=== PATIENT | male | born 1955 | race Caucasian/White ===

== ENCOUNTER → 2017-02-09 | Outpatient (CLI) | payer OTHER ==
[2017-02-09 09:22] LABS: EKG EKG PERFORMED
[2017-02-09 10:10] LABS: Appearance,Urine Clear (Clear); Bilirubin,Urine Negative (Negative); Glucose,Urine (UA) 3+ (Negative); Ketones,Urine Negative (Negative); Leukocyte Esterase,Urine Negative (Negative); Nitrite,Urine Negative (Negative); Protein,Urine Trace (Negative); Specific Gravity,Urine 1.021 (1.001-1.035); UA Billing (MACRO vs. MICRO) CHEM
[2017-02-09 10:16] LABS: CH 33.3; CHCM 35.8; HCT 47.4 % (39.0-53.0); HDW 2.66; HGB 16.2 gm/dL (13.0-17.5); MCH 31.9 pg (25.0-35.0); MCHC 34.2 g/dL (31.0-37.0); MCV 93.4 fL (80.0-100.0); Mean Platelet Volume 7.5; RBC 5.07 m/uL (4.30-5.90); RDW 14.1 % (11.5-15.5); WBC 7.3 k/uL (3.8-10.6)
[2017-02-09 10:24] LABS: INR 1.1 (<1.2); Partial Thromboplastin Time 23.1 sec (22.0-30.0); Prothrombin Time 10.6 sec (9.0-12.0)
[2017-02-09 10:49] LABS: ALT 89 U/L (21-72); AST 46 U/L (17-59); Alkaline Phosphatase 81 U/L (38-126); Anion Gap 10 mmol/L; Blood Urea Nitrogen 16 mg/dL (9-20); Calcium 9.5 mg/dL (8.4-10.2); Carbon Dioxide 27 mmol/L (22-30); Chloride 103 mmol/L (98-107); Glucose 185 mg/dL (74-99); Non-African American GFR(MDRD) >60 (>60 ml/min/1.73 sqM); Potassium 4.8 mmol/L (3.5-5.1); Sodium 140 mmol/L (137-145); Total Bilirubin 0.8 mg/dL (0.2-1.3); Total Protein 7.1 g/dL (6.3-8.2)
== END | disposition home or self-care (01) ==
LOC: LABPAT 09:09
PROVIDERS: ATTEND Orthopaedic Surgery
DX: Z01.810 Encounter for preprocedural cardiovascular examination (principal); M16.11 Unilateral primary osteoarthritis, right hip; Z01.812 Encounter for preprocedural laboratory examination
CPT/HCPCS: 80053; 81003; 85027; 85610; 85730; 87070; 93005

== ENCOUNTER 2017-02-20 05:52 | Inpatient (IN) | payer OTHER ==
[2017-02-13 09:35] VITALS: BMI 31.8
[~2017-02-20 05:52] MED LIST: ACETAMINOPHEN TAB 500 MG TAB PO ONE; MELOXICAM 7.5 MG TAB PO ONE; ONDANSETRON 4 MG/2 ML VIAL IVP ONE; TRANEXAMIC ACID 1,000 MG in SODIUM CHLORIDE 0.9% 100 ML IVPB ONE; ceFAZolin 2 GM in SODIUM CHLORIDE 0.9% 100 ML IVPB ONE
[2017-02-20] MEDS ORDERED: LACTATED RINGERS 1,000 ML IV SCH (06:00)
[2017-02-20] MEDS ORDERED: DEXAMETHASONE SOD PHOSPHATE 10 MG/ML 1 ML VIAL IV ONE (06:00)
[2017-02-20] MEDS ORDERED: MIDAZOLAM 2 MG/2 ML VIAL IV PRN (06:00)
[2017-02-20] MEDS ORDERED: ONDANSETRON 4 MG/2 ML VIAL IVP ONE (06:00)
[2017-02-20] MEDS ORDERED: HYDROmorphone 1 MG/ML 1 ML SYRINGE IVP PRN ×3 (06:00→09:48)
[2017-02-20] MEDS ORDERED: SCOPOLAMINE 1.5MG/72HR PATCH TRANSDERM ONE (06:00)
[2017-02-20 06:49] LABS: Glucose,Whole Blood 207 mg/dL (75-99)
[2017-02-20 06:54] VITALS: RESP 16
[2017-02-20] MEDS ORDERED: LIDOCAINE 1% 20 ML VIAL (10MG/ML) FOR IV START INTRADERMA ONE (06:55)
[2017-02-20] MEDS ORDERED: MIDAZOLAM 2 MG/2 ML VIAL ONE (07:40)
[2017-02-20] MEDS ORDERED: ePHEDrine SULFATE/0.9% NACL/PF 50 MG/5 ML SYRINGE IV ONE (07:40)
[2017-02-20] MEDS ORDERED: TRANEXAMIC ACID 1,000 MG/10 ML VIAL ONE (07:40)
[2017-02-20] MEDS ORDERED: ceFAZolin 3,000 MG in SODIUM CHLORIDE 0.9% IRRIGATIO 3,000 ML IRRIGATION ONE (07:40)
[2017-02-20] MEDS ORDERED: SODIUM CHLORIDE 0.9% 100 ML BAG ONE (07:40)
[2017-02-20] MEDS ORDERED: fentaNYL (PF) 50 MCG/ML 2 ML AMP ONE (07:40)
[2017-02-20] MEDS ORDERED: ROPIVACAINE 246.25 MG, EPINEPHrine 0.5 MG, KETOROLAC 30 MG, cloNIDine HCL/PF 80 MCG, WA... MISCELLANE ONE ×5 (07:53)
[2017-02-20] MEDS ORDERED: LACTATED RINGERS 1,000 ML IV ONE ×3 (08:43→10:41)
[2017-02-20] MEDS ORDERED: NALOXONE 0.4 MG/ML 1 ML VIAL IV PRN (09:45)
[2017-02-20] MEDS ORDERED: hydrOXYzine PAMOATE 25 MG CAP PO PRN (09:48)
[2017-02-20] MEDS ORDERED: ONDANSETRON 4 MG/2 ML VIAL IVP PRN (09:48)
[2017-02-20] MEDS ORDERED: HYDROcodone/APAP 5-325MG 1 EACH TAB PO PRN (09:48)
[2017-02-20] MEDS ORDERED: MAGNESIUM HYDROXIDE 2,400 MG/10 ML CUP PO PRN (09:48)
[2017-02-20 10:09] LABS: Glucose,Whole Blood 206 mg/dL (75-99)
--- NOTE | 2017-02-20 10:11 | XR ---
EXAMINATION TYPE: XR Hip Limited RT DATE OF EXAM: 02/20/2017 CLINICAL HISTORY: Right hip pain and osteoarthritis. TECHNIQUE: Single AP portable view of right hip is obtained immediately postoperatively. COMPARISON: None. FINDINGS: Metallic hardware from right hip arthroplasty is seen and appears satisfactory in alignment and position. There is evidence of recent surgery with subcutaneous gas noted laterally. IMPRESSION: Metallic hardware from right hip arthroplasty is satisfactory in position.
[2017-02-20] MEDS ORDERED: INSULIN LISPRO (humaLOG) 300 UNIT/3 ML VIAL SQ ONE (10:12)
--- NOTE | 2017-02-20 10:32 | P.OP ---
Date of Procedure: 02/20/17 Preoperative Diagnosis: Postoperative Diagnosis: Procedure(s) Performed: PREOPERATIVE DIAGNOSIS: Right hip severe osteoarthritis POSTOPERATIVE DIAGNOSIS: 1. Right hip severe osteoarthritis 2. Ganglion cyst, posterior hip joint OPERATION: 1. Right hip total replacement arthroplasty (uncemented implantation with ceramic on polyethylene articulation). 2. Ganglion cyst excision, posterior hip joint ANESTHESIA: Spinal ESTIMATED BLOOD LOSS: 250 mL. CRANE ASSEMBLER: Terri Simmons PA-C (assistance with: patient positioning, retraction, exposure, hemostasis, leg positioning, implantation, irrigation, closure, dressing) COMPLICATIONS: None apparent. COMPONENTS IMPLANTED: Lupe continuum acetabular cup with cluster holes; continuum longevity 15 elevated liner, 32 mm id; Lupe VerSys Fiber Metal stem ; VerSys 32 mm femoral head with +7 mm neck length extension INDICATIONS: Stalin is a 61-year-old male with significant end-stage osteoarthritis involving the right hip and commensurate severe symptoms. He presents to the operating room today for total hip replacement. I have discussed the steps of the operation as well as potential risks and complications as being inclusive of, but not limited to: Leading, infection, scarring, discomfort, or vessel and/or nerve damage, need for further surgery, loosening, dislocation, wear, osteolysis, limb length inequality, fracture, blood clot, pulmonary embolism, , persistent limp, and other risks. The patient is aware these risks and wishes to proceed with surgery and has signed a consent form. PROCEDURE: After appropriate consent was obtained, the patient was taken to the operating room and placed in supine position. Spinal anesthetic was administered and after confirmation of adequate anesthesia, the patient was placed into the lateral decubitus position with the right side up. Care was taken to make sure that all pressure points were adequately padded and he was stabilized to the table with a [place] hip positioner. The right hip was prepped and draped in the usual aseptic fashion using a combination of ChloraPrep and alcohol. [place]an drape was used for the case and the patient received intravenous antibiotics prior to the incision. "Time out" was called , confirming patient identity, side, procedure, availability of implants and administration of antibiotics. The incision was created directly over the greater trochanter and carried slightly posteriorly for a posterior approach to the hip. The incision was then deepened down to subcutaneous tissue and fascia veronica. Fascia veronica was split in line with the incision and split proximally along the fibers of the gluteus marilee. The underlying fibers of the muscle were teased apart using finger dissection and bleeding vessels were picked up and coagulated. Retractor was then placed posteriorly consisting of a blunt Beata. The short external rotators and capsule were exposed using a early elevator and good visualization of the attachment of the external rotators to the femur was established. Of note, a ganglion cyst was noted on the posterior aspect of the joint and was removed during the course of the operation. The cyst fluid was sent for analysis, confirming a cyst with frozen section. The short external rotators and capsule were released using electrocautery from their femoral attachments. These were tagged for later repair. A hockey stick shaped incision was created in the capsule. Joint fluid was evacuated and the patient's hip was able to be dislocated fairly easily. The patient's femoral head was severely arthritic with eburnated bone present and a 360 degrees corcoran of osteophytes. The femoral neck cut was created approximately 5 mm superior to the lesser trochanter using a reciprocating saw. The femoral head and neck fragment was removed and attention was then directed to the acetabulum. An anterior acetabular retractor was applied followed by posterior retraction of the capsule with a Meyerding retractor. This afforded good visualization into the acetabular cavity. Soft tissue was removed and residual cartilage within the acetabular vault was removed using a curette. Labrum was removed using a long-handled knife. Attention was then directed to reaming. The size 48 reamer was used first, followed by increasing increments until the final size reamer was used. Please see the implantation sheet for exact sizes used for the components. Once the final reamer had been utilized to expand the socket it was noted that there was a good supportive bone around the acetabular socket and no further reaming needed to be performed. The trial the same size as the last reamer used was then impacted into the acetabular vault and found to have good fit. The acetabular component, one size (2mm) greater than the trial was then called for. The cluster holes were placed posteriorly and the component was impacted in a position of approximately 40 degrees abduction and 20 degrees anteversion. This matched this patient's kasaan anteversion and it was noted that the cup had excellent stability without need for additional screw fixation. Attention was then directed to the acetabular liner. The anteversion and abduction angle of the component was noted to be very good. A 15 elevated liner was used and locked into position with the elevation posterior superior. Osteophytes around the posterior and inferior aspect of the acetabulum were trimmed as necessary to prevent any impingement. Attention was then directed back to the proximal femur. Retractors were placed around the proximal femur and box osteotome was used followed by canal finder and trochanteric reamer. Cylindrical reaming was performed. Progressive broaching was then performed starting with a #10 broach and progressing final size, in a position of 15 degrees anteversion. Platinum anteversion was within 5 degrees of stem position. The final size broach had excellent fit and fill of the patient's metaphysis and diaphysis. Trial reduction was then performed starting with size 32 mm femoral head and various neck combination of stability , limb length equality, and soft tissue tension. Trial components were then removed. The canal was lavaged and the final size femoral stem component was impacted into position. The implant fit very well and had excellent stability. The femoral head was then impacted onto the [place]re[place] taper. Blood and debris were removed from the acetabular component and the hip was then reduced and checked for stability, limb length and soft tissue tension. These parameters found to be satisfactory, the wound was then thoroughly irrigated with normal saline. Final hemostasis was obtained using electrocautery and IV tranexamic acid, 1 g given at the time of prepping and draping, and another 1 g given at the time of closure. Local anesthetic solution consisting of ropivacaine with epinephrine, clonidine, and ketorolac was also used throughout the case targeting the capsule , fascia, and skin. Closure of the capsule was performed meticulously using #3 Vicryl suture. Four [id number] sutures were placed in the posterior capsule along with repair of the external rotators. The fascia veronica was then repaired using combination of #3 Vicryl suture in interrupted fashion and Quill and running fashion. 2-0 Vicryl suture was used for the subcutaneous tissues and 3-0 Quill for the skin. Dermabond or Steri-Strips were then applied. The patient tolerated the procedure well. There were no complications and the wound bed was dry and there was no need for drain placement. Sterile dressing was then applied and the patient was carefully removed from the operating room table , placed on the stretcher and was taken to the recovery room in stable condition. Sponge and needle counts were correct. Implants: Indications for Procedure: Operative Findings: Description of Procedure:
[2017-02-20] MEDS: MULTIVITAMINS, THERA 1 EACH TAB PO SCH (12:33)
[2017-02-20] MEDS: LACTATED RINGERS 1,000 ML IV SCH (12:35)
[2017-02-20] MEDS: HYDROcodone/APAP 5-325MG 1 EACH TAB PO PRN ×2 (14:01→20:35)
[2017-02-20] MEDS: ceFAZolin 2 GM in SODIUM CHLORIDE 0.9% 100 ML IVPB SCH (18:00)
[2017-02-20] MEDS ORDERED: WARFARIN 5 MG TAB PO ONE (18:00)
[2017-02-20 18:02] LABS: Glucose,Whole Blood 216 mg/dL (75-99)
[2017-02-20] MEDS: INSULIN LISPRO (humaLOG) 300 UNIT/3 ML VIAL SQ SCH ×2 (18:06→20:43)
[2017-02-20] MEDS: metFORMIN 500 MG TAB PO SCH (18:07)
[2017-02-20] MEDS: glipiZIDE 10 MG TAB PO SCH (18:07)
[2017-02-20 20:44] LABS: Glucose,Whole Blood 201 mg/dL (75-99)
[2017-02-20] MEDS ORDERED: metFORMIN 500 MG TAB PO SCH (21:00)
[2017-02-20] MEDS ORDERED: SENNOSIDES-DOCUSATE SODIUM 1 EACH TAB PO SCH (21:00)
[2017-02-20] MEDS: HYDROmorphone 1 MG/ML 1 ML SYRINGE IVP PRN (21:40)
[2017-02-21] MEDS: ceFAZolin 2 GM in SODIUM CHLORIDE 0.9% 100 ML IVPB SCH (02:06)
[2017-02-21] MEDS: HYDROmorphone 1 MG/ML 1 ML SYRINGE IVP PRN (04:02)
[2017-02-21] MEDS: HYDROcodone/APAP 5-325MG 1 EACH TAB PO PRN ×2 (05:51→10:54)
[2017-02-21] MEDS: LACTATED RINGERS 1,000 ML IV SCH ×3 (07:06→09:24)
[2017-02-21 07:12] VITALS: BP 115/68; TEMP 97
[2017-02-21 07:29] LABS: Glucose,Whole Blood 149 mg/dL (75-99)
[2017-02-21] MEDS ORDERED: PANTOPRAZOLE 40 MG TABLET PO SCH (07:30)
[2017-02-21] MEDS: metFORMIN 500 MG TAB PO SCH (07:38)
[2017-02-21] MEDS: glipiZIDE 10 MG TAB PO SCH (07:39)
--- NOTE | 2017-02-21 07:41 | P.CONS ---
History of Present Illness - Reason for Consult Consult date: 02/20/17 heterotopic ossification prophylaxis Requesting physician: Charlie Darling - Chief Complaint right hip ALEXANDRE - History of Present Illness The patient is a 61 year old male with a history of end-stage osteoarthritis of the right hip. His chief complaint was progressively worsening right hip pain and difficulty wiht ambulation. Under the care of Dr. Darling, the patient underwent a right ALEXANDRE and ganglion cyst removal on 02/20/2017. Postoperatively, the patient reports that he does have some soreness but that he is doing well. He has already been working with physical therapy and has been sitting up in a chair. The pain is tolerable, and he is currently non-weight bearing on the right. Review of Systems Constitutional: Denies chills, Denies fever Eyes: denies blurred vision Ears: deny: decreased hearing Ears, nose, mouth and throat: Denies neck lump Cardiovascular: Denies chest pain Respiratory: Denies congestion Gastrointestinal: Denies abdominal pain Musculoskeletal: right: hip pain (postop pain) Neurological: Denies aphasia Psychiatric: Denies confusion Past Medical History Past Medical History: Cancer, Diabetes Mellitus, Deep Vein Thrombosis (DVT), GERD/Reflux, Hyperlipidemia, Hypertension, Prostate Disorder, Sleep Apnea/CPAP/ BIPAP Additional Past Medical History / Comment(s): varicose veins, sleep apnea hx - corrected by surgery, hx prostate cancer History of Any Multi-Drug Resistant Organisms: None Reported Past Surgical History: Orthopedic Surgery, Prostate Surgery, Tonsillectomy Additional Past Surgical History / Comment(s): surgery for sleep apnea, left hand carpal tunnel Past Anesthesia/Blood Transfusion Reactions: No Reported Reaction Smoking Status: Current every day smoker - Past Family History Mother Family Medical History: No Reported History Medications and Allergies Home Medications Medication Instructions Recorded Confirmed Type Aspirin [Adult Low Dose Aspirin EC] 81 mg PO DAILY 02/13/17 02/20/17 History Cyanocobalamin (Vitamin B-12) 1,000 mcg PO DAILY 02/13/17 02/20/17 History [Vitamin B-12] HYDROcodone/APAP 5-325MG [[place] 1 tab PO Q6HR PRN 02/13/17 02/20/17 History 5-325] Hydrochlorothiazide 12.5 mg PO DAILY 02/13/17 02/20/17 History Ibuprofen [Motrin] 800 mg PO TID 02/13/17 02/20/17 History Lansoprazole [Prevacid] 15 mg PO DAILY 02/13/17 02/20/17 History Lisinopril 40 mg PO DAILY 02/13/17 02/20/17 History [place]-3 Acid Ethyl Esters [Lovaza] 1 gm PO BID 02/13/17 02/20/17 History Vitamin B 1 250 mg PO DAILY 02/13/17 02/20/17 History glyBURIDE [Diabeta] 5 mg PO BID 02/13/17 02/20/17 History metFORMIN HCL 1,000 mg PO BID 02/13/17 02/20/17 History metFORMIN HCL [Glucophage Xr] 500 mg PO HS 02/13/17 02/20/17 History HYDROcodone/APAP 5-325MG [[place] 1 - 2 each PO Q4-6H PRN #90 tab 02/20/17 Rx 5-325] Sennosides-Docusate Sodium 1 tab PO BID #60 tablet 02/20/17 Rx [Senokot-S] Warfarin [Coumadin] 2.5 mg PO DAILY 02/20/17 02/20/17 History Warfarin [Coumadin] 2.5 mg PO DAILY #1 tab 02/20/17 Rx Warfarin [Coumadin] 7.5 mg PO ONCE 02/20/17 02/20/17 History Allergies Allergy/AdvReac Type Severity Reaction Status Date / Time No Known Allergies Allergy Verified 02/20/17 06:19 Physical Exam Vitals: Vital Signs Temp Pulse Pulse Resp BP Pulse Ox 02/21/17 07:11 97.0 F L 95 16 115/68 95 02/21/17 02:22 98.8 F 91 16 141/71 98 02/20/17 22:00 99.2 F 99 16 145/72 98 02/20/17 12:45 94 104/66 02/20/17 12:30 98 104/66 02/20/17 12:15 99 103/61 02/20/17 12:00 95 106/63 02/20/17 11:45 94 99/63 02/20/17 11:30 90 110/65 02/20/17 11:15 92 107/64 02/20/17 11:00 83 94/73 02/20/17 10:45 96.4 F L 92 16 100/63 93 L 02/20/17 10:40 90 16 91/56 98 02/20/17 10:25 86 16 90/54 98 02/20/17 09:57 95 16 90/55 96 02/20/17 09:42 98.4 F 96 16 97/56 96 Intake and Output 02/20/17 02/21/17 02/21/17 22:59 06:59 14:59 Intake Total 827 Balance 827 Intake: Oral 827 Other: Voiding Method Toilet Urinal # Voids 1 - Constitutional General appearance: average body habitus, no acute distress - EENT Eyes: EOMI - Neck Neck: no lymphadenopathy - Respiratory Respiratory: bilateral: CTA - Cardiovascular Rhythm: regular Heart sounds: normal: S1, S2 - Gastrointestinal General gastrointestinal: no rigid, no tenderness - Integumentary Integumentary: no flushed, no jaundiced - Neurologic Neurologic: CNII-XII intact - Musculoskeletal Musculoskeletal: strength equal bilaterally - Psychiatric Psychiatric: A&O x's 3 right hip bandage clean, dry and intact Results Labs: Abnormal Lab Results - Last 24 Hours (Table) 02/20/17 02/20/17 02/20/17 Range/Units 10:07 17:59 20:42 POC Glucose (mg/dL) 206 H 216 H 201 H (75-99) mg/dL 02/21/17 Range/Units 07:28 POC Glucose (mg/dL) 149 H (75-99) mg/dL Microbiology - Last 24 Hours (Table) 02/20/17 08:25 Gram Stain - Preliminary Hip - Right 02/20/17 08:25 Anaerobic Culture - Preliminary Hip - Right Assessment and Plan Plan: 1. Right ALEXANDRE heterotopic ossification prophylaxis: I discussed with the patient that it was felt that he would benefit from prophylactic treatment for heterotopic bone formation. I explained that heterotopic bone forms postoperatively and can increase pain, discomfort and cause decreased range of motion as well as life of the prosthesis. I explained that a single dose of radiotherapy delivered to the hip within the first 48-72 hours postoperatively has been shown to decrease formation of this heterotopic bone growth. I discussed that this would have minimal toxicity but may cause some fatigue, mild skin changes, reversible azoospermia and rarely issues with healing. The patient has a previous history of prostate cancer treated with radical prostatectomy, but never was given radiotherapy. The patient is agreeable to undergo this therapy. He will be brought down this afternoon for treatment. ADDENDUM: Single fraction of radiotherapy delivered without incident approximately 5 pm 02/20/17. Time with Patient: Greater than 30
[2017-02-21 07:47] VITALS: PULSE 90
[2017-02-21 07:47] LABS: Basophils % (A) 0 %; CH 32.3; Eosinophils % (A) 0 %; HCT 36.6 % (39.0-53.0); HDW 2.72; Luc # (Auto) 0.22; Luc % (Auto) 2; Lymphocytes # (A) 1.7 k/uL (1.0-4.8); Lymphocytes % (A) 15 %; MCH 32.2 pg (25.0-35.0); MCHC 35.7 g/dL (31.0-37.0); MCV 90.1 fL (80.0-100.0); Monocytes # (A) 0.9 k/uL (0-1.0); Monocytes % (A) 8 %; Neutrophils # (A) 8.4 k/uL (1.3-7.7); Neutrophils % (A) 75 %; RBC 4.07 m/uL (4.30-5.90); RDW 12.7 % (11.5-15.5); WBC 11.3 k/uL (3.8-10.6); WBC (Perox) 12.06
[2017-02-21] MEDS: INSULIN LISPRO (humaLOG) 300 UNIT/3 ML VIAL SQ SCH (07:47)
[2017-02-21 07:48] LABS: HGB 13.1 gm/dL (13.0-17.5)
[2017-02-21 07:52] LABS: INR 1.5 (<1.2); Prothrombin Time 15.1 sec (9.0-12.0)
[2017-02-21] MEDS ORDERED: HYDROCHLOROTHIAZIDE 12.5 MG CAP PO SCH (09:00)
[2017-02-21] MEDS ORDERED: MELOXICAM 7.5 MG TAB PO SCH (09:00)
[2017-02-21] MEDS ORDERED: LISINOPRIL 20 MG TAB PO SCH (09:00)
--- NOTE | 2017-02-21 09:35 | P.DS ---
Providers Date of admission: 02/20/17 05:52 Expected date of discharge: 02/21/17 Attending physician: Charlie Darling Consults: 02/20/17 09:44 Consult Physician Urgent Consulting Provider: Royce Sampson Consult Reason/Comments: Radiation right hip Do you want consulting provider notified?: Yes 02/20/17 09:48 Consult Physician Routine Consulting Provider: Ana Maria Polk Consult Reason/Comments: medical management Do you want consulting provider notified?: Yes Primary care physician: James Cortes - Discharge Diagnosis(es) (1) Primary localized osteoarthritis of right hip Current Visit: Yes Status: Acute (2) Status post total hip replacement, right Current Visit: Yes Status: Acute Hospital Course: This is a 61-year-old male with known history of degenerative arthritis of the right hip. The patient presents for evaluation. After discussion and consideration patient elects to proceed with total right hip arthroplasty. The patient is seen preoperatively by his primary care physician and cleared for surgery. Patient is admitted to [facility] on 02/20/2017 for total hip arthroplasty. The procedures performed without complication or sequelae. The patient is doing well postoperatively. Labs and vital signs are stable on day of discharge. On day of discharge patient's hip incision is healing well. There is minimal erythema. There is no drainage noted at this time. There is minimal soft tissue swelling to the hip and thigh. Patient has full foot and ankle motion without difficulty or pain. Neurovascular status to the right lower extremity is intact. Patient is discharged to home in good condition. Please see med rec for accurate list of home medications. Plan - Discharge Summary New Discharge Prescriptions: New HYDROcodone/APAP 5-325MG [[place] 5-325] 1 - 2 each PO Q4-6H PRN #90 tab PRN Reason: Pain Sennosides-Docusate Sodium [Senokot-S] 1 tab PO BID #60 tablet Warfarin [Coumadin] 2.5 mg PO DAILY #1 tab No Action Cyanocobalamin (Vitamin B-12) [Vitamin B-12] 1,000 mcg PO DAILY Aspirin [Adult Low Dose Aspirin EC] 81 mg PO DAILY glyBURIDE [Diabeta] 5 mg PO BID metFORMIN HCL [Glucophage Xr] 500 mg PO HS metFORMIN HCL 1,000 mg PO BID [place]-3 Acid Ethyl Esters [Lovaza] 1 gm PO BID Lisinopril 40 mg PO DAILY Vitamin B 1 250 mg PO DAILY Lansoprazole [Prevacid] 15 mg PO DAILY Hydrochlorothiazide 12.5 mg PO DAILY Ibuprofen [Motrin] 800 mg PO TID HYDROcodone/APAP 5-325MG [[place] 5-325] 1 tab PO Q6HR PRN PRN Reason: Moderate To Severe Pain Warfarin [Coumadin] 7.5 mg PO ONCE Warfarin [Coumadin] 2.5 mg PO DAILY Discharge Medication List Aspirin [Adult Low Dose Aspirin EC] 81 mg PO DAILY 02/13/17 [History] Cyanocobalamin (Vitamin B-12) [Vitamin B-12] 1,000 mcg PO DAILY 02/13/17 [ History] HYDROcodone/APAP 5-325MG [[place] 5-325] 1 tab PO Q6HR PRN 02/13/17 [History] Hydrochlorothiazide 12.5 mg PO DAILY 02/13/17 [History] Ibuprofen [Motrin] 800 mg PO TID 02/13/17 [History] Lansoprazole [Prevacid] 15 mg PO DAILY 02/13/17 [History] Lisinopril 40 mg PO DAILY 02/13/17 [History] [place]-3 Acid Ethyl Esters [Lovaza] 1 gm PO BID 02/13/17 [History] Vitamin B 1 250 mg PO DAILY 02/13/17 [History] glyBURIDE [Diabeta] 5 mg PO BID 02/13/17 [History] metFORMIN HCL 1,000 mg PO BID 02/13/17 [History] metFORMIN HCL [Glucophage Xr] 500 mg PO HS 02/13/17 [History] HYDROcodone/APAP 5-325MG [[place] 5-325] 1 - 2 each PO Q4-6H PRN #90 tab 02/20/17 [Rx] Sennosides-Docusate Sodium [Senokot-S] 1 tab PO BID #60 tablet 02/20/17 [Rx] Warfarin [Coumadin] 2.5 mg PO DAILY 02/20/17 [History] Warfarin [Coumadin] 2.5 mg PO DAILY #1 tab 02/20/17 [Rx] Warfarin [Coumadin] 7.5 mg PO ONCE 02/20/17 [History] Follow up Appointment(s)/Referral(s): Terri Simmons, [place] [[facility]] - 2 Weeks Activity/Diet/Wound Care/Special Instructions: May shower if no drainage from inicision. Toe touch wt bearing RLE w walker. Discharge Disposition: HOME WITH HOME HEALTH SERVICES
[2017-02-21] MEDS: MULTIVITAMINS, THERA 1 EACH TAB PO SCH (10:55)
[2017-02-21 11:41] LABS: Glucose,Whole Blood 208 mg/dL (75-99)
[2017-02-21] MEDS ORDERED: CYANOCOBALAMIN 500 MCG TAB PO SCH (12:00)
--- NOTE | 2017-02-21 15:25 | P.CONS ---
History of Present Illness - Reason for Consult Consult date: 02/21/17 Medical management. - History of Present Illness This is a 61-year-old gentleman not patient was initially briefly evaluated and 02/20/17 however patient had to be moved to radiation therapy and hence a note and a complete consultation is being made on 02/21/2017 Patient was admitted to the hospital after significant osteoarthritis of the right hip status post hip replacement. Patient also underwent a brief radiation therapy thereafter The patient has a history of DVT, hypertension, diabetes mellitus, hypothyroidism. Patient today states that he is doing well denies having any headaches blurry vision nausea vomiting diarrhea. Patient continues to smoke cigarettes however states he quit at this time Review of systems 14 point review of systems was done nonpertinent then all as mentioned above Physical exam Gen. appearance oriented 3 in no distress Neck is supple no JVD Lungs good air entry clear to auscultation no rhonchi or wheezing Heart S1-S2 heard regular rate and rhythm no murmurs appreciated Abdomen is soft nontender no organomegaly bowel sounds are intact Neurologically cranial nerves II-12 grossly intact no focal motor or sensory deficits noted Musculoskeletal right hip tender to palpation appropriately Skin no abnormalities appreciated Assessment and plan #1 osteoarthritis status post hip replacement #2 history of DVT. #3 essential hypertension #4 dyslipidemia #5 diabetes mellitus type II #6 osteoarthritis #7 hypothyroidism Plan Continue Coumadin for his previous history of DVT and current prophylaxis Blood pressures are stable medications were reconciled on admission and discharge negative for the consultation Past Medical History Past Medical History: Cancer, Diabetes Mellitus, Deep Vein Thrombosis (DVT), GERD/Reflux, Hyperlipidemia, Hypertension, Prostate Disorder, Sleep Apnea/CPAP/ BIPAP Additional Past Medical History / Comment(s): varicose veins, sleep apnea hx - corrected by surgery, hx prostate cancer History of Any Multi-Drug Resistant Organisms: None Reported Past Surgical History: Orthopedic Surgery, Prostate Surgery, Tonsillectomy Additional Past Surgical History / Comment(s): surgery for sleep apnea, left hand carpal tunnel Past Anesthesia/Blood Transfusion Reactions: No Reported Reaction Smoking Status: Current every day smoker - Past Family History Mother Family Medical History: No Reported History Medications and Allergies Home Medications Medication Instructions Recorded Confirmed Type Aspirin [Adult Low Dose Aspirin EC] 81 mg PO DAILY 02/13/17 02/20/17 History Cyanocobalamin (Vitamin B-12) 1,000 mcg PO DAILY 02/13/17 02/20/17 History [Vitamin B-12] HYDROcodone/APAP 5-325MG [[place] 1 tab PO Q6HR PRN 02/13/17 02/20/17 History 5-325] Hydrochlorothiazide 12.5 mg PO DAILY 02/13/17 02/20/17 History Lansoprazole [Prevacid] 15 mg PO DAILY 02/13/17 02/20/17 History Lisinopril 40 mg PO DAILY 02/13/17 02/20/17 History Vitamin B 1 250 mg PO DAILY 02/13/17 02/20/17 History glyBURIDE [Diabeta] 5 mg PO BID 02/13/17 02/20/17 History metFORMIN HCL 1,000 mg PO BID 02/13/17 02/20/17 History metFORMIN HCL [Glucophage Xr] 500 mg PO HS 02/13/17 02/20/17 History HYDROcodone/APAP 5-325MG [[place] 1 - 2 each PO Q4-6H PRN #90 tab 02/20/17 Rx 5-325] Sennosides-Docusate Sodium 1 tab PO BID #60 tablet 02/20/17 Rx [Senokot-S] Warfarin [Coumadin] 2.5 mg PO DAILY 02/20/17 02/20/17 History Warfarin [Coumadin] 2.5 mg PO DAILY #1 tab 02/20/17 Rx Warfarin [Coumadin] 7.5 mg PO ONCE 02/20/17 02/20/17 History Allergies Allergy/AdvReac Type Severity Reaction Status Date / Time No Known Allergies Allergy Verified 02/20/17 06:19 Physical Exam Vitals: Vital Signs Temp Pulse Pulse Resp BP Pulse Ox 02/21/17 07:11 97.0 F L 95 16 115/68 95 02/21/17 02:22 98.8 F 91 16 141/71 98 02/20/17 22:00 99.2 F 99 16 145/72 98 02/20/17 21:00 90 95 16 Intake and Output 02/21/17 02/21/17 02/21/17 06:59 14:59 22:59 Intake Total 1400 Output Total 450 Balance 950 Intake: Intake, IV Titration 800 Amount Lactated Ringers 1,000 ml 800 @ 100 mls/hr IV .Q10H [facility] Rx#:[id number] Oral 600 Output: Urine 450 Other: Voiding Method Toilet Urinal # Voids 2 Weight 106.594 kg Patient Weight 02/22/17 06:59 Weight 106.594 kg Results CBC & Chem 7: 02/21/17 06:57 Labs: Abnormal Lab Results - Last 24 Hours (Table) 02/20/17 02/20/17 02/21/17 Range/Units 17:59 20:42 06:57 WBC 11.3 H (3.8-10.6) k/uL RBC 4.07 L (4.30-5.90) m/uL Hct 36.6 L (39.0-53.0) % Neutrophils # 8.4 H (1.3-7.7) k/uL PT (9.0-12.0) sec INR (<1.2) POC Glucose (mg/dL) 216 H 201 H (75-99) mg/dL 02/21/17 02/21/17 02/21/17 Range/Units 06:57 07:28 11:40 WBC (3.8-10.6) k/uL RBC (4.30-5.90) m/uL Hct (39.0-53.0) % Neutrophils # (1.3-7.7) k/uL PT 15.1 H (9.0-12.0) sec INR 1.5 H (<1.2) POC Glucose (mg/dL) 149 H 208 H (75-99) mg/dL Microbiology - Last 24 Hours (Table) 02/20/17 08:25 Gram Stain - Preliminary Hip - Right Wound Culture - Preliminary 02/20/17 08:25 Anaerobic Culture - Preliminary Hip - Right
[2017-02-21] MEDS ORDERED: WARFARIN 7.5 MG TAB PO ONE (18:00)
[2017-02-21] MEDS ORDERED: TEMAZEPAM 15 MG CAP PO PRN (22:00)
[2017-02-22] MEDS ORDERED: WARFARIN 2.5 MG TAB PO SCH (18:00)
== END 2017-02-21 17:32 | disposition home health service (06) | DRG 470 ==
LOC: 2ORMAIN 05:52 → 3SUR 09:49
PROVIDERS: ADMIT Orthopaedic Surgery; ATTEND Orthopaedic Surgery
PROC: 0SB90ZZ Excision of Right Hip Joint, Open Approach (ICD-10-PCS; 2017-02-20)
PROC: 0SR904A Replacement of Right Hip Joint with Ceramic on Polyethylene Synthetic Substitute, Uncemented, Open Approach (ICD-10-PCS; principal; 2017-02-20 07:30)
DX: M16.11 Unilateral primary osteoarthritis, right hip (principal); E11.22 Type 2 diabetes mellitus with diabetic chronic kidney disease; E03.9 Hypothyroidism, unspecified; E78.5 Hyperlipidemia, unspecified; F17.210 Nicotine dependence, cigarettes, uncomplicated; G47.30 Sleep apnea, unspecified; K21.9 Gastro-esophageal reflux disease without esophagitis; I83.90 Asymptomatic varicose veins of unspecified lower extremity; I12.9 Hypertensive chronic kidney disease with stage 1 through stage 4 chronic kidney disease, or unspecified chronic kidney disease; N18.2 Chronic kidney disease, stage 2 (mild); E78.00 Pure hypercholesterolemia, unspecified; M67.451 Ganglion, right hip; Z79.84 Long term (current) use of oral hypoglycemic drugs; Z79.01 Long term (current) use of anticoagulants; Z79.82 Long term (current) use of aspirin; Z79.899 Other long term (current) drug therapy; Z85.46 Personal history of malignant neoplasm of prostate; Z82.49 Family history of ischemic heart disease and other diseases of the circulatory system
CPT/HCPCS: 73501; 85025; 85610; 86850; 86900; 86901; 87070; 87075; 87205

== ENCOUNTER 2020-12-24 09:22 | Emergency (ER) | payer MEDICARE, OTHER ==
[2020-12-24 09:26] VITALS: TEMP 98.6
[2020-12-24] MEDS ORDERED: FUROSEMIDE 10 MG/ML 4 ML VIAL IV STA (09:40)
--- NOTE | 2020-12-24 09:43 | ED ---
General Adult HPI - General Chief complaint: Shortness of Breath Stated complaint: SOB Time Seen by Provider: 12/24/20 09:27 Source: patient, RN notes reviewed, old records reviewed Mode of arrival: ambulatory Limitations: no limitations - History of Present Illness Initial comments: 65-year-old male with a past medical history of heart failure, diabetes mellitus, hyperlipidemia, hypertension and DVT, prostate cancer since to the emergency room for a chief complaint of shortness of breath. Patient has had mild shortness of breath for the past few weeks. States that he has also had increased leg swelling. Patient takes 40 mg daily of Lasix usually for heart failure. He saw his doctor a week ago and they did increase it to 40 twice a day for 3 days. States this helped but as soon as he stopped his symptoms started again. Patient states now his shortness of breath is worse.Patient has no other complaints at this time including chest pain, abdominal pain, nausea or vomiting, headache, or visual changes. - Related Data Home Medications Medication Instructions Recorded Confirmed Aspirin [Adult Low Dose Aspirin EC] 81 mg PO DAILY 02/13/17 12/24/20 metFORMIN HCL 1,000 mg PO BID 02/13/17 12/24/20 metFORMIN HCL [Glucophage Xr] 500 mg PO HS 02/13/17 12/24/20 Clopidogrel [Plavix] 75 mg PO DAILY 12/24/20 12/24/20 Furosemide [Lasix] 40 mg PO DAILY 12/24/20 12/24/20 Insulin Glargine,Hum.rec.anlog 50 unit SQ 12/24/20 12/24/20 [Lantus Solostar] Isosorbide Mononitrate ER [Imdur] 60 mg PO DAILY 12/24/20 12/24/20 Lansoprazole [Prevacid] 30 mg PO DAILY 12/24/20 12/24/20 Magnesium Oxide [Mag-Ox] 400 mg PO DAILY 12/24/20 12/24/20 Metoprolol Succinate [Toprol XL] 100 mg PO DAILY 12/24/20 12/24/20 Pioglitazone [Actos] 30 mg PO DAILY 12/24/20 12/24/20 Rosuvastatin [Crestor] 10 mg PO DAILY 12/24/20 12/24/20 Spironolactone [Aldactone] 50 mg PO DAILY 12/24/20 12/24/20 hydrALAZINE HCL 50 mg PO Q12H 12/24/20 12/24/20 Allergies Allergy/AdvReac Type Severity Reaction Status Date / Time No Known Allergies Allergy Verified 12/24/20 10:38 Review of Systems ROS Statement: Those systems with pertinent positive or pertinent negative responses have been documented in the HPI. ROS Other: All systems not noted in ROS Statement are negative. Past Medical History Past Medical History: Cancer, Heart Failure, Diabetes Mellitus, Deep Vein Thrombosis (DVT), GERD/Reflux, Hyperlipidemia, Hypertension, Prostate Disorder, Sleep Apnea/CPAP/BIPAP Additional Past Medical History / Comment(s): varicose veins, sleep apnea hx - corrected by surgery, hx prostate cancer History of Any Multi-Drug Resistant Organisms: None Reported Past Surgical History: Orthopedic Surgery, Prostate Surgery, Tonsillectomy Additional Past Surgical History / Comment(s): surgery for sleep apnea, left hand carpal tunnel Past Anesthesia/Blood Transfusion Reactions: No Reported Reaction Past Psychological History: No Psychological Hx Reported Smoking Status: Current every day smoker Past Alcohol Use History: Occasional Past Drug Use History: None Reported - Past Family History Mother Family Medical History: No Reported History General Exam Limitations: no limitations General appearance: alert, in no apparent distress Head exam: Present: atraumatic, normocephalic, normal inspection Eye exam: Present: normal appearance, PERRL, EOMI. Absent: scleral icterus, conjunctival injection, periorbital swelling ENT exam: Present: normal exam, mucous membranes moist Neck exam: Present: normal inspection, full ROM. Absent: tenderness, meningismus, lymphadenopathy Respiratory exam: Present: normal lung sounds bilaterally. Absent: respiratory distress, wheezes, rales, rhonchi, stridor Cardiovascular Exam: Present: regular rate, normal rhythm, normal heart sounds. Absent: systolic murmur, diastolic murmur, rubs, gallop, clicks GI/Abdominal exam: Present: soft, normal bowel sounds. Absent: distended, tenderness, guarding, rebound, rigid Neurological exam: Present: alert Course Vital Signs 12/24/20 12/24/20 09:24 11:10 Temperature 98.6 F Pulse Rate 94 79 Respiratory 20 16 Rate Blood Pressure 190/99 153/83 O2 Sat by Pulse 98 97 Oximetry EKG Findings - EKG Comments: EKG Findings:: Normal sinus rhythm, ventricular rate 89, NJ interval 152, QTc 467 Medical Decision Making - Medical Decision Making vitals Are stable. Patient does have mild edema of the lower extremities. Lungs are clear. No rest for distress whatsoever. CBC unremarkable. Glucose 240, patient does have a history of diabetes mellitus for which he does take medication. Troponin is within normal limits. ENT is 9700, no baseline to compare. Chest x-ray shows possible bilateral opacities, no pleural effusions. Patient denies any increase in chronic cough. Denies fevers. No white count. Patient previously reported that he felt much better when he increased his 40 mg daily Lasix to twice a day for 3 days. At this time patient is comfortable with trying this again outpatient until he sees his doctor tomorrow morning. He was a given a dose of IV Lasix here in the emergency room. I patient returns for increased shortness of breath, fevers, or increased swelling. - Lab Data Result diagrams: 12/24/20 09:47 12/24/20 09:47 Lab Results 12/24/20 12/24/20 12/24/20 Range/Units 09:47 09:47 09:47 WBC 8.7 (3.8-10.6) k/uL RBC 4.32 (4.30-5.90) m/uL Hgb 12.5 L (13.0-17.5) gm/dL Hct 36.7 L (39.0-53.0) % MCV 84.9 (80.0-100.0) fL MCH 29.0 (25.0-35.0) pg MCHC 34.2 (31.0-37.0) g/dL RDW 13.4 (11.5-15.5) % Plt Count 469 H (150-450) k/uL MPV 7.2 Neutrophils % 82 % Lymphocytes % 11 % Monocytes % 5 % Eosinophils % 1 % Basophils % 1 % Neutrophils # 7.2 (1.3-7.7) k/uL Lymphocytes # 1.0 (1.0-4.8) k/uL Monocytes # 0.4 (0-1.0) k/uL Eosinophils # 0.1 (0-0.7) k/uL Basophils # 0.0 (0-0.2) k/uL PT 11.4 (9.0-12.0) sec INR 1.1 (<1.2) APTT 22.7 (22.0-30.0) sec Sodium 138 (137-145) mmol/L Potassium 4.8 (3.5-5.1) mmol/L Chloride 103 (98-107) mmol/L Carbon Dioxide 26 (22-30) mmol/L Anion Gap 9 mmol/L BUN 22 H (9-20) mg/dL Creatinine 0.86 (0.66-1.25) mg/dL Est GFR (CKD-EPI)AfAm >90 (>60 ml/min/1.73 sqM) Est GFR (CKD-EPI)NonAf >90 (>60 ml/min/1.73 sqM) Glucose 240 H (74-99) mg/dL Calcium 8.9 (8.4-10.2) mg/dL Magnesium 1.4 L (1.6-2.3) mg/dL Total Bilirubin 0.9 (0.2-1.3) mg/dL AST 19 (17-59) U/L ALT 7 (4-49) U/L Alkaline Phosphatase 61 (38-126) U/L Troponin I (0.000-0.034) ng/mL NT-Pro-B Natriuret Pep pg/mL Total Protein 6.3 (6.3-8.2) g/dL Albumin 3.9 (3.5-5.0) g/dL Coronavirus (PCR) (Not Detectd) 12/24/20 12/24/20 12/24/20 Range/Units 09:47 09:47 11:08 WBC (3.8-10.6) k/uL RBC (4.30-5.90) m/uL Hgb (13.0-17.5) gm/dL Hct (39.0-53.0) % MCV (80.0-100.0) fL MCH (25.0-35.0) pg MCHC (31.0-37.0) g/dL RDW (11.5-15.5) % Plt Count (150-450) k/uL MPV Neutrophils % % Lymphocytes % % Monocytes % % Eosinophils % % Basophils % % Neutrophils # (1.3-7.7) k/uL Lymphocytes # (1.0-4.8) k/uL Monocytes # (0-1.0) k/uL Eosinophils # (0-0.7) k/uL Basophils # (0-0.2) k/uL PT (9.0-12.0) sec INR (<1.2) APTT (22.0-30.0) sec Sodium (137-145) mmol/L Potassium (3.5-5.1) mmol/L Chloride (98-107) mmol/L Carbon Dioxide (22-30) mmol/L Anion Gap mmol/L BUN (9-20) mg/dL Creatinine (0.66-1.25) mg/dL Est GFR (CKD-EPI)AfAm (>60 ml/min/1.73 sqM) Est GFR (CKD-EPI)NonAf (>60 ml/min/1.73 sqM) Glucose (74-99) mg/dL Calcium (8.4-10.2) mg/dL Magnesium (1.6-2.3) mg/dL Total Bilirubin (0.2-1.3) mg/dL AST (17-59) U/L ALT (4-49) U/L Alkaline Phosphatase (38-126) U/L Troponin I 0.029 (0.000-0.034) ng/mL NT-Pro-B Natriuret Pep 9700 pg/mL Total Protein (6.3-8.2) g/dL Albumin (3.5-5.0) g/dL Coronavirus (PCR) Not Detected (Not Detectd) Disposition Clinical Impression: Congestive heart failure Disposition: HOME SELF-CARE Condition: Good Instructions (If sedation given, give patient instructions): Heart Failure (ER), Low-Sodium Diet (ED) Additional Instructions: Please take your 40 mg of Lasix twice per day. Try a low sodium diet. Follow up with your doctor tomorrow at your appointment. If he developed worsening shortness of breath, fevers, or are sitting leg swelling return to the emergency room. Is patient prescribed a controlled substance at d/c from ED?: No Referrals: Mark Miranda MD [Primary Care Provider] - 1-2 days Time of Disposition: 12:50
[2020-12-24 09:56] LABS: Basophils % (A) 1 %; Eosinophils # (A) 0.1 k/uL (0-0.7); Eosinophils % (A) 1 %; HCT 36.7 % (39.0-53.0); HGB 12.5 gm/dL (13.0-17.5); Lymphocytes % (A) 11 %; MCHC 34.2 g/dL (31.0-37.0); MCV 84.9 fL (80.0-100.0); Mean Platelet Volume 7.2; Monocytes # (A) 0.4 k/uL (0-1.0); Monocytes % (A) 5 %; Neutrophils # (A) 7.2 k/uL (1.3-7.7); Neutrophils % (A) 82 %; Platelet Count 469 k/uL (150-450); RBC 4.32 m/uL (4.30-5.90); RDW 13.4 % (11.5-15.5); WBC 8.7 k/uL (3.8-10.6)
[2020-12-24 10:07] LABS: ALT 7 U/L (4-49); African American GFR (CKD) >90 (>60 ml/min/1.73 sqM); Albumin 3.9 g/dL (3.5-5.0); Anion Gap 9 mmol/L; Blood Urea Nitrogen 22 mg/dL (9-20); Calcium 8.9 mg/dL (8.4-10.2); Carbon Dioxide 26 mmol/L (22-30); Chloride 103 mmol/L (98-107); Glucose 240 mg/dL (74-99); INR 1.1 (<1.2); Non-African American GFR(CKD) >90 (>60 ml/min/1.73 sqM); Partial Thromboplastin Time 22.7 sec (22.0-30.0); Prothrombin Time 11.4 sec (9.0-12.0); Sodium 138 mmol/L (137-145); Total Bilirubin 0.9 mg/dL (0.2-1.3); Total Protein 6.3 g/dL (6.3-8.2)
[2020-12-24 10:15] LABS: AST 19 U/L (17-59); Alkaline Phosphatase 61 U/L (38-126); Magnesium 1.4 mg/dL (1.6-2.3); Potassium 4.8 mmol/L (3.5-5.1)
--- NOTE | 2020-12-24 10:41 | XR ---
EXAMINATION TYPE: XR chest 2V DATE OF EXAM: 12/24/2020 CLINICAL HISTORY: difficulty breathing. TECHNIQUE: Frontal and lateral view of the chest. COMPARISON: None FINDINGS: Elevation and eventration of the left hemidiaphragm. The cardiomediastinal silhouette is w ithin normal limits for size. Pulmonary vasculature is prominent centrally with somewhat pruned appea alvin with differential including pulmonary arterial hypertension. Mild scattered patchy airspace opa cities bilaterally. No pleural effusion. No pneumothorax seen. Median sternotomy changes. IMPRESSION: Mild scattered patchy airspace opacities bilaterally may represent infectious or inflammatory pneumon itis, including Covid 19.
[2020-12-24 13:21] VITALS: BP 132/76; PULSE 80; RESP 18
== END 2020-12-24 13:20 | disposition home or self-care (01) ==
LOC: EC 09:22 → SUPCPDRO 09:22 → EC 13:20
DX: I11.0 Hypertensive heart disease with heart failure (principal); I50.9 Heart failure, unspecified; E11.9 Type 2 diabetes mellitus without complications; E78.5 Hyperlipidemia, unspecified; K21.9 Gastro-esophageal reflux disease without esophagitis; G47.30 Sleep apnea, unspecified; F17.200 Nicotine dependence, unspecified, uncomplicated; Z86.718 Personal history of other venous thrombosis and embolism; Z20.822 Contact with and (suspected) exposure to COVID-19; Z79.82 Long term (current) use of aspirin; Z79.4 Long term (current) use of insulin; Z79.02 Long term (current) use of antithrombotics/antiplatelets
CPT/HCPCS: 36415; 83880; 80053; 83735; 84484; 85025; 85610; 85730; 87635; 71046; 99285; 96374; J1940; 93005

== ENCOUNTER 2021-03-17 21:04 | Inpatient (IN) | payer MEDICARE, OTHER ==
--- NOTE | 2021-03-17 21:52 | ED ---
Weakness HPI - General Chief complaint: Weakness Stated complaint: Weakness Time Seen by Provider: 03/17/21 21:13 Source: patient, EMS, RN notes reviewed, old records reviewed Mode of arrival: EMS Limitations: no limitations - History of Present Illness Initial comments: Patient is a 65-year-old male, with past history of heart failure, diabetes, hypertension, sleep male, presenting to the emergency Department as a transfer from [facility] secondary to acute renal failure. Patient presented to their hospital with concerns of weakness that's been progressive over the past 2 months. He has been reporting diarrhea for the past one month. States the weakness has been getting Helio worse, exam hard time even transferring physicians from a laying to standing position. He denies any focal weaknesses. States he has had decreased appetite, denies any nausea or vomiting, no pain today. Patient reports losing weight over the past few months as well. Denies any chest pain or shortness of breath. He denies any peripheral edema. Denies any recent fevers or chills. He states he was started on potassium supplement about one month ago. A few days has been so weak that he has not been taking his medications. His only been urinating about 3 times daily, however he states he does not take in a lot of fluids. He denies any dizziness or lightheaded at this time. Patient was found to have an elevated potassium and in acute renal failure so was transferred here for further treatment. Patient did receive fluid bolus, treatment for hypokalemia prior to arrival to the ER. Patient has no further complaints at this time. Patient's vital signs are stable upon arrival. - Related Data Home Medications Medication Instructions Recorded Confirmed Aspirin [Adult Low Dose Aspirin EC] 81 mg PO DAILY 02/13/17 03/17/21 metFORMIN HCL [Glucophage XR] 500 mg PO HS 02/13/17 03/17/21 metFORMIN HCL [Glucophage] 1,000 mg PO BID 02/13/17 03/17/21 Clopidogrel [Plavix] 75 mg PO DAILY 12/24/20 03/17/21 Furosemide [Lasix] 40 mg PO BID 12/24/20 03/17/21 Insulin Glargine,Hum.rec.anlog 50 unit SQ HS 12/24/20 03/17/21 [Lantus Solostar] Isosorbide Mononitrate ER [Imdur] 60 mg PO DAILY 12/24/20 03/17/21 Magnesium Oxide [Mag-Ox] 800 mg PO DAILY 12/24/20 03/17/21 Metoprolol Succinate [Toprol XL] 100 mg PO DAILY 12/24/20 03/17/21 Rosuvastatin [Crestor] 10 mg PO DAILY 12/24/20 03/17/21 Spironolactone [Aldactone] 50 mg PO DAILY 12/24/20 03/17/21 hydrALAZINE HCL 50 mg PO BID 12/24/20 03/17/21 Cyanocobalamin (Vitamin B-12) 1,000 mcg PO DAILY 03/17/21 03/17/21 [Vitamin B-12] Empagliflozin [Jardiance] 10 mg PO DAILY 03/17/21 03/17/21 Lansoprazole 15 mg PO DAILY 03/17/21 03/17/21 Potassium Chloride ER [K-Dur 20] 20 meq PO DAILY 03/17/21 03/17/21 Sacubitril/Valsartan [Entresto 24 1 tab PO BID 03/17/21 03/17/21 mg-26 mg Tablet] Spironolactone 50 mg PO DAILY 03/17/21 03/17/21 Thiamine HCl [Vitamin B-1] 250 mg PO DAILY 03/17/21 03/17/21 Allergies Allergy/AdvReac Type Severity Reaction Status Date / Time No Known Allergies Allergy Verified 03/17/21 22:57 Review of Systems ROS Statement: Those systems with pertinent positive or pertinent negative responses have been documented in the HPI. ROS Other: All systems not noted in ROS Statement are negative. Past Medical History Past Medical History: Cancer, Heart Failure, Diabetes Mellitus, Deep Vein Thrombosis (DVT), GERD/Reflux, Hyperlipidemia, Hypertension, Prostate Disorder, Sleep Apnea/CPAP/BIPAP Additional Past Medical History / Comment(s): varicose veins, sleep apnea hx - corrected by surgery, hx prostate cancer History of Any Multi-Drug Resistant Organisms: None Reported Past Surgical History: Orthopedic Surgery, Prostate Surgery, Tonsillectomy Additional Past Surgical History / Comment(s): surgery for sleep apnea, left hand carpal tunnel Past Anesthesia/Blood Transfusion Reactions: No Reported Reaction Past Psychological History: No Psychological Hx Reported Smoking Status: Current every day smoker Past Alcohol Use History: Occasional Past Drug Use History: None Reported - Past Family History Mother Family Medical History: No Reported History General Exam - General Exam Comments Initial Comments: GENERAL: Patient is well-developed and well-nourished. Patient is nontoxic and in no acute distress. HEAD: Atraumatic, normocephalic. EYES: Pupils equal round and reactive to light, extraocular movements intact, sclera anicteric, conjunctiva are normal. Eyelids were unremarkable. ENT: TMs normal, nares patent, oropharynx clear without exudates. Dry mucous membranes. NECK: Normal range of motion, supple without lymphadenopathy or JVD. LUNGS: Unlabored respirations. Breath sounds clear to auscultation bilaterally and equ al. No wheezes rales or rhonchi. HEART: Regular rate and rhythm without murmurs, rubs or gallops. ABDOMEN: Soft, nontender, normoactive bowel sounds. No guarding, no rebound. No masses appreciated. : Deferred MUSCULOSKELETAL: Normal extremities with adequate strength and normal range of motion, no pitting or edema. No clubbing or cyanosis. NEUROLOGICAL: Patient is alert and oriented x 3. Motor and sensory are also intact. Cranial nerves II through XII grossly intact. Symmetrical smile. Normal speech. PSYCH: Normal mood, normal affect. SKIN: Warm, Dry, normal turgor, no rashes or lesions noted. Limitations: no limitations Course Vital Signs 03/17/21 21:06 Temperature 97.3 F L Pulse Rate 72 Respiratory 17 Rate Blood Pressure 118/70 O2 Sat by Pulse 96 Oximetry Medical Decision Making - Medical Decision Making H is a 65-year-old male with past history of heart failure, diabetes, hypertension, presenting as a transfer from [facility] for weakness and was found to be in acute renal failure, and hyperkalemia with potassium at 7.2. He was given a bolus of normal saline, hyperkalemia protocol medication including calcium gluconate, sodium bicarb, Humalog, albuterol prior to arrival. Patient's vital signs are stable upon arrival here in our ER. He has no pain anywhere. Upon review of his documentation from [place], rapid Covid is negative, hemoglobin is stable at 16.1, white count is 10.3, sodium is 131, potassium 7.2. CO2 was 9, glucose 209, BUN 98, creatinine 3.4. BNP is 2810, troponin was normal. Patient will be admitted for acute renal failure, hyperkalemia, metabolic acidosis. Patient accepted by Dr. Whyte. We will consult nephrology as well as GI. I did re-order a CMP/CBC, these are pending at this time. Case discussed with Dr. Buenrostro. - Lab Data Result diagrams: 03/17/21 21:59 Disposition Clinical Impression: Hyperkalemia, Acute renal failure, Metabolic acidosis Disposition: ADMITTED IP TO THIS [facility] Condition: Stable Decision Date: 03/17/21 Decision Time: 22:53
[2021-03-17 22:43] LABS: ALT <6 U/L (4-49); African American GFR (CKD) 23 (>60 ml/min/1.73 sqM); Albumin 2.8 g/dL (3.5-5.0); Anion Gap 10 mmol/L; Blood Urea Nitrogen 98 mg/dL (9-20); Calcium 8.7 mg/dL (8.4-10.2); Chloride 112 mmol/L (98-107); Glucose 186 mg/dL (74-99); Non-African American GFR(CKD) 20 (>60 ml/min/1.73 sqM); Sodium 131 mmol/L (137-145); Total Bilirubin 0.5 mg/dL (0.2-1.3); Total Protein 5.8 g/dL (6.3-8.2)
[2021-03-17] MEDS ORDERED: ACETAMINOPHEN TAB 325 MG TAB PO PRN (22:47)
[2021-03-17] MEDS ORDERED: NALOXONE 0.4 MG/ML 1 ML VIAL IV PRN (22:47)
[2021-03-17 23:00] LABS: AST 18 U/L (17-59); Alkaline Phosphatase 53 U/L (38-126); Carbon Dioxide 9 mmol/L (22-30); Potassium 6.9 mmol/L (3.5-5.1)
[2021-03-18] MEDS: SODIUM CHLORIDE 0.9% 1,000 ML IV SCH ×2 (00:26→09:12)
[2021-03-18 01:26] LABS: Anisocytosis Slight; Basophils % (A) 0 %; Eosinophils % (A) 0 %; HCT 46.3 % (39.0-53.0); HGB 14.7 gm/dL (13.0-17.5); Lymphocytes # (A) 1.1 k/uL (1.0-4.8); Lymphocytes % (A) 14 %; MCH 27.6 pg (25.0-35.0); MCHC 31.7 g/dL (31.0-37.0); Mean Platelet Volume 8.2; Monocytes # (A) 0.5 k/uL (0-1.0); Monocytes % (A) 7 %; Neutrophils # (A) 6.1 k/uL (1.3-7.7); Neutrophils % (A) 77 %; Platelet Count 308 k/uL (150-450); RBC 5.32 m/uL (4.30-5.90); RDW 16.3 % (11.5-15.5)
[2021-03-18] MEDS: ATORVASTATIN 20 MG TAB PO SCH (10:51)
[2021-03-18] MEDS: PANTOPRAZOLE 40 MG TABLET PO SCH (10:51)
[2021-03-18] MEDS: CYANOCOBALAMIN 500 MCG TAB PO SCH (10:51)
[2021-03-18 11:58] LABS: Calcium 8.5 mg/dL (8.4-10.2)
[2021-03-18 12:07] LABS: Potassium 6.5 mmol/L (3.5-5.1)
--- NOTE | 2021-03-18 12:20 | P.CONS ---
History of Present Illness - Reason for Consult Consult date: 03/18/21 Diarrhea Requesting physician: Viivane Shell - Chief Complaint Weakness - History of Present Illness This is 65-year-old white male who was transferred to our emergency department yesterday from [facility] with complaints of generalized weakness for the last 2 months duration He has a past medical history of heart failure, diabetes, and hypertension. The patient has reportedly been having diarrhea 2-3 times a day for the last 1 month duration. He states the bowel movements are like water.he denies seeking any medical treatment from his PCP or gastroenterology. He denies any blood in his stool, nausea, or vomiting. He does sometimes get some lower abdominal cramping. He states his last colonoscopy was 3-[address] Peters in [place]. States he had a cold guard last fall which was normal. He denies any recent traveling, denies any fever or chills. He does follow with cardiology and was recently started on interest O, spinal la ctone, and Lasix. States he has been on metformin for 5-6 years. He also complains of a decreased appetite and poor oral intake. on presentation the patient was noted to have a sodium of 131 potassium 6.9 chloride 112 carbon dioxide 9 BUN 98 creatinine 3.08 glucose 186 total bilirubin 0.5 AST 18 ALT less than 6 alkaline phosphatase 53 total protein 5.8 albumin 2.8. Today CBC WBC 8.0 hemoglobin 14.7 hematocrit 46 platelet count 308,000 Review of Systems REVIEW OF SYSTEMS: CARDIOPULMONARY: No chest pain or shortness of breath. Gastrointestinal: no abdominal pain. No nausea or vomiting. No coffee-ground emesis or hematemesis. No hematochezia or.melena. GENITOURINARY: No dysuria or hematuria. MUSCULOSKELETAL: Reports normal range of motion., Joint pain. SKIN: No rashes. No jaundice. ENDOCRINE: No chills, fevers. No excessive weight gain or loss. No polydipsia or polyuria. PSYCHIATRIC: Unremarkable. NEUROLOGY: No change in mental status. Denies dizziness, headache. ENT: Vision unremarkable. CONSTITUTIONAL: No recent weight loss. No fever,chills. Weakness, decreased appetite, poor oral intake. Past Medical History Past Medical History: Cancer, Heart Failure, Diabetes Mellitus, Deep Vein Thrombosis (DVT), GERD/Reflux, Hyperlipidemia, Hypertension, Prostate Disorder, Sleep Apnea/CPAP/BIPAP Additional Past Medical History / Comment(s): varicose veins, sleep apnea hx - corrected by surgery, hx prostate cancer History of Any Multi-Drug Resistant Organisms: None Reported Past Surgical History: Orthopedic Surgery, Prostate Surgery, Tonsillectomy Additional Past Surgical History / Comment(s): surgery for sleep apnea, left hand carpal tunnel Past Anesthesia/Blood Transfusion Reactions: No Reported Reaction Past Psychological History: No Psychological Hx Reported Smoking Status: Current every day smoker Past Alcohol Use History: Occasional Past Drug Use History: None Reported - Past Family History Mother Family Medical History: No Reported History Medications and Allergies Home Medications Medication Instructions Recorded Confirmed Type Aspirin [Adult Low Dose Aspirin EC] 81 mg PO DAILY 02/13/17 03/17/21 History metFORMIN HCL [Glucophage XR] 500 mg PO HS 02/13/17 03/17/21 History metFORMIN HCL [Glucophage] 1,000 mg PO BID 02/13/17 03/17/21 History Clopidogrel [Plavix] 75 mg PO DAILY 12/24/20 03/17/21 History Furosemide [Lasix] 40 mg PO BID 12/24/20 03/17/21 History Insulin Glargine,Hum.rec.anlog 50 unit SQ 12/24/20 03/17/21 History [Lantus Solostar] Isosorbide Mononitrate ER [Imdur] 60 mg PO DAILY 12/24/20 03/17/21 History Magnesium Oxide [Mag-Ox] 800 mg PO DAILY 12/24/20 03/17/21 History Metoprolol Succinate [Toprol XL] 100 mg PO DAILY 12/24/20 03/17/21 History Rosuvastatin [Crestor] 10 mg PO DAILY 12/24/20 03/17/21 History Spironolactone [Aldactone] 50 mg PO DAILY 12/24/20 03/17/21 History hydrALAZINE HCL 50 mg PO BID 12/24/20 03/17/21 History Cyanocobalamin (Vitamin B-12) 1,000 mcg PO DAILY 03/17/21 03/17/21 History [Vitamin B-12] Empagliflozin [Jardiance] 10 mg PO DAILY 03/17/21 03/17/21 History Lansoprazole 15 mg PO DAILY 03/17/21 03/17/21 History Potassium Chloride ER [K-Dur 20] 20 meq PO DAILY 03/17/21 03/17/21 History Sacubitril/Valsartan [Entresto 24 1 tab PO BID 03/17/21 03/17/21 History mg-26 mg Tablet] Spironolactone 50 mg PO DAILY 03/17/21 03/17/21 History Thiamine HCl [Vitamin B-1] 250 mg PO DAILY 03/17/21 03/17/21 History Allergies Allergy/AdvReac Type Severity Reaction Status Date / Time No Known Allergies Allergy Verified 03/17/21 22:57 Physical Exam Vitals: Vital Signs Temp Pulse Resp BP Pulse Ox 03/18/21 09:31 88 18 101/56 100 03/18/21 08:59 97.0 F L 72 18 87/59 98 03/18/21 02:30 62 18 93/58 91 L 03/17/21 21:06 97.3 F L 72 17 118/70 96 Intake and Output 03/17/21 03/18/21 03/18/21 22:59 06:59 14:59 Other: Weight 83.915 kg General appearance: The patient is alert, oriented, appears in no acute distress. HET: Head is normocephalic and atraumatic. Conjunctiva pink. Sclera anicteric. Neck: Supple without lymphadenopathy. Trachea midline. Heart: S1 S2. Regular rate and rhythm. Lungs: Clear to auscultation. Abdomen: Soft, right lower quadrant tenderness, nondistended with bowel sounds. No guarding or rigidity. Skin: No rashes. No jaundice. Extremities: Normal skin color and turgor. No pedal edema. Neurological: No focal deficits. Alert and oriented 3.. Results CBC & Chem 7: 03/18/21 01:04 03/17/21 21:59 Labs: Abnormal Lab Results - Last 24 Hours (Table) 03/17/21 03/18/21 Range/Units 21:59 01:04 RDW 16.3 H (11.5-15.5) % Sodium 131 L (137-145) mmol/L Potassium 6.9 H* (3.5-5.1) mmol/L Chloride 112 H (98-107) mmol/L Carbon Dioxide 9 L* (22-30) mmol/L BUN 98 H (9-20) mg/dL Creatinine 3.08 H (0.66-1.25) mg/dL Glucose 186 H (74-99) mg/dL Total Protein 5.8 L (6.3-8.2) g/dL Albumin 2.8 L (3.5-5.0) g/dL Assessment and Plan (1) Diarrhea Narrative/Plan: 65-year-old male who presented to [facility] with complaints of generalized weakness for the last 2 months duration. He also states with complaints of diarrhea 2-3 times a day which she states are watery, no melena or hematochezia. He denies any associated abdominal pain. He has stated that he has a decreased appetite and poor oral intake. He denies any recent traveling. He was started on new medications by cardiology including Entresto, sprinolactone, and Lasix.his last colonoscopy was 3-[address] Peters in [place]. He also states he had a cold guard last fall which she states was normal. He has not seen anybody for any complaints of diarrhea, he has not taken any antidiarrheals at home yet. States he just bought Imodium Current Visit: Yes Status: Acute Code(s): R19.7 - DIARRHEA, UNSPECIFIED SNOMED Code(s): 65445090 (2) Hyponatremia Current Visit: Yes Status: Acute Code(s): E87.1 - HYPO-OSMOLALITY AND HYPONATREMIA SNOMED Code(s): 58522913 (3) Acute renal failure Current Visit: Yes Status: Acute Code(s): N17.9 - ACUTE KIDNEY FAILURE, UNSPECIFIED SNOMED Code(s): 94022850 (4) Hyperkalemia Current Visit: Yes Status: Acute Code(s): E87.5 - HYPERKALEMIA SNOMED Code(s): 60642472 Plan: 1. Continue symptomatic and supportive care 2. Electrolyte replacement 3. Stool studies ordered 4. Diet as tolerated 5. Nephrology on consult 6. Further recommendations forthcoming based on stool studies Thank you for this consultation, we will continue to follow. Dr. Karthik Peters I agree with the dictator's note, documented as a scribe by Pallavi Trinidad.
[2021-03-18] MEDS ORDERED: CALCIUM GLUCONATE 1 GM in SODIUM CHLORIDE 0.9% 100 ML IVPB ONE (13:15)
[2021-03-18] MEDS: DEXTROSE 5% IN WATER 1,000 ML with SODIUM BICARB (1 MEQ/ML) 150 ML IV SCH ×2 (14:52→23:30)
--- NOTE | 2021-03-18 15:12 | US ---
EXAMINATION TYPE: US kidneys/renal and bladder DATE OF EXAM: 03/18/2021 COMPARISON: NONE CLINICAL HISTORY: RF. Renal failure EXAM MEASUREMENTS: Right Kidney: 12.7 x 6.0 x 6.2 cm Left Kidney: 12.9 x 6.3 x 5.9 cm Right Kidney: Appeared wnl Left Kidney: Appeared wnl Bladder: Pt voided just prior to exam Small amount of ascites inferior to right lobe of liver, and midline pelvis There is no evidence for hydronephrosis at this point in time. No nephrolithiasis is seen. No waldo s are identified. Kidneys show normal cortical medullary differentiation. Spleen is noted to be enlarged incidentally. IMPRESSION: Renal sizes as described. Borderline splenomegaly. There is a small amount of ascites present within the abdomen.
[2021-03-18 16:29] LABS: Glucose,Whole Blood 197 mg/dL (75-99)
--- NOTE | 2021-03-18 17:40 | P.HPIM ---
History of Present Illness H&P Date: 03/18/21 Chief Complaint: Weak and tired History of presenting complaint: This is a pleasant 65-year-old patient, was transferred here from [facility]. 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 Chronic stable medical conditions include congestive heart failure, diabetes, GERD, hypertension, hyperlipidemia, varicose vein, prostate cancer treated with surgery. Patient for about a month has been having diarrhea. About 4-5 times a day. Clear stools. No blood. No abdominal pain. No nausea vomiting. Very poor appetite. No fever no chills. Some shortness of breath. Patient has lost about 60 pounds in the last 2 months. Was unable to get about. Patient's currently in the ER accompanied by his 2 daughters. Patient is smoking up to about a week ago. Also drinking about 12 pack a day close to 9 months ago. At [facility] patient's BUN came back at 98 and creatinine was 3.4. Potassium was 7.2. Nephrology was consulted. Started on IV fluids. At [facility] patient did receive calcium gluconate, insulin, bicarb for the hyperkalemia Review of systems: GEN.: Tired, weight loss decreased appetite EYES: None HEENT: None NECK: None RESPIRATORY: Some shortness of breath CARDIOVASCULAR: None GASTROINTESTINAL: As above GENITOURINARY: None MUSCULOSKELETAL: Some joint pains LYMPHATICS: None HEMATOLOGICAL: None PSYCHIATRY: None NEUROLOGICAL: None Past medical history to include: CHF, diabetes, DVT, GERD, hypertension, hyperlipidemia, prostate cancer, obstructive sleep apnea treated with surgery varicose veins Social history: Lives alone. Smoked for about 40 years averaging about half a pack a day. Stopped about a week ago. Also drinking quite heavily about 12 packs a day for years stopping about 9 months ago. 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 Family history: Reviewed, noncontributory to presentation Physical examination: VITAL SIGNS: 97, 72, 18, 87 x 59, 98% room air GENERAL: BMI 25.1, laying in bed, rather tired appearing. EYES: Pupils equal. Conjunctiva normal. HEENT: External appearance of nose and ears normal, oral cavity grossly normal. NECK: JVD not raised; masses not palpable. HEART: First and second heart sounds are normal; no edema. LUNGS: Respiratory rate normal; decreased breath sounds. ABDOMEN: Soft, slightly distended nontender, liver spleen not palpable, no masses palpable. PSYCH: Alert and oriented x3; mood and affect tiredl. NEUROLOGICAL: Cranial nerves grossly intact; no facial asymmetry, power and sensation grossly intact. LYMPHATICS: No lymph nodes palpable in the axilla and neck INVESTIGATIONS, reviewed in the clinical context: WBC 8 hemoglobin 14.7 platelets 308 potassium 6.5 bicarb 10 BUN 89 creatinine 2.66 Renal ultrasound: Both kidneys within normal limits. Enlarged spleen. Upon presentation: Potassium 6.9 BUN 98 creatinine 3.08, blood glucose 241 Albumin 2.8 Lab work from [facility]: White count 10.3 hemoglobin 16.1, platelets 290 sodium 131 potassium 7.2 BUN 98 creatinine 3.4 Liver function test: Normal Pro-calcitonin 3.08. Troponin I less than 0.012 Influenza type A type B both negative EKG tracing personally reviewed by me-normal sinus rhythm, left bundle-branch block Assessment and plan: -Acute kidney injury likely a combination of ATN and prerenal component by poor oral intake and diarrhea IV fluids. Follow labs. Nephrology consult. Renal ultrasound is unremarkable. -Severe hyperkalemia secondary to acute kidney injury Renal diet. Calcium gluconate. Bicarbonate drip -Severe metabolic acidosis from renal injury. IV bicarbonate drip -Splenomegaly on ultrasound, likely from portal hypertension given history of alcoholism. full abdominal ultrasound for the assessment -Chronic nicotine dependence, cigarette smoker Nicotine patch -Hypotensive shock from fluid loss IV fluid resuscitation. Follow blood pressure closely -Essential hypertension currently low blood pressure Hold off antihypertensive -Hyperlipidemia Crestor 10 mg daily -Chronic congestive heart failure, EF not known Hold off diuretics for now. 2-D echocardiogram. Follow fluid status. Careful hydration. -Diabetes mellitus type 2, chronic insulin Resume Lantus at a 25 units daily at bedtime. Hold off Glucophage. Follow Accu-Cheks. Hold jardiance -GERD Continue PPI -Acute diarrhea for 1 month, with weight loss of 60 pounds in 2 months. Consi silver underlying malignancy. Patient will need endoscopy when more stable. Consult GI. -Acute medical debility, multifactorial Fall precautions. Activity as tolerated. Care was discussed at length with the patient and her daughter the bedside. IV fluids. Bicarbonate drip. Levemir 25 units daily at bedtime. Hold off oral hypoglycemic. Crestor. Oral off antihypertensives. Repeat labs in the morning. 2-D echocardiogram. Abdominal ultrasound Given the complexity and severity of patient's condition expect the patient to be in the hospital at least for 2 overnights Past Medical History Past Medical History: Cancer, Heart Failure, Diabetes Mellitus, Deep Vein Thrombosis (DVT), GERD/Reflux, Hyperlipidemia, Hypertension, Prostate Disorder, Sleep Apnea/CPAP/BIPAP Additional Past Medical History / Comment(s): varicose veins, sleep apnea hx - corrected by surgery, hx prostate cancer History of Any Multi-Drug Resistant Organisms: None Reported Past Surgical History: Orthopedic Surgery, Prostate Surgery, Tonsillectomy Additional Past Surgical History / Comment(s): surgery for sleep apnea, left hand carpal tunnel Past Anesthesia/Blood Transfusion Reactions: No Reported Reaction Past Psychological History: No Psychological Hx Reported Smoking Status: Current every day smoker Past Alcohol Use History: Occasional Past Drug Use History: None Reported - Past Family History Mother Family Medical History: No Reported History Medications and Allergies Home Medications Medication Instructions Recorded Confirmed Type Aspirin [Adult Low Dose Aspirin EC] 81 mg PO DAILY 02/13/17 03/17/21 History metFORMIN HCL [Glucophage XR] 500 mg PO HS 02/13/17 03/17/21 History metFORMIN HCL [Glucophage] 1,000 mg PO BID 02/13/17 03/17/21 History Clopidogrel [Plavix] 75 mg PO DAILY 12/24/20 03/17/21 History Furosemide [Lasix] 40 mg PO BID 12/24/20 03/17/21 History Insulin Glargine,Hum.rec.anlog 50 unit SQ 12/24/20 03/17/21 History [Lantus Solostar] Isosorbide Mononitrate ER [Imdur] 60 mg PO DAILY 12/24/20 03/17/21 History Magnesium Oxide [Mag-Ox] 800 mg PO DAILY 12/24/20 03/17/21 History Metoprolol Succinate [Toprol XL] 100 mg PO DAILY 12/24/20 03/17/21 History Rosuvastatin [Crestor] 10 mg PO DAILY 12/24/20 03/17/21 History Spironolactone [Aldactone] 50 mg PO DAILY 12/24/20 03/17/21 History hydrALAZINE HCL 50 mg PO BID 12/24/20 03/17/21 History Cyanocobalamin (Vitamin B-12) 1,000 mcg PO DAILY 03/17/21 03/17/21 History [Vitamin B-12] Empagliflozin [Jardiance] 10 mg PO DAILY 03/17/21 03/17/21 History Lansoprazole 15 mg PO DAILY 03/17/21 03/17/21 History Potassium Chloride ER [K-Dur 20] 20 meq PO DAILY 03/17/21 03/17/21 History Sacubitril/Valsartan [Entresto 24 1 tab PO BID 03/17/21 03/17/21 History mg-26 mg Tablet] Spironolactone 50 mg PO DAILY 03/17/21 03/17/21 History Thiamine HCl [Vitamin B-1] 250 mg PO DAILY 03/17/21 03/17/21 History Allergies Allergy/AdvReac Type Severity Reaction Status Date / Time No Known Allergies Allergy Verified 03/17/21 22:57 Physical Exam Vitals: Vital Signs Temp Pulse Resp BP Pulse Ox 03/18/21 09:31 88 18 101/56 100 03/18/21 08:59 97.0 F L 72 18 87/59 98 03/18/21 02:30 62 18 93/58 91 L 03/17/21 21:06 97.3 F L 72 17 118/70 96 Intake and Output 03/17/21 03/18/21 03/18/21 22:59 06:59 14:59 Other: Weight 83.915 kg Results CBC & Chem 7: 03/18/21 01:04 03/18/21 11:08 Labs: Abnormal Lab Results - Last 24 Hours (Table) 03/17/21 03/18/21 Range/Units 21:59 01:04 RDW 16.3 H (11.5-15.5) % Sodium 131 L (137-145) mmol/L Potassium 6.9 H* (3.5-5.1) mmol/L Chloride 112 H (98-107) mmol/L Carbon Dioxide 9 L* (22-30) mmol/L BUN 98 H (9-20) mg/dL Creatinine 3.08 H (0.66-1.25) mg/dL Glucose 186 H (74-99) mg/dL Total Protein 5.8 L (6.3-8.2) g/dL Albumin 2.8 L (3.5-5.0) g/dL
[2021-03-18] MEDS: INSULIN ASPART (NovoLOG) 100 UNIT/ML VIAL SQ SCH ×3 (18:52→22:29)
[2021-03-18] MEDS: ENOXAPARIN 40 MG/0.4 ML SYRINGE SQ SCH (19:07)
[2021-03-18] MEDS: NICOTINE 14MG/24HR PATCH TRANSDERM SCH (19:07)
[2021-03-18 20:03] LABS: Glucose,Whole Blood 221 mg/dL (75-99)
[2021-03-18 20:40] LABS: Glucose,Whole Blood 183 mg/dL (75-99)
[2021-03-18] MEDS ORDERED: INSULIN DETEMIR (LEVEMIR) 100 UNIT/ML SYR SQ SCH ×2 (21:00)
[2021-03-18 21:07] LABS: Hepatitis B Surface Antibody NonReactive (Nonreactive); Hepatitis B Surface Antigen Nonreactive (Nonreactive)
[2021-03-18 21:21] LABS: Calcium 8.7 mg/dL (8.4-10.2); Potassium 5.8 mmol/L (3.5-5.1)
[2021-03-18] MEDS ORDERED: INSULIN REGULAR 100 UNIT/ML VIAL (IV) IV ONE (22:25)
[2021-03-18] MEDS ORDERED: FUROSEMIDE 10 MG/ML 4 ML VIAL IV STA (22:26)
[2021-03-19 02:18] LABS: Appearance,Urine Clear (Clear); Bilirubin,Urine Negative (Negative); Blood,Urine Negative (Negative); Color,Urine Colorless; Glucose,Urine (UA) Negative (Negative); Ketones,Urine Negative (Negative); Leukocyte Esterase,Urine Negative (Negative); Nitrite,Urine Negative (Negative); Protein,Urine Negative (Negative); Specific Gravity,Urine 1.006 (1.001-1.035); Urobilinogen,Urine <2.0 mg/dL (<2.0)
[2021-03-19 06:04] LABS: Glucose,Whole Blood 115 mg/dL (75-99)
[2021-03-19] MEDS: INSULIN ASPART (NovoLOG) 100 UNIT/ML VIAL SQ SCH ×4 (06:35→21:30)
[2021-03-19] MEDS: PANTOPRAZOLE 40 MG TABLET PO SCH (06:35)
--- NOTE | 2021-03-19 08:33 | US ---
EXAMINATION TYPE: US abdomen complete DATE OF EXAM: 03/19/2021 COMPARISON: Renal ultrasound 03/18/2021 CLINICAL HISTORY: History of alcoholism. Renal failure. EXAM MEASUREMENTS: Liver Length: 16.0 cm Gallbladder Wall: 0.3 cm CBD: 0.3 cm Spleen: 14.6 cm Right Kidney: 12.9 x 6.0 x 5.8 cm Left Kidney: 12.0 x 5.2 x 5.8 cm Extensive overlying bowel gas limiting exam Pancreas: Obscured by bowel gas Liver: mild surrounding ascites, there is suggestion of coarse echotexture, possible nodular contour Gallbladder: wnl Evidence for sonographic Price's sign: CBD: wnl Spleen: enlarged Right Kidney: measures large Left Kidney: technologist measured kidney smaller than yesterday, this is believed to be angle depend ant Upper IVC: wnl Abd Aorta: Obscured by overlying bowel gas Exam is limited. There is minimal ascites. Cortical medullary differentiation maintained within the right kidney. IMPRESSION: Splenomegaly and minimal ascites, correlate for cirrhosis, hepatocellular disease. Exam i s somewhat limited.
[2021-03-19 08:50] LABS: ALT <6 U/L (4-49); AST 10 U/L (17-59); African American GFR (CKD) 36 (>60 ml/min/1.73 sqM); Albumin 2.7 g/dL (3.5-5.0); Alkaline Phosphatase 61 U/L (38-126); Anion Gap 8 mmol/L; Blood Urea Nitrogen 77 mg/dL (9-20); Calcium 8.5 mg/dL (8.4-10.2); Carbon Dioxide 13 mmol/L (22-30); Chloride 112 mmol/L (98-107); Glucose 131 mg/dL (74-99); Non-African American GFR(CKD) 31 (>60 ml/min/1.73 sqM); Potassium 5.3 mmol/L (3.5-5.1); Sodium 133 mmol/L (137-145); Total Bilirubin 0.6 mg/dL (0.2-1.3); Total Protein 5.4 g/dL (6.3-8.2)
[2021-03-19] MEDS: CYANOCOBALAMIN 500 MCG TAB PO SCH (09:01)
[2021-03-19] MEDS: ATORVASTATIN 20 MG TAB PO SCH (09:01)
[2021-03-19] MEDS: ENOXAPARIN 40 MG/0.4 ML SYRINGE SQ SCH (09:02)
[2021-03-19] MEDS: NICOTINE 14MG/24HR PATCH TRANSDERM SCH (09:02)
[2021-03-19] MEDS ORDERED: LOPERAMIDE 2 MG CAP PO PRN (09:57)
--- NOTE | 2021-03-19 11:33 | CONS ---
CONSULTATION REASON FOR CONSULT: Renal failure. HISTORY OF PRESENT ILLNESS: The patient is a 65-year-old male with a history of diabetes and no prior history of kidney disease. He was admitted to the hospital with complaints of significant muscle weakness, inability to ambulate. Patient also stated that he noticed decreased urine output over the last 1-2 days. He was found to have a potassium of 6.9, CO2 of 9 and serum creatinine of 3.0 on admission. Previous creatinine was 0.86 on 12/24/2020. The patient does have history of BPH and has had a TURP procedure previously. He follows with Urology out of town. No complaints of diarrhea or vomiting. No fever, chills, chest pains or shortness of breath. The patient received an IV fluid bolus yesterday in the ER and his creatinine is to 2.6 from 3.0. Blood pressure has been low with systolic 93 and 87 mmHg. At home, patient was maintained on Lasix, metformin and hydralazine which are all currently on hold. PAST MEDICAL HISTORY: Significant for diabetes, DVT, gastroesophageal reflux disease, hyperlipidemia, hypertension, BPH, obstructive sleep apnea, prostate cancer. PAST SURGICAL HISTORY: The prostate surgery details not clear. Most likely TURP procedure, tonsillectomy, left hand carpal tunnel surgery. SOCIAL HISTORY: Positive for smoking. No history of drug abuse or alcohol abuse. MEDICATIONS: At home prior to admission included: Spironolactone, Entresto, potassium, lansoprazole, Jardiance, hydralazine, Aldactone, Crestor, metoprolol, magnesium, Imdur, Lasix, Plavix, metformin, aspirin. REVIEW OF SYSTEMS: As per HPI. Other systems negative. ALLERGIES: None. EXAMINATION: Patient is comfortable, awake, alert, oriented x3, not in any acute distress. Blood pressure 101/56, heart rate 88 per minute. He is afebrile. Examination of the heart S1, S2. Examination of the lungs, bilateral breath sounds are heard. Abdomen is soft, nontender. Examination lower extremities shows no significant edema. 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 LAB: Show sodium of 130, potassium 6.5, chloride 112. CO2 is 10, BUN 89, creatinine 2.6, hemoglobin 14.7 g/dL. ASSESSMENT: 1. Acute kidney injury, mostly prerenal and a component of acute tubular necrosis secondary to hypotension. Rule out urine retention. Check ultrasound of the kidneys. Check bedside bladder scan and hold off on antihypertensive medications and diuretics for now and I will maintain patient on IV fluids. Check urinalysis as well. 2. Hyperkalemia associated with acute kidney injury, metabolic acidosis. Rule out urine retention. The patient was also maintained on spironolactone, potassium supplements, Entresto prior to admission which are currently on hold. 3. Non-gap metabolic acidosis associated with renal failure, rule out lactic acidosis associated with metformin. We will continue to hold off on metformin for now. Start bicarb drip. 4. Muscle weakness associated with hyperkalemia. PLAN: Start IV bicarb. Treat hyperkalemia with calcium gluconate for now. Check bladder scan to rule out urine retention. Check UA. Check ultrasound of the kidneys. Repeat potassium this evening. The patient may need to be started on insulin drip based on his repeat blood sugars. I expect them to be higher when the bicarb drip will be started and patient does need the bicarb drip and D5W since he is severely acidotic and needs at least 150 mEq of sodium bicarb, which cannot be placed in half-normal saline. Thank you for this consultation. We will continue to follow the patient with you during his hospitalization. MMODL / IJN: [id number] /
[2021-03-19 11:39] LABS: Glucose,Whole Blood 291 mg/dL (75-99)
--- NOTE | 2021-03-19 14:06 | P.PN ---
Subjective Progress Note Date: 03/19/21 Principal diagnosis: Diarrhea This is 65-year-old white male who was transferred to our emergency department yesterday from [facility] with complaints of generalized weakness for the last 2 months duration He has a past medical history of heart failure, diabetes, and hypertension. The patient has reportedly been having diarrhea 2-3 times a day for the last 1 month duration. He states the bowel movements are like water.he denies seeking any medical treatment from his PCP or gastroenterology. He denies any blood in his stool, nausea, or vomiting. He does sometimes get some lower abdominal cramping. He states his last colonoscopy was 3-[address] Peters in [place]. States he had a cologuard last fall which was normal. Patient also had admitted to a long history of alcohol abuse drinking 6-12 beers a day for at least 30-40 years duration. States he quit drinking one year ago. Had no elevation in his LFTs. Primary medicine ordered abdominal ultrasound that showed splenomegaly and minimal ascites, correlate for cirrhosis, hepatocellular disease. Exam is somewhat limited. Patient states he's feeling much better today. He states appetite has improved. He ate his entire dinner yesterday and breakfast today. He had one episode of diarrhea yesterday evening, none today. C. difficile toxin came back negative. He denies any abdominal pain, nausea, or vomiting. Electrolytes and kidney function are improving, nephrology is on consult. Objective - Vital Signs Vital signs: Vital Signs Temp 96.8 F L 03/19/21 08:52 Pulse 87 03/19/21 08:52 Resp 18 03/19/21 08:52 BP 95/54 03/19/21 08:52 Pulse Ox 100 03/19/21 08:52 Intake & Output 03/18/21 03/19/21 03/19/21 18:59 06:59 18:59 Intake Total 10 180 Output Total 900 400 Balance -890 -220 Weight 85.6 kg Intake: IV 10 Invasive Line 1 10 Oral 180 Output: Urine 900 400 Other: Voiding Method Toilet Toilet Urinal Urinal # Voids 2 1 # Bowel Movements 1 - Exam General appearance: The patient is alert, oriented, appears in no acute distress. HET: Head is normocephalic and atraumatic. Conjunctiva pink. Sclera anicteric. Neck: Supple without lymphadenopathy. Abdomen: Soft, nontender, nondistended with bowel sounds. No guarding or rigidity. Extremities: Normal skin color and turgor. No pedal edema Skin: No rashes, no jaundice Neurological: No focal deficits. Alert and oriented 3. - Labs CBC & Chem 7: 03/18/21 01:04 03/19/21 07:51 Labs: Abnormal Lab Results - Last 24 Hours (Table) 03/18/21 03/18/21 03/18/21 Range/Units 11:08 11:08 16:28 Sodium 130 L (137-145) mmol/L Potassium 6.5 H* (3.5-5.1) mmol/L Chloride 112 H (98-107) mmol/L Carbon Dioxide 10 L (22-30) mmol/L BUN 89 H (9-20) mg/dL Creatinine 2.66 H (0.66-1.25) mg/dL Glucose 241 H (74-99) mg/dL POC Glucose (mg/dL) 197 H (75-99) mg/dL AST (17-59) U/L Total Protein (6.3-8.2) g/dL Albumin (3.5-5.0) g/dL Hep Bs Antibody NonReactive A (Nonreactive) 03/18/21 03/18/21 03/18/21 Range/Units 19:59 20:38 21:05 Sodium 133 L (137-145) mmol/L Potassium 5.8 H (3.5-5.1) mmol/L Chloride 113 H (98-107) mmol/L Carbon Dioxide 9 L* (22-30) mmol/L BUN 83 H (9-20) mg/dL Creatinine 2.47 H (0.66-1.25) mg/dL Glucose 166 H (74-99) mg/dL POC Glucose (mg/dL) 221 H 183 H (75-99) mg/dL AST (17-59) U/L Total Protein (6.3-8.2) g/dL Albumin (3.5-5.0) g/dL Hep Bs Antibody (Nonreactive) 03/19/21 03/19/21 Range/Units 06:02 07:51 Sodium 133 L (137-145) mmol/L Potassium 5.3 H (3.5-5.1) mmol/L Chloride 112 H (98-107) mmol/L Carbon Dioxide 13 L (22-30) mmol/L BUN 77 H (9-20) mg/dL Creatinine 2.15 H (0.66-1.25) mg/dL Glucose 131 H (74-99) mg/dL POC Glucose (mg/dL) 115 H (75-99) mg/dL AST 10 L (17-59) U/L Total Protein 5.4 L (6.3-8.2) g/dL Albumin 2.7 L (3.5-5.0) g/dL Hep Bs Antibody (Nonreactive) Assessment and Plan (1) Diarrhea Narrative/Plan: 65-year-old male who presented to [facility] with complaints of generalized weakness for the last 2 months duration. He also states with complaints of diarrhea 2-3 times a day which she states are watery, no melena or hematochezia. He denies any associated abdominal pain. He has stated that he has a decreased appetite and poor oral intake. He denies any recent traveling. He was started on new medications by cardiology including Entresto, sprinolactone, and Lasix.his last colonoscopy was 3-[address] Peters in [place]. He also states he had a cold guard last fall which she states was normal. He has not seen anybody for any complaints of diarrhea, he has not taken any antidiarrheals at home yet. States he just bought Imodium. Diarrhea improved. C. difficile toxin negative. Other stool studies pending. Current Visit: Yes Status: Acute Code(s): R19.7 - DIARRHEA, UNSPECIFIED SNOMED Code(s): 21540166 (2) Hyponatremia Current Visit: Yes Status: Acute Code(s): E87.1 - HYPO-OSMOLALITY AND HYPONATREMIA SNOMED Code(s): 55844779 (3) Acute renal failure Current Visit: Yes Status: Acute Code(s): N17.9 - ACUTE KIDNEY FAILURE, UNSPECIFIED SNOMED Code(s): 23876096 (4) Hyperkalemia Current Visit: Yes Status: Acute Code(s): E87.5 - HYPERKALEMIA SNOMED Code(s): 90151685 (5) Alcoholic cirrhosis of liver Current Visit: Yes Status: Acute Code(s): K70.30 - ALCOHOLIC CIRRHOSIS OF LIVER WITHOUT ASCITES SNOMED Code(s): 246018024 Plan: 1. Continue symptomatic and supportive care 2. Electrolyte replacement 3. Stool studies ordered 4. Diet as tolerated 5. Nephrology on consult 6. Imodium as needed 7. No plans on endoscopic evaluation 8. Alcohol abstinence 9. Patient will need follow-up with gastroenterology in 4-6 months for new diagnosis of cirrhosis of the liver Thank you for this consultation, we will continue to follow. Dr. Karthik Peters I agree with the dictator's note, documented as a scribe by Pallavi Trinidad.
[2021-03-19 14:17] VITALS: BMI 25.6
[2021-03-19] MEDS: DEXTROSE 5% IN WATER 1,000 ML with SODIUM BICARB (1 MEQ/ML) 150 ML IV SCH (16:28)
[2021-03-19 16:32] LABS: Glucose,Whole Blood 179 mg/dL (75-99)
--- NOTE | 2021-03-19 17:28 | P.PN ---
Progress Note - Text Progress Note Date: 03/19/21 Chief Complaint: Weak and tired History of presenting complaint: This is a pleasant 65-year-old patient, was transferred here from [facility]. 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 Chronic stable medical conditions include congestive heart failure, diabetes, GERD, hypertension, hyperlipidemia, varicose vein, prostate cancer treated with surgery. Patient for about a month has been having diarrhea. About 4-5 times a day. Clear stools. No blood. No abdominal pain. No nausea vomiting. Very poor appetite. No fever no chills. Some shortness of breath. Patient has lost about 60 pounds in the last 2 months. Was unable to get about. Patient's currently in the ER accompanied by his 2 daughters. Patient is smoking up to about a week ago. Also drinking about 12 pack a day close to 9 months ago. At [facility] patient's BUN came back at 98 and creatinine was 3.4. Potassium was 7.2. Nephrology was consulted. Started on IV fluids. At [facility] patient did receive calcium gluconate, insulin, bicarb for the hyperkalemia Admitted with acute kidney injury likely, Tom ATN prerenal from poor oral intake and diarrhea, severe hyperkalemia, severe metabolic acidosis, hypotensive shock, acute medical debility. Patient was treated for hyperkalemia, IV fluids. March 19: Patient feeling a bit better today. Sitting up in a chair. Appetite is getting better. Getting IV fluids. 2 Daughters is at the bedside. Results of the abdominal ultrasound explained including possible cirrhosis. Likely from alcoholism. GI is on the case. Review of systems: Was done for constitutional, cardiovascular, GI, pulmonary. relevant finding as above Active Medications Acetaminophen (Acetaminophen Tab 325 Mg Tab) 650 mg PO Q6HR PRN PRN Reason: Mild Pain or Fever > 100.5 Last Admin: 03/19/21 12:59 Dose: 650 mg Documented by: Atorvastatin Calcium (Atorvastatin 20 Mg Tab) 20 mg PO DAILY [facility] Last Admin: 03/19/21 09:01 Dose: 20 mg Documented by: Cyanocobalamin (Cyanocobalamin 500 Mcg Tab) 1,000 mcg PO DAILY [facility] Last Admin: 03/19/21 09:01 Dose: 1,000 mcg Documented by: Enoxaparin Sodium (Enoxaparin 40 Mg/0.4 Ml Syringe) 40 mg SQ DAILY [facility] Last Admin: 03/19/21 09:02 Dose: 40 mg Documented by: Sodium Bicarbonate 150 ml/ (Dextrose/Water) 1,150 mls @ 70 mls/hr IV .[id number] [facility] Last Admin: 03/19/21 16:28 Dose: 70 mls/hr Documented by: Insulin Aspart (Insulin Aspart (Novolog) 100 Unit/Ml Vial) 0 unit SQ [facility]; Protocol Last Admin: 03/19/21 12:49 Dose: 7 unit Documented by: Insulin Detemir (Insulin Detemir (Levemir) 100 Unit/Ml Syr) 35 unit SQ [facility] Loperamide HCl (Loperamide 2 Mg Cap) 2 mg PO QID PRN PRN Reason: Diarrhea Naloxone HCl (Naloxone 0.4 Mg/Ml 1 Ml Vial) 0.2 mg IV Q2M PRN PRN Reason: Opioid Reversal Nicotine (Nicotine 14mg/24hr Patch) 1 patch TRANSDERM DAILY [facility] Last Admin: 03/19/21 09:02 Dose: Not Given Documented by: Pantoprazole Sodium (Pantoprazole 40 Mg Tablet) 40 mg PO DAILY@0730 [facility] Last Admin: 03/19/21 06:35 Dose: 40 mg Documented by: Past medical history to include: CHF, diabetes, DVT, GERD, hypertension, hyperlipidemia, prostate cancer, obstructive sleep apnea treated with surgery varicose veins Social history: Lives alone. Smoked for about 40 years averaging about half a pack a day. Stopped about a week ago. Also drinking quite heavily about 12 packs a day for years stopping about 9 months ago. 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 Family history: Reviewed, noncontributory to presentation Physical examination: VITAL SIGNS: 98, 95, 18, 103 with 54, 98% room air. Patient orthostatic this morning GENERAL: Sitting up in a chair, eating, looking better EYES: Pupils equal. Conjunctiva normal. NECK: JVD not raised; masses not palpable. HEART: First and second heart sounds are normal; no edema. LUNGS: Respiratory rate normal; decreased breath sounds. ABDOMEN: Soft, slightly distended nontender, liver spleen not palpable, no masses palpable. PSYCH: Alert and oriented x3; mood and affect tiredl. INVESTIGATIONS, reviewed in the clinical context: March 19: Sodium 133 potassium 5.3 bicarb 13 BUN 77 creatinine 2.15 albumin 2.7 Ultrasound abdomen complete: Liver with mild surrounding ascites, course" picture, possibly nodular contour. WBC 8 hemoglobin 14.7 platelets 308 potassium 6.5 bicarb 10 BUN 89 creatinine 2.66 Renal ultrasound: Both kidneys within normal limits. Enlarged spleen. Upon presentation: Potassium 6.9 BUN 98 creatinine 3.08, blood glucose 241 Albumin 2.8 Lab work from [facility]: White count 10.3 hemoglobin 16.1, platelets 290 sodium 131 potassium 7.2 BUN 98 creatinine 3.4 Liver function test: Normal Pro-calcitonin 3.08. Troponin I less than 0.012 Influenza type A type B both negative EKG tracing personally reviewed by me-normal sinus rhythm, left bundle-branch block Assessment and plan: -Acute kidney injury likely a combination of ATN and prerenal component by poor oral intake and diarrhea: Slow to respond IV fluids. Follow labs. Nephrology consult. Renal ultrasound is unremarkable. Initial creatinine was 3.08. Today 2.15 -Severe hyperkalemia secondary to acute kidney injury: Better Renal diet. Calcium gluconate. Bicarbonate drip -Severe metabolic acidosis from renal injury.: Slow to respond Continue IV bicarbonate drip -Likely alcoholic cirrhosis Follow with GI -Portal hypertension from alcoholic cirrhosis with splenomegaly and ascites -Chronic nicotine dependence, cigarette smoker Nicotine patch -Hypotensive shock from fluid loss IV fluid resuscitation. Follow blood pressure closely -Essential hypertension currently low blood pressure Hold off antihypertensive -Hyperlipidemia Crestor 10 mg daily -Chronic congestive heart failure, EF not known Hold off diuretics for now. 2-D echocardiogram-pending. Follow fluid status. Careful hydration. -Diabetes mellitus type 2, chronic insulin: Uncontrolled with hyperglycemia. Note patient is on a D5 drip because of sodium bicarbonate Increase Lantus at a 35 units daily at bedtime. Hold off Glucophage. Follow Accu-Cheks. Hold jardiance -GERD Continue PPI -Acute diarrhea for 1 month, with weight loss of 60 pounds in 2 months. Consider underlying malignancy. Patient will need endoscopy when more stable. Follow with GI -Acute medical debility, multifactorial Fall precautions. Activity as tolerated. Care was discussed with her 2 daughters at the bedside. Await GI input. Levemir increased to 35 minutes. 2-D echo results pending. Continue IV fluids. Bicarbonate drip. Follow labs.
--- NOTE | 2021-03-19 18:19 | PN ---
PROGRESS NOTE Patient is seen for followup for acute kidney injury, severe metabolic acidosis and hyperkalemia. Patient was started on bicarb drip. There is no evidence of urine retention noted. His blood sugars were elevated above 240, but currently improved. The patient was on spironolactone and potassium supplementation, which is now on hold. PHYSICAL EXAMINATION: On examination today, blood pressure was 103/54, heart rate 78 per minute. Patient is afebrile. Examination of the heart S1, S2. Examination of the lungs, bilateral breath sounds are heard. Abdomen: Soft, nontender. Exam of lower extremities shows no evidence of edema. [employer] exam grossly intact. LAB: Show sodium 133, potassium 5.3, chloride 112, CO2 is 13, BUN 77, creatinine 2.15. UA is completely benign. ASSESSMENT: 1. Acute kidney injury, nonoliguric mostly prerenal. UA is completely benign. No evidence of obstruction on ultrasound. Continue with IV fluids. No urine retention noted on bladder scans as well. 2. Hyperkalemia, associated with acute kidney injury, metabolic acidosis. No urine retention noted. Currently improved. Patient is off spironolactone, potassium supplements and Entresto. 3. Non gap metabolic acidosis associated with renal failure and possibly related to metformin as well. Lactic acid was ordered. It does not look like it was done. In any case, continue off metformin for now. PLAN: Continue the bicarb drip. Repeat labs in a.m. Control blood sugars. MMODL / IJN: [id number] /
[2021-03-19 19:41] LABS: Glucose,Whole Blood 298 mg/dL (75-99)
[2021-03-19] MEDS ORDERED: INSULIN DETEMIR (LEVEMIR) 100 UNIT/ML SYR SQ SCH (21:00)
[2021-03-19 21:18] VITALS: RESP 18
[2021-03-20 06:10] LABS: Glucose,Whole Blood 143 mg/dL (75-99)
[2021-03-20] MEDS: INSULIN ASPART (NovoLOG) 100 UNIT/ML VIAL SQ SCH ×3 (06:14→16:55)
[2021-03-20] MEDS: PANTOPRAZOLE 40 MG TABLET PO SCH (06:14)
[2021-03-20] MEDS: NICOTINE 14MG/24HR PATCH TRANSDERM SCH (08:15)
[2021-03-20] MEDS: ENOXAPARIN 40 MG/0.4 ML SYRINGE SQ SCH (08:20)
[2021-03-20] MEDS: CYANOCOBALAMIN 500 MCG TAB PO SCH (08:20)
[2021-03-20] MEDS: ATORVASTATIN 20 MG TAB PO SCH (08:20)
[2021-03-20 09:21] LABS: ALT <6 U/L (4-49); AST 12 U/L (17-59); African American GFR (CKD) 49 (>60 ml/min/1.73 sqM); Albumin 2.5 g/dL (3.5-5.0); Alkaline Phosphatase 56 U/L (38-126); Anion Gap 6 mmol/L; Blood Urea Nitrogen 60 mg/dL (9-20); Carbon Dioxide 17 mmol/L (22-30); Chloride 107 mmol/L (98-107); Glucose 184 mg/dL (74-99); Non-African American GFR(CKD) 43 (>60 ml/min/1.73 sqM); Potassium 4.8 mmol/L (3.5-5.1); Sodium 130 mmol/L (137-145); Total Bilirubin 0.7 mg/dL (0.2-1.3); Total Protein 5.2 g/dL (6.3-8.2)
[2021-03-20 11:56] LABS: Glucose,Whole Blood 242 mg/dL (75-99)
--- NOTE | 2021-03-20 12:22 | P.PN ---
Subjective Progress Note Date: 03/20/21 Principal diagnosis: Diarrhea This is 65-year-old white male who was transferred to our emergency department yesterday from [facility] with complaints of generalized weakness for the last 2 months duration He has a past medical history of heart failure, diabetes, and hypertension. The patient has reportedly been having diarrhea 2-3 times a day for the last 1 month duration. He states the bowel movements are like water.he denies seeking any medical treatment from his PCP or gastroenterology. He denies any blood in his stool, nausea, or vomiting. He does sometimes get some lower abdominal cramping. He states his last colonoscopy was 3-[address] [place]. States he had a cologuard last fall which was normal. Patient also had admitted to a long history of alcohol abuse drinking 6-12 beers a day for at least 30-40 years duration. States he quit drinking one year ago. Had no elevation in his LFTs. Primary medicine ordered abdominal ultrasound that showed splenomegaly and minimal ascites, correlate for cirrhosis, hepatocellular disease. Exam is somewhat limited. The patient states he continues to feel better. His appetite has been good and he is eating his full meals. He denies any further diarrhea. He denies abdomin al pain, nausea, or vomiting. He is been afebrile. Electrolytes and kidney function are improving. Stool cultures are pending. Objective - Vital Signs Vital signs: Vital Signs Temp 98.1 F 03/20/21 08:27 Pulse 98 03/20/21 08:27 Resp 18 03/20/21 08:27 BP 85/50 03/20/21 08:27 Pulse Ox 99 03/20/21 08:27 Intake & Output 03/19/21 03/20/21 03/20/21 18:59 06:59 18:59 Intake Total 462 62 8169 Output Total 401 Balance 149 06 3276 Weight 85.6 kg 87.1 kg Intake: IV 10 Invasive Line 1 10 Intake, IV Titration 840 Amount Dextrose 5% in Water 1, 840 000 ml @ 70 mls/hr IV . [id number] LESLIE with Sodium Bicarb (1 Meq/ml) 150 ml Rx#:[id number] Oral 540 180 Output: Urine 400 Urine/Stool Mix 1 Other: Voiding Method Toilet Toilet Toilet Urinal Urinal Urinal # Voids 1 2 - Exam General appearance: The patient is alert, oriented, appears in no acute distress. HET: Head is normocephalic and atraumatic. Conjunctiva pink. Sclera anicteric. Neck: Supple without lymphadenopathy. Abdomen: Soft, nontender, nondistended with bowel sounds. No guarding or rigidity. Extremities: Normal skin color and turgor. No pedal edema Skin: No rashes, no jaundice Neurological: No focal deficits. Alert and oriented 3. - Labs CBC & Chem 7: 03/18/21 01:04 03/20/21 08:06 Labs: Abnormal Lab Results - Last 24 Hours (Table) 03/19/21 03/19/21 03/19/21 Range/Units 11:36 16:29 19:39 POC Glucose (mg/dL) 291 H 179 H 298 H (75-99) mg/dL 03/20/21 Range/Units 06:08 POC Glucose (mg/dL) 143 H (75-99) mg/dL Microbiology - Last 24 Hours (Table) 03/18/21 20:27 Stool Culture - Preliminary Stool Assessment and Plan (1) Diarrhea Narrative/Plan: 65-year-old male who presented to [facility] with complaints of generalized weakness for the last 2 months duration. He also states with complaints of diarrhea 2-3 times a day which she states are watery, no melena or hematochezia. He denies any associated abdominal pain. He has stated that he has a decreased appetite and poor oral intake. He denies any recent traveling. He was started on new medications by cardiology including Entresto, sprinolactone, and Lasix.his last colonoscopy was 3-[address] [place]. He also states he had a cold guard last fall which she states was normal. He has not seen anybody for any complaints of diarrhea, he has not taken any antidiarrheals at home yet. States he just bought Imodium. Diarrhea improved. C. difficile toxin negative. Other stool studies pending. Current Visit: Yes Status: Acute Code(s): R19.7 - DIARRHEA, UNSPECIFIED SNOMED Code(s): 71143495 (2) Hyponatremia Current Visit: Yes Status: Acute Code(s): E87.1 - HYPO-OSMOLALITY AND HYPONATREMIA SNOMED Code(s): 24883436 (3) Acute renal failure Narrative/Plan: Nephrology is following patient closely Current Visit: Yes Status: Acute Code(s): N17.9 - ACUTE KIDNEY FAILURE, UNSPECIFIED SNOMED Code(s): 15547223 (4) Hyperkalemia Current Visit: Yes Status: Acute Code(s): E87.5 - HYPERKALEMIA SNOMED Code(s): 47967369 (5) Alcoholic cirrhosis of liver Current Visit: Yes Status: Acute Code(s): K70.30 - ALCOHOLIC CIRRHOSIS OF LIVER WITHOUT ASCITES SNOMED Code(s): 604785173 Plan: 1. Continue symptomatic and supportive care 2. Electrolyte replacement 3. Stool studies ordered 4. Diet as tolerated 5. Nephrology on consult 6. Imodium as needed 7. No plans on endoscopic evaluation 8. Alcohol abstinence 9. Patient will need follow-up with gastroenterology in 4-6 months for new diagnosis of cirrhosis of the liver Thank you for this consultation, we will sign off at this time. Dr. Karthik Peters I agree with the dictator's note, documented as a scribe by Pallavi Trinidad.
--- NOTE | 2021-03-20 14:17 | PN ---
PROGRESS NOTE Patient is seen for followup for acute kidney injury. Renal function has been improving with creatinine down to 1.6 from 3.0 on initial admission. Previous creatinine was 0.8 on 12/24/2020. The patient was also severely acidotic and he is currently maintained on a bicarb drip. Overall, he states he is feeling better. PHYSICAL EXAMINATION: On examination today, blood pressure was low 85/50. Previous blood pressure 122/66, heart rate 92 per minute. Patient is afebrile. Examination of the heart S1, S2. Examination of the lungs, bilateral breath sounds are heard. Abdomen is soft, nontender. Examination of lower extremities shows no significant edema. [employer] exam is grossly intact. LAB: Show sodium 130, potassium 4.8, chloride 107, CO2 17, BUN 60, creatinine 1.6. Lactic acid was 1.5. ASSESSMENT: 1. Acute kidney injury, prerenal and associated with low blood pressure, currently improving. 2. Hypotension. Check random cortisol level. Rule out renal insufficiency. 3. Metabolic acidosis, non-gap on initial admission, possibly related to metformin as well as from renal failure, now maintained on bicarb drip and patient remains off metformin. 4. Hyperkalemia associated with acute kidney injury, metabolic acidosis. No urine retention noted. Patient was on spironolactone and potassium supplements, which are currently on hold. 5. History of congestive heart failure, maintained on Entresto. I do not see an echocardiogram during this hospitalization. PLAN: Add oral sodium bicarb. Check random cortisol level. Encourage increased oral intake. The patient will need outpatient followup. MMODL / IJN: [id number] /
[2021-03-20] MEDS: DEXTROSE 5% IN WATER 1,000 ML with SODIUM BICARB (1 MEQ/ML) 150 ML IV SCH (14:39)
--- NOTE | 2021-03-20 15:53 | P.DS ---
Providers Date of admission: 03/17/21 21:38 Attending physician: Carlos Whyte Consults: 03/17/21 22:47 Consult Physician Urgent Consulting Provider: Papito Solomon Consult Reason/Comments: Acute renal failure, hyperkalemia Do you want consulting provider notified?: Yes 03/17/21 22:49 Consult Physician Urgent Consulting Provider: Sandra Peters Consult Reason/Comments: Diarrhea 1 month Do you want consulting provider notified?: Yes, Notify in am Primary care physician: [facility] Course: History of presenting complaint: This is a pleasant 65-year-old patient, was transferred here from [facility]. 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 Chronic stable medical conditions include congestive heart failure, diabetes, GERD, hypertension, hyperlipidemia, varicose vein, prostate cancer treated with surgery. Patient for about a month has been having diarrhea. About 4-5 times a day. Clear stools. No blood. No abdominal pain. No nausea vomiting. Very poor appetite. No fever no chills. Some shortness of breath. Patient has lost about 60 pounds in the last 2 months. Was unable to get about. Patient's currently in the ER accompanied by his 2 daughters. Patient is smoking up to about a week ago. Also drinking about 12 pack a day close to 9 months ago. At [facility] patient's BUN came back at 98 and creatinine was 3.4. Potassium was 7.2. Nephrology was consulted. Started on IV fluids. At [facility] patient did receive calcium gluconate, insulin, bicarb for the hyperkalemia Admitted with acute kidney injury likely, Tom ATN prerenal from poor oral intake and diarrhea, severe hyperkalemia, severe metabolic acidosis, hypotensive shock, acute medical debility. Patient was treated for hyperkalemia, IV fluids. March 19: Patient feeling a bit better today. Sitting up in a chair. Appetite is getting better. Getting IV fluids. 2 Daughters is at the bedside. Results of the abdominal ultrasound explained including possible cirrhosis. Likely from alcoholism. GI is on the case. 03/20/2021 Patient is resting in the bed today, he denies any chest pain, palpitations cough or shortness of breath. He reports that he is not having any more episodes of diarrhea this admission, there has been no blood in the stool. He denies any nausea vomiting or abdominal pain. Patient plan is to have a GI follow-up outpatient in 4-6 months. Creatinine today is 1.66 and BUN is 60. Potassium has trended down to 4.8. Sodium is 130 today. Patient's Aldactone, potassium supplement and Entresto have been on hold. Lactic acid is within normal limits at 1.5. Patient does have a history of EtOH, he drinks 6-12 beers a day for at least 30-40 years He quit over one year ago. Blood pressure is low 100s/50s, he remains afebrile. Nephrology has added sodium bicarbonate tablets today. Cortisol level was 16 today. ROS Constitutional: Denied any fatigue denied any fever. Cardio vascular: denied any chest pain, palpitations Gastrointestinal denied any nausea vomiting, reports history of liquid diarrhea none currently Pulmonary: Denied any shortness of breath cough Neurologic denied any new focal deficits All inpatient medications were reviewed and appropriate changes in these medications as dictated in the interval history and assessment and plan. PHYSICAL EXAMINATION: GENERAL: The patient is alert and oriented x3, not in any acute distress. Well developed, well nourished. HEENT: Pupils are round and equally reacting to light. EOMI. No scleral icterus. No conjunctival pallor. Normocephalic, atraumatic. No pharyngeal erythema. No thyromegaly. CARDIOVASCULAR: S1 and S2 present. No murmurs, rubs, or gallops. PULMONARY: Chest is clear to auscultation, no wheezing or crackles. ABDOMEN: Soft, nontender, nondistended, normoactive bowel sounds. No palpable organomegaly. MUSCULOSKELETAL: No joint swelling or deformity. EXTREMITIES: No cyanosis, clubbing, or pedal edema. NEUROLOGICAL: Gross neurological examination did not reveal any focal deficits. SKIN: No rashes. Assessment and plan: -Acute kidney injury likely a combination of ATN and prerenal component by poor oral intake and diarrhea: Slow to respond IV fluids, D5W with bicarb. Follow labs. Nephrology consult. Renal ultrasound is unremarkable. Initial creatinine was 3.08. Today 1.66 -Severe hyperkalemia secondary to acute kidney injury: Better Renal diet. Calcium gluconate. oral bicarbonate -Severe metabolic acidosis from renal injury.: Slow to respond Continue IV bicarbonate drip -Likely alcoholic cirrhosis Follow with GI outpatient in 4-6 weeks is no plans for a scope this admission, his most recent scope was 3-[address] Peters as well as abnormal Cologard last fall. -Portal hypertension from alcoholic cirrhosis with splenomegaly and ascites Follow-up GI outpatient -Chronic nicotine dependence, cigarette smoker Nicotine patch -Hypotensive shock from fluid loss IV fluid resuscitation. Follow blood pressure closely, hypotension today monitor closely -Essential hypertension currently low blood pressure Hold off antihypertensive -Hyperlipidemia Crestor 10 mg daily -Chronic congestive heart failure, EF not known Hold off diuretics for now. 2-D echocardiogram-pending. Follow fluid status. Careful hydration. -Diabetes mellitus type 2, chronic insulin: Uncontrolled with hyperglycemia. Note patient is on a D5 drip because of sodium bicarbonate Increase Lantus at a 35 units daily at bedtime. Hold off Glucophage. Follow Accu-Cheks. Hold jardiance -GERD Continue PPI -Acute diarrhea for 1 month, with weight loss of 60 pounds in 2 months. Consider underlying malignancy. Patient will need endoscopy when more stable. Follow with GI in 4-6 months -Acute medical debility, multifactorial Fall precautions. Activity as tolerated. Care was discussed with her 2 daughters at the bedside. Levemir increased to 35 minutes. 2-D echo results pending. Continue IV fluids. Bicarbonate drip. Follow labs. Nephrology added sodium bicarbonate tablets today. GI no surgical intervention follow-up in 4-[address] Peters. Nephrology cleared the patient for discharge to follow-up in the office. Patient will also follow-up with his PCP. GI prophylaxis: Protonix DVT prophylaxis: Early ambulation Full Code Patient Condition at Discharge: Stable Plan - Discharge Summary Discharge Rx Participant: No New Discharge Prescriptions: New Nicotine 14Mg/24Hr Patch [Habitrol] 1 patch TRANSDERM DAILY #14 patch Loperamide [Imodium] 2 mg PO QID PRN cap PRN Reason: Diarrhea Acetaminophen Tab [Tylenol] 650 mg PO Q6HR PRN tab PRN Reason: Mild Pain Or Fever > 100.5 Sodium Bicarbonate Tab 650 mg PO BID #60 tab Continue Aspirin [Adult Low Dose Aspirin EC] 81 mg PO DAILY metFORMIN HCL [Glucophage XR] 500 mg PO HS metFORMIN HCL [Glucophage] 1,000 mg PO BID Insulin Glargine,Hum.rec.anlog [Lantus Solostar Pen] 50 unit SQ HS Clopidogrel [Plavix] 75 mg PO DAILY Thiamine HCl [Vitamin B-1] 250 mg PO DAILY Cyanocobalamin (Vitamin B-12) [Vitamin B-12] 1,000 mcg PO DAILY Lansoprazole 15 mg PO DAILY Rosuvastatin [Crestor] 10 mg PO DAILY Magnesium Oxide [Mag-Ox] 800 mg PO DAILY Empagliflozin [Jardiance] 10 mg PO DAILY Discontinued Metoprolol Succinate [Toprol XL] 100 mg PO DAILY Isosorbide Mononitrate ER [Imdur] 60 mg PO DAILY Furosemide [Lasix] 40 mg PO BID Sacubitril/Valsartan [Entresto 24 mg-26 mg Tablet] 1 tab PO BID Spironolactone 50 mg PO DAILY Spironolactone [Aldactone] 50 mg PO DAILY hydrALAZINE HCL 50 mg PO BID Potassium Chloride ER [K-Dur 20] 20 meq PO DAILY Discharge Medication List Aspirin [Adult Low Dose Aspirin EC] 81 mg PO DAILY 02/13/17 [History] metFORMIN HCL [Glucophage XR] 500 mg PO HS 02/13/17 [History] metFORMIN HCL [Glucophage] 1,000 mg PO BID 02/13/17 [History] Clopidogrel [Plavix] 75 mg PO DAILY 12/24/20 [History] Insulin Glargine,Hum.rec.anlog [Lantus Solostar Pen] 50 unit SQ HS 12/24/20 [History] Magnesium Oxide [Mag-Ox] 800 mg PO DAILY 12/24/20 [History] Rosuvastatin [Crestor] 10 mg PO DAILY 12/24/20 [History] Cyanocobalamin (Vitamin B-12) [Vitamin B-12] 1,000 mcg PO DAILY 03/17/21 [History] Empagliflozin [Jardiance] 10 mg PO DAILY 03/17/21 [History] Lansoprazole 15 mg PO DAILY 03/17/21 [History] Thiamine HCl [Vitamin B-1] 250 mg PO DAILY 03/17/21 [History] Acetaminophen Tab [Tylenol] 650 mg PO Q6HR PRN tab 03/20/21 [Rx] Loperamide [Imodium] 2 mg PO QID PRN cap 03/20/21 [Rx] Nicotine 14Mg/24Hr Patch [Habitrol] 1 patch TRANSDERM DAILY #14 patch 03/20/21 [Rx] Sodium Bicarbonate Tab 650 mg PO BID #60 tab 03/20/21 [Rx] Follow up Appointment(s)/Referral(s): Perla Chen MD [STAFF PHYSICIAN] - 1 Week Mark Miranda MD [Primary Care Provider] - 1-2 days Sandra Peters MD [STAFF PHYSICIAN] - 6 Weeks (in 4-6 months) Ambulatory/Diagnostic Orders: Basic Metabolic Panel [LAB.AMB] Time Frame: 2 Days, Location: None Selected Complete Blood Count w/diff [LAB.AMB] Time Frame: 2 Days, Location: None Selected Patient Instructions/Handouts: Cirrhosis (DC), Acute Kidney Injury (DC), Metabolic Acidosis (GEN) Discharge Disposition: HOME SELF-CARE
[2021-03-20 16:00] VITALS: BP 101/61; PULSE 95; TEMP 98.1
[2021-03-20 16:18] LABS: Glucose,Whole Blood 189 mg/dL (75-99)
[2021-03-20] MEDS ORDERED: SODIUM BICARBONATE TAB 650 MG TAB PO SCH (21:00)
--- NOTE | 2021-03-21 12:44 | ECHOF ---
Referral Reason:History of CHF MEASUREMENTS -------- HEIGHT: 182.9 cm WEIGHT: 85.3 kg BP: 103/64 IVSd: 1.4 cm (0.6 - 1.1) LVIDd: 4.7 cm (3.9 - 5.3) LVPWd: 1.4 cm (0.6 - 1.1) IVSs: 1.9 cm LVIDs: 3.8 cm LVPWs: 1.8 cm LA Diam: 3.9 cm (2.7 - 3.8) LAESV Index (A-L): 24.98 ml/m Ao Diam: 3.4 cm (2.0 - 3.7) AV Cusp: 2.0 cm (1.5 - 2.6) MV EXCURSION: 15.618 mm (> 18.000) MV EF SLOPE: 42 mm/s (70 - 150) EPSS: 1.9 cm MV E Carlton: 0.78 m/s MV DecT: 186 ms MV A Carlton: 0.93 m/s MV E/A Ratio: 0.84 FINDINGS -------- Sinus rhythm. This was a technically difficult study with suboptimal views. The left ventricular size is normal. There is moderate concentric left ventricular hypertrophy. O verall left ventricular systolic function is mild-moderately impaired with, an EF between 40 - 45 %. Basal posterior LV wall motion is hypokinetic. Basal inferior LV wall motion is hypokinetic. The RV was not well visualized. Normal LA size by volume 22+/-6 ml/m2. The right atrium is normal in size. 5 ml of Lumason was utilized for enhancement of images. Interatrial and interventricular septum intact. The aortic valve is trileaflet, and appears structurally normal. No aortic stenosis or regurgitation. The mitral valve is normal. The tricuspid valve appears structurally normal. Unable to estimate RVSP due to inadequate TR jet s pectral doppler profile. The pulmonic valve was not well visualized. The aortic root size is normal. Normal inferior vena cava with normal inspiratory collapse consistent with estimated right atrial pre ssure of 5 mmHg. There is no pericardial effusion. CONCLUSIONS -------- 1. The left ventricular size is normal. 2. There is moderate concentric left ventricular hypertrophy. 3. Overall left ventricular systolic function is mild-moderately impaired with, an EF between 40 - 45 %. 4. Basal posterior LV wall motion is hypokinetic. 5. Basal inferior LV wall motion is hypokinetic. 6. 5 ml of Lumason was utilized for enhancement of images. 7. The aortic valve is trileaflet, and appears structurally normal. No aortic stenosis or regurgitati on. 8. There is no pericardial effusion. WELL REACTIVATOR OPERATOR: Bree Carl RDCS
--- NOTE | 2021-03-22 09:30 | CDI ---
Documentation Clarification Form Date: 03/22/21 From: Katheryn Badillo Admit Date: 03/17/2021 09:38:00 PM Patient Name: Stalin Paula Visit Number: [id number] Discharge Date: 03/20/2021 06:15:00 PM ATTENTION: The Clinical Documentation Specialists (CDI) and [facility] Coding Staff appreciate your assistance in clarifying documentation. Please respond to the clarification below the line at the bottom and electronically sign. The CDI & [facility] Coding staff will review the response and follow-up if needed. Please note: Queries are made part of the Legal Health Record. If you have any questions, please contact the author of this message via ITS. Dr. Carlos Whyte, Your patient has the documented diagnosis of unspecified CHF in ED Note, H&P, Dr Peters's consult, multiple PNs & DS. Additional information regarding the [type, acuity] of CHF is requested. History/Risk Factors: ATN, hypovolemic shock, portal HTN, alcoholic cirrhosis w ascites, cigarette smoker Clinical Indicators: Hypertensive heart disease with heart failure. Some shortness of breath on admission. No peripheral edema. 03/17 VS/Pulse OX: T 97.3, P 72, R 17, BP 118/70, P2 Sat 96/91 BNP: None available 03/19 Echocardiogram Results: Overall left ventricular systolic function is mild-moderately impaired with, an EF between 40 -45 %. Chest X Ray: None available Treatment: IV Lasix 40 mg on 03/18, takes Lasix 40 mg PO BID at home In your professional opinion, can you please clarify the [acuity and type] of CHF if known? [ ] Acute on Chronic Systolic Heart Failure (reduced EF) [ ] Other, please specify [ ] Unable to determine Chronic congestive heart failure from systolic dysfunction EF 40-45% MTDD
== END 2021-03-20 18:15 | disposition home or self-care (01) | DRG 682 ==
LOC: EC 21:04 → 3SCARD 21:38
PROVIDERS: ADMIT Hospitalist; ATTEND Hospitalist
DX: N17.0 Acute kidney failure with tubular necrosis (principal); R57.8 Other shock; E87.2 Acidosis; K76.6 Portal hypertension; I50.22 Chronic systolic (congestive) heart failure; E87.1 Hypo-osmolality and hyponatremia; K70.31 Alcoholic cirrhosis of liver with ascites; I11.0 Hypertensive heart disease with heart failure; E11.65 Type 2 diabetes mellitus with hyperglycemia; F10.20 Alcohol dependence, uncomplicated; Z79.4 Long term (current) use of insulin; Z20.822 Contact with and (suspected) exposure to COVID-19; E87.5 Hyperkalemia; K21.9 Gastro-esophageal reflux disease without esophagitis; E78.5 Hyperlipidemia, unspecified; I44.7 Left bundle-branch block, unspecified; R19.7 Diarrhea, unspecified; N40.0 Benign prostatic hyperplasia without lower urinary tract symptoms; E86.9 Volume depletion, unspecified; R16.1 Splenomegaly, not elsewhere classified; T50.906A Underdosing of unspecified drugs, medicaments and biological substances, initial encounter; Z91.128 Patient's intentional underdosing of medication regimen for other reason; I83.90 Asymptomatic varicose veins of unspecified lower extremity; F17.210 Nicotine dependence, cigarettes, uncomplicated; Z71.6 Tobacco abuse counseling; Z79.82 Long term (current) use of aspirin; Z79.02 Long term (current) use of antithrombotics/antiplatelets; Z79.84 Long term (current) use of oral hypoglycemic drugs; Z79.899 Other long term (current) drug therapy; Z60.2 Problems related to living alone; Z86.718 Personal history of other venous thrombosis and embolism; Z87.09 Personal history of other diseases of the respiratory system; Z90.89 Acquired absence of other organs; Z87.39 Personal history of other diseases of the musculoskeletal system and connective tissue; Z85.46 Personal history of malignant neoplasm of prostate; Z90.79 Acquired absence of other genital organ(s); Z98.890 Other specified postprocedural states
CPT/HCPCS: 36415; 76700; 76770; 80048; 80053; 81003; 82533; 83605; 85025; 86706; 87045; 87046; 87324; 87328; 87329; 87340; 93306; 99285

== ENCOUNTER 2021-04-25 14:51 | Inpatient (IN) | payer MEDICARE, OTHER ==
[2021-04-25 16:37] LABS: Basophils % (A) 0 %; Eosinophils % (A) 0 %; HCT 45.4 % (39.0-53.0); HGB 14.5 gm/dL (13.0-17.5); Lymphocytes % (A) 11 %; MCH 26.8 pg (25.0-35.0); MCV 83.8 fL (80.0-100.0); Mean Platelet Volume 7.5; Monocytes # (A) 0.5 k/uL (0-1.0); Monocytes % (A) 5 %; Neutrophils # (A) 7.5 k/uL (1.3-7.7); Neutrophils % (A) 82 %; Platelet Count 451 k/uL (150-450); RBC 5.41 m/uL (4.30-5.90); RDW 15.1 % (11.5-15.5); WBC 9.1 k/uL (3.8-10.6)
[2021-04-25 16:46] LABS: Albumin 2.9 g/dL (3.5-5.0); Calcium 8.5 mg/dL (8.4-10.2); Potassium 5.7 mmol/L (3.5-5.1); Total Bilirubin 0.5 mg/dL (0.2-1.3)
[2021-04-25 17:16] LABS: INR 1.1 (<1.2); Partial Thromboplastin Time 26.2 sec (22.0-30.0); Prothrombin Time 11.8 sec (9.0-12.0)
--- NOTE | 2021-04-25 17:31 | XR ---
EXAMINATION: XR chest 2V DATE AND TIME: 04/25/2021 5:10 PM CLINICAL INDICATION: PHH; difficulty breathing TECHNIQUE: PA and lateral COMPARISON: 12/24/2020 PA and lateral FINDINGS: The lungs continue to demonstrate multifocal ill-defined added opacities, though the abnormalities ar e approximately 40 % of what was seen on the 12/24/2020 radiographs. Left hemidiaphragm remains elevat ed, unchanged. The pleural spaces are negative. The cardiac silhouette is not enlarged. Sternal sutures and mediastinal clips redemonstrated. The rem ainder of the mediastinal silhouette is unremarkable. The skeletal structures and soft tissues are negative for acute findings. IMPRESSION: Lung parenchymal findings persist, though diminished since the prior study.
--- NOTE | 2021-04-25 18:47 | ED ---
General Adult HPI - General Source: patient Mode of arrival: ambulatory Limitations: no limitations <Alfredito Mccartney - Last Filed: 04/25/21 19:05> <Tania Pack - Last Filed: 05/02/21 01:23> - General Chief complaint: Shortness of Breath Stated complaint: CHF, Fluid Retention Time Seen by Provider: 04/25/21 18:08 - History of Present Illness Initial comments: 65-year-old male with a past medical history of heart failure, diabetes mellitus, hyperlipidemia, hypertension, cirrhosis presents to the emergency room for shortness of breath. This is been ongoing for the past 3 or 4 weeks. He states that his abdomen is very distended and filled with fluid. He states this is making him short of breath. He also states his ankles are a little bit swollen as well. Patient has no other complaints at this time including chest pain, abdominal pain, nausea or vomiting, headache, or visual changes. (Alfredito Meza) - Related Data Home Medications Medication Instructions Recorded Confirmed Aspirin [Adult Low Dose Aspirin EC] 81 mg PO DAILY 02/13/17 04/25/21 metFORMIN HCL [Glucophage] 1,000 mg PO BID 02/13/17 04/25/21 Clopidogrel [Plavix] 75 mg PO DAILY 12/24/20 04/25/21 Rosuvastatin [Crestor] 10 mg PO DAILY 12/24/20 04/25/21 Cyanocobalamin (Vitamin B-12) 1,000 mcg PO DAILY 03/17/21 04/25/21 [Vitamin B-12] Lansoprazole [Prevacid] 15 mg PO DAILY 04/25/21 04/25/21 Sodium Bicarbonate Tab 650 mg PO BID PRN 04/25/21 04/25/21 Previous Rx's Medication Instructions Recorded Acetaminophen Tab [Tylenol] 650 mg PO Q6HR PRN tab 03/20/21 Furosemide [Lasix] 40 mg PO BID@0900,1600 tab 05/01/21 Insulin Detemir (Levemir) [Levemir] 10 unit SQ HS ml 05/01/21 Magnesium Oxide [Mag-Ox] 400 mg PO BID tab 05/01/21 Spironolactone [Aldactone] 50 mg PO DAILY #30 tab 05/01/21 Thiamine [Vitamin B-1] 250 mg PO DAILY tab 05/01/21 Allergies Allergy/AdvReac Type Severity Reaction Status Date / Time No Known Allergies Allergy Verified 04/25/21 19:31 Review of Systems ROS Other: All systems not noted in ROS Statement are negative. <Alfredito Mccartney P - Last Filed: 04/25/21 19:05> ROS Other: All systems not noted in ROS Statement are negative. <Tania Pack - Last Filed: 05/02/21 01:23> ROS Statement: Those systems with pertinent positive or pertinent negative responses have been documented in the HPI. Past Medical History Past Medical History: Cancer, Heart Failure, Diabetes Mellitus, Deep Vein T hrombosis (DVT), GERD/Reflux, Hyperlipidemia, Hypertension, Prostate Disorder, Sleep Apnea/CPAP/BIPAP Additional Past Medical History / Comment(s): varicose veins, sleep apnea hx - corrected by surgery, hx prostate cancer History of Any Multi-Drug Resistant Organisms: None Reported Past Surgical History: Orthopedic Surgery, Prostate Surgery, Tonsillectomy Additional Past Surgical History / Comment(s): surgery for sleep apnea, left hand carpal tunnel Past Anesthesia/Blood Transfusion Reactions: No Reported Reaction Past Psychological History: No Psychological Hx Reported Smoking Status: Former smoker Past Alcohol Use History: Occasional Past Drug Use History: None Reported - Past Family History Mother Family Medical History: No Reported History <Alfredito Mccartney P - Last Filed: 04/25/21 19:05> General Exam Limitations: no limitations General appearance: alert, in no apparent distress Head exam: Present: atraumatic Eye exam: Present: normal appearance, PERRL, EOMI. Absent: scleral icterus, conjunctival injection ENT exam: Present: normal exam, mucous membranes moist Neck exam: Present: normal inspection, full ROM. Absent: tenderness Respiratory exam: Present: normal lung sounds bilaterally. Absent: respiratory distress, wheezes Cardiovascular Exam: Present: regular rate, normal rhythm, normal heart sounds GI/Abdominal exam: Present: soft, distended, normal bowel sounds. Absent: tenderness Neurological exam: Present: alert <Alfredito Mccartney P - Last Filed: 04/25/21 19:05> Course Vital Signs 04/25/21 04/26/21 04/26/21 16:07 00:01 04:40 Temperature 97.6 F Pulse Rate 82 93 93 Pulse Rate [ Pulse Oximetery ] Respiratory 20 19 17 Rate Blood Pressure 135/83 128/74 125/77 Blood Pressure [Right Arm] O2 Sat by Pulse 98 95 97 Oximetry 04/26/21 04/26/21 15:10 16:47 Temperature 98.3 F 97.4 F L Pulse Rate Pulse Rate [ 106 H 107 H Pulse Oximetery ] Respiratory 18 18 Rate Blood Pressure Blood Pressure 126/75 125/78 [Right Arm] O2 Sat by Pulse 94 L 97 Oximetry EKG Findings - EKG Comments: EKG Findings:: Normal sinus rhythm, ventricular rate 100, HI interval 144, QTc 466 <Alfredito Mccartney - Last Filed: 04/25/21 19:05> Medical Decision Making - Lab Data Result diagrams: 04/25/21 16:27 04/25/21 16:27 <Alfredito Mccartney - Last Filed: 04/25/21 19:05> - Lab Data Result diagrams: 04/25/21 16:27 04/30/21 06:41 <Tania Pack - Last Filed: 05/02/21 01:23> - Medical Decision Making Vitals are stable. Patient is well-appearing. No acute distress. CBC is unrem arkable. CMP does show hyperkalemia which patient does have a history of. Creatinine is 1.96 which is near similar to patient's last admission. Troponin negative. BNP 8700. Chest x-ray shows lung parenchymal findings that persist though diminished since the prior study. Patient does have significant ascites noted. At this time suspect patient's shortness of breath is mostly associated with his ascites. Patient has a history of alcoholic cirrhosis. He will be admitted for IR paracentesis. We will continue Lasix as well given some edema in his legs and shortness of breath. A d-dimer was obtained as ATP protocol from nursing staff. VQ scan will be ordered. Patient will be given a dose of Lovenox. (Alfredito Mccartney) I was available for consultation in the emergency department. The history and physical exam were done by the midlevel provider. I was consulted for this patients care. I reviewed the case with the midlevel provider and based on their presentation of the patient, I agree with the assessment, medical decision making and plan of care as documented. Chart was dictated using [employer] dictation software. Attempts were made to correct any dictation errors however some typographical errors may persist. (Tania Pack) - Lab Data Lab Results 04/25/21 04/25/21 04/25/21 Range/Units 16:27 16:27 16:27 WBC 9.1 (3.8-10.6) k/uL RBC 5.41 (4.30-5.90) m/uL Hgb 14.5 (13.0-17.5) gm/dL Hct 45.4 (39.0-53.0) % MCV 83.8 (80.0-100.0) fL MCH 26.8 (25.0-35.0) pg MCHC 32.0 (31.0-37.0) g/dL RDW 15.1 (11.5-15.5) % Plt Count 451 H (150-450) k/uL MPV 7.5 Neutrophils % 82 % Lymphocytes % 11 % Monocytes % 5 % Eosinophils % 0 % Basophils % 0 % Neutrophils # 7.5 (1.3-7.7) k/uL Lymphocytes # 1.0 (1.0-4.8) k/uL Monocytes # 0.5 (0-1.0) k/uL Eosinophils # 0.0 (0-0.7) k/uL Basophils # 0.0 (0-0.2) k/uL PT 11.8 (9.0-12.0) sec INR 1.1 (<1.2) APTT 26.2 (22.0-30.0) sec D-Dimer 4.21 H (<0.60) mg/L FEU Sodium 135 L (137-145) mmol/L Potassium 5.7 H (3.5-5.1) mmol/L Chloride 106 (98-107) mmol/L Carbon Dioxide 19 L (22-30) mmol/L Anion Gap 10 mmol/L BUN 49 H (9-20) mg/dL Creatinine 1.96 H (0.66-1.25) mg/dL Est GFR (CKD-EPI)AfAm 40 (>60 ml/min/1.73 sqM) Est GFR (CKD-EPI)NonAf 35 (>60 ml/min/1.73 sqM) Glucose 92 (74-99) mg/dL POC Glucose (mg/dL) (75-99) mg/dL POC Glu B And B Gang Worker ID Plasma Lactic Acid Oz (0.7-2.0) mmol/L Calcium 8.5 (8.4-10.2) mg/dL Total Bilirubin 0.5 (0.2-1.3) mg/dL AST 12 L (17-59) U/L ALT 6 (4-49) U/L Alkaline Phosphatase 74 (38-126) U/L Troponin I (0.000-0.034) ng/mL NT-Pro-B Natriuret Pep pg/mL Total Protein 6.0 L (6.3-8.2) g/dL Albumin 2.9 L (3.5-5.0) g/dL Coronavirus (PCR) (Not Detectd) 04/25/21 04/25/21 04/25/21 Range/Units 16:27 16:27 16:27 WBC (3.8-10.6) k/uL RBC (4.30-5.90) m/uL Hgb (13.0-17.5) gm/dL Hct (39.0-53.0) % MCV (80.0-100.0) fL MCH (25.0-35.0) pg MCHC (31.0-37.0) g/dL RDW (11.5-15.5) % Plt Count (150-450) k/uL MPV Neutrophils % % Lymphocytes % % Monocytes % % Eosinophils % % Basophils % % Neutrophils # (1.3-7.7) k/uL Lymphocytes # (1.0-4.8) k/uL Monocytes # (0-1.0) k/uL Eosinophils # (0-0.7) k/uL Basophils # (0-0.2) k/uL PT (9.0-12.0) sec INR (<1.2) APTT (22.0-30.0) sec D-Dimer (<0.60) mg/L FEU Sodium (137-145) mmol/L Potassium (3.5-5.1) mmol/L Chloride (98-107) mmol/L Carbon Dioxide (22-30) mmol/L Anion Gap mmol/L BUN (9-20) mg/dL Creatinine (0.66-1.25) mg/dL Est GFR (CKD-EPI)AfAm (>60 ml/min/1.73 sqM) Est GFR (CKD-EPI)NonAf (>60 ml/min/1.73 sqM) Glucose (74-99) mg/dL POC Glucose (mg/dL) (75-99) mg/dL POC Glu B And B Gang Worker ID Plasma Lactic Acid Zo 1.6 (0.7-2.0) mmol/L Calcium (8.4-10.2) mg/dL Total Bilirubin (0.2-1.3) mg/dL AST (17-59) U/L ALT (4-49) U/L Alkaline Phosphatase (38-126) U/L Troponin I <0.012 (0.000-0.034) ng/mL NT-Pro-B Natriuret Pep 8750 pg/mL Total Protein (6.3-8.2) g/dL Albumin (3.5-5.0) g/dL Coronavirus (PCR) (Not Detectd) 04/25/21 04/25/21 04/25/21 Range/Units 19:29 20:10 21:43 WBC (3.8-10.6) k/uL RBC (4.30-5.90) m/uL Hgb (13.0-17.5) gm/dL Hct (39.0-53.0) % MCV (80.0-100.0) fL MCH (25.0-35.0) pg MCHC (31.0-37.0) g/dL RDW (11.5-15.5) % Plt Count (150-450) k/uL MPV Neutrophils % % Lymphocytes % % Monocytes % % Eosinophils % % Basophils % % Neutrophils # (1.3-7.7) k/uL Lymphocytes # (1.0-4.8) k/uL Monocytes # (0-1.0) k/uL Eosinophils # (0-0.7) k/uL Basophils # (0-0.2) k/uL PT (9.0-12.0) sec INR (<1.2) APTT (22.0-30.0) sec D-Dimer (<0.60) mg/L FEU Sodium (137-145) mmol/L Potassium 5.4 H (3.5-5.1) mmol/L Chloride (98-107) mmol/L Carbon Dioxide (22-30) mmol/L Anion Gap mmol/L BUN (9-20) mg/dL Creatinine (0.66-1.25) mg/dL Est GFR (CKD-EPI)AfAm (>60 ml/min/1.73 sqM) Est GFR (CKD-EPI)NonAf (>60 ml/min/1.73 sqM) Glucose (74-99) mg/dL POC Glucose (mg/dL) 54 L 108 H (75-99) mg/dL POC Glu B And B Gang Worker LENORA Martinez, Reji Michelle, Reji Plasma Lactic Acid Oz (0.7-2.0) mmol/L Calcium (8.4-10.2) mg/dL Total Bilirubin (0.2-1.3) mg/dL AST (17-59) U/L ALT (4-49) U/L Alkaline Phosphatase (38-126) U/L Troponin I (0.000-0.034) ng/mL NT-Pro-B Natriuret Pep pg/mL Total Protein (6.3-8.2) g/dL Albumin (3.5-5.0) g/dL Coronavirus (PCR) (Not Detectd) 04/25/21 Range/Units 22:02 WBC (3.8-10.6) k/uL RBC (4.30-5.90) m/uL Hgb (13.0-17.5) gm/dL Hct (39.0-53.0) % MCV (80.0-100.0) fL MCH (25.0-35.0) pg MCHC (31.0-37.0) g/dL RDW (11.5-15.5) % Plt Count (150-450) k/uL MPV Neutrophils % % Lymphocytes % % Monocytes % % Eosinophils % % Basophils % % Neutrophils # (1.3-7.7) k/uL Lymphocytes # (1.0-4.8) k/uL Monocytes # (0-1.0) k/uL Eosinophils # (0-0.7) k/uL Basophils # (0-0.2) k/uL PT (9.0-12.0) sec INR (<1.2) APTT (22.0-30.0) sec D-Dimer (<0.60) mg/L FEU Sodium (137-145) mmol/L Potassium (3.5-5.1) mmol/L Chloride (98-107) mmol/L Carbon Dioxide (22-30) mmol/L Anion Gap mmol/L BUN (9-20) mg/dL Creatinine (0.66-1.25) mg/dL Est GFR (CKD-EPI)AfAm (>60 ml/min/1.73 sqM) Est GFR (CKD-EPI)NonAf (>60 ml/min/1.73 sqM) Glucose (74-99) mg/dL POC Glucose (mg/dL) (75-99) mg/dL POC Glu B And B Gang Worker ID Plasma Lactic Acid Oz (0.7-2.0) mmol/L Calcium (8.4-10.2) mg/dL Total Bilirubin (0.2-1.3) mg/dL AST (17-59) U/L ALT (4-49) U/L Alkaline Phosphatase (38-126) U/L Troponin I (0.000-0.034) ng/mL NT-Pro-B Natriuret Pep pg/mL Total Protein (6.3-8.2) g/dL Albumin (3.5-5.0) g/dL Coronavirus (PCR) Not Detected (Not Detectd) Disposition Is patient prescribed a controlled substance at d/c from ED?: No Time of Disposition: 19:08 <Alfredito Mccartney P - Last Filed: 04/25/21 19:05> <Tania Pack - Last Filed: 05/02/21 01:23> Clinical Impression: Ascites, Heart failure, Hyperkalemia, Shortness of breath, Elevated d-dimer Disposition: ADMITTED IP TO THIS HOSP Condition: Poor
[2021-04-25] MEDS ORDERED: ENOXAPARIN 100 MG/ML SYRINGE SQ STA (19:14)
[2021-04-25] MEDS ORDERED: INSULIN REGULAR 100 UNIT/ML VIAL (IV) IV ONE (19:15)
[2021-04-25] MEDS ORDERED: DEXTROSE 50% SYRINGE 50 ML IVP ONE (19:15)
[2021-04-25 20:20] LABS: Glucose,Whole Blood 54 mg/dL (75-99)
[2021-04-25 21:45] LABS: Glucose,Whole Blood 108 mg/dL (75-99)
[2021-04-25] MEDS: FUROSEMIDE 10 MG/ML 4 ML VIAL IV SCH (21:46)
[2021-04-26 00:51] LABS: Glucose,Whole Blood 90 mg/dL (75-99)
[2021-04-26] MEDS ORDERED: DEXTROSE 50% SYRINGE 50 ML IVP STA (03:15)
[2021-04-26] MEDS ORDERED: INSULIN REGULAR 100 UNIT/ML VIAL (IV) IV ONE (03:15)
--- NOTE | 2021-04-26 03:41 | P.HPIM ---
History of Present Illness H&P Date: 04/25/21 Chief Complaint: FER 65-year-old male with congestive heart failure left ventricular ejection fraction 40%, hypertension hyperlipidemia and diabetes mellitus history of prostate cancer Patient comes in due to increased difficulty in breathing over the past couple weeks with distended abdomen. He initially presented to the hospital and discharged early in March at that time he had chronic diarrhea and lost 60 pounds over 2 months found to be in HPI due to portal hypertension and heavy alcohol consumption. He was stabilized and discharged home and over the past couple weeks he claims that he has gained 25 pounds he noticed that his abdomen is increasingly getting distended resulting in difficulty in breathing for which she presented to the hospital for evaluation he denies any GI bleeding denies any fevers or chills denies any coughing denies any abdominal pain nausea vomiting or diarrhea denies any GI bleeding He claims that she quit alcohol about a year ago and quit smoking about 2 months ago He lives alone and it has been getting difficult for him to take care of himself he is getting increasingly short of breath feeling extremely weak and asking if he can go to rehab after discharge In the ED workup showed normal liver enzymes, elevated potassium. D-dimer was elevated however could not get a CTA of the chest due to acute kidney injury, patient was given one-time dose of 100 mg subcu Lovenox waiting to get VQ scan in the morning Review of Systems Pertinent positives as noted in HPI. All other systems were reviewed and are negative Past Medical History Past Medical History: Cancer, Heart Failure, Diabetes Mellitus, Deep Vein Thrombosis (DVT), GERD/Reflux, Hyperlipidemia, Hypertension, Prostate Disorder, Sleep Apnea/CPAP/BIPAP Additional Past Medical History / Comment(s): varicose veins, sleep apnea hx - corrected by surgery, hx prostate cancer History of Any Multi-Drug Resistant Organisms: None Reported Past Surgical History: Orthopedic Surgery, Prostate Surgery, Tonsillectomy Additional Past Surgical History / Comment(s): surgery for sleep apnea, left hand carpal tunnel Past Anesthesia/Blood Transfusion Reactions: No Reported Reaction Past Psychological History: No Psychological Hx Reported Smoking Status: Former smoker Past Alcohol Use History: Occasional Past Drug Use History: None Reported - Past Family History Mother Family Medical History: No Reported History Medications and Allergies Home Medications Medication Instructions Recorded Confirmed Type Aspirin [Adult Low Dose Aspirin EC] 81 mg PO DAILY 02/13/17 04/25/21 History metFORMIN HCL [Glucophage XR] 500 mg PO HS 02/13/17 04/25/21 History metFORMIN HCL [Glucophage] 1,000 mg PO BID 02/13/17 04/25/21 History Clopidogrel [Plavix] 75 mg PO DAILY 12/24/20 04/25/21 History Insulin Glargine,Hum.rec.anlog 50 unit SQ HS 12/24/20 04/25/21 History [Lantus Solostar Pen] Magnesium Oxide [Mag-Ox] 800 mg PO DAILY 12/24/20 04/25/21 History Rosuvastatin [Crestor] 10 mg PO DAILY 12/24/20 04/25/21 History Cyanocobalamin (Vitamin B-12) 1,000 mcg PO DAILY 03/17/21 04/25/21 History [Vitamin B-12] Empagliflozin [Jardiance] 10 mg PO DAILY 03/17/21 04/25/21 History Thiamine HCl [Vitamin B-1] 250 mg PO DAILY 03/17/21 04/25/21 History Acetaminophen Tab [Tylenol] 650 mg PO Q6HR PRN tab 03/20/21 04/25/21 Rx Loperamide [Imodium] 2 mg PO QID PRN cap 03/20/21 04/25/21 Rx Furosemide [Lasix] 40 mg PO DAILY 04/25/21 04/25/21 History Lansoprazole [Prevacid] 15 mg PO DAILY 04/25/21 04/25/21 History Sodium Bicarbonate Tab 650 mg PO BID PRN 04/25/21 04/25/21 History Allergies Allergy/AdvReac Type Severity Reaction Status Date / Time No Known Allergies Allergy Verified 04/25/21 19:31 Physical Exam Vitals: Vital Signs Temp Pulse Resp BP Pulse Ox 04/25/21 16:07 97.6 F 82 20 135/83 98 Intake and Output 04/25/21 04/25/21 04/25/21 06:59 14:59 22:59 Other: Weight 96.615 kg Constitutional: No acute distress, conversant, pleasant Eyes: Anicteric sclerae, moist conjunctiva, Pupils equal round reactive to light ENMT: NC/AT Oropharynx clear, no erythema, or exudates Neck: Supple, no masses, or JVD No carotid bruits No thyromegaly Lungs: Decreased breath sounds at lung bases bilaterally Clear to percussion Normal respiratory effort, no accessory muscle use Cardiovascular: Heart regular in rate and rhythm, No murmurs, gallops, or rubs +3 bilateral peripheral edema Abdominal: Distended abdomen, no guarding, rebound or rigidity Abdomen moving with respiration Normoactive bowel sounds No hepatomegaly, No splenomegaly No palpable mass No abdominal wall hernia noted Dependent edema on bilateral flanks Positive shifting dullness Skin: Normal temperature, tone, texture, turgor No induration No subcutaneous nodules No rash, lesions No ulcers Extremities: No digital cyanosis No clubbing Pedal pulses intact and symmetrical Radial pulses intact and symmetrical No calf tenderness Psychiatric: Alert and oriented to person, place and time Appropriate affect fair judgement Neuro Muscles Strength 3/5 in bilateral lower extremities, 4 out of 5 in bilateral upper extremities Sensation to light touch grossly present throughout Cranial nerves II-XII grossly intact Lymphatics: no palpable cervical or supraclavicular , or inguinal lymph nodes Results CBC & Chem 7: 04/25/21 16:27 04/26/21 01:35 Labs: Abnormal Lab Results - Last 24 Hours (Table) 04/25/21 04/25/21 04/25/21 Range/Units 16:27 16:27 16:27 Plt Count 451 H (150-450) k/uL D-Dimer 4.21 H (<0.60) mg/L FEU Sodium 135 L (137-145) mmol/L Potassium 5.7 H (3.5-5.1) mmol/L Carbon Dioxide 19 L (22-30) mmol/L BUN 49 H (9-20) mg/dL Creatinine 1.96 H (0.66-1.25) mg/dL POC Glucose (mg/dL) (75-99) mg/dL AST 12 L (17-59) U/L Total Protein 6.0 L (6.3-8.2) g/dL Albumin 2.9 L (3.5-5.0) g/dL 04/25/21 04/25/21 Range/Units 19:29 20:10 Plt Count (150-450) k/uL D-Dimer (<0.60) mg/L FEU Sodium (137-145) mmol/L Potassium 5.4 H (3.5-5.1) mmol/L Carbon Dioxide (22-30) mmol/L BUN (9-20) mg/dL Creatinine (0.66-1.25) mg/dL POC Glucose (mg/dL) 54 L (75-99) mg/dL AST (17-59) U/L Total Protein (6.3-8.2) g/dL Albumin (3.5-5.0) g/dL Assessment and Plan Assessment: Difficulty in breathing secondary to increased ascites Abdominal ascites due to history of portal hypertension liver cirrhosis secondary to history of alcohol abuse Acute kidney injury with hyperkalemia, concerning for hepatorenal syndrome Congestive heart failure with left ventricular ejection fraction of 4045 percent Elevated d-dimer Plan IV diuresis IR consulted for paracentesis Supportive care Insulin sliding scale for diabetes Potassium lowering cocktails and follow-up potassium closely patient given D50 and insulin IV For elevated d-dimer unable to obtain CTA of the chest at this time due to acute kidney injury, patient will be given full dose of Lovenox 100 mg and await VQ scan results Defer the morning team decision regarding continuing Lovenox twice a day or holding off pending further testing, possibly resume Lovenox after paracentesis Consider GI consultation Check liver Doppler ultrasound rule out portal vein thrombosis Continue aspirin and Plavix after paracentesis Monitor renal function Monitor liver function Insulin sliding scale Continue supportive care PT evaluation, patient lives alone increasing weakness unable take care of hims elf Patient is full code Anticipated length of stay more than 2 midnights Anticipated discharge pending PT eval
[2021-04-26 06:41] LABS: Glucose,Whole Blood 104 mg/dL (75-99)
--- NOTE | 2021-04-26 09:50 | NM ---
EXAMINATION TYPE: NM pul vent and perfuse DATE OF EXAM: 04/26/2021 COMPARISON: Chest x-ray 04/25/2021 HISTORY: Difficulty breathing TECHNIQUE: Utilizing inhalation of 65.9 mCi Tc 99m DTPA aerosol and intravenous injection of 5.2 mCi of Tc 99m MAA, ventilation and perfusion images are acquired post injection in multiple projections. FINDINGS: There is a matched defect involving the right lung base with triple match on chest x-ray. IMPRESSION: Intermediate probability for pulmonary embolism.
[2021-04-26] MEDS: FUROSEMIDE 10 MG/ML 4 ML VIAL IV SCH ×2 (10:19→20:49)
[2021-04-26] MEDS: THIAMINE 100 MG TAB PO SCH (10:19)
[2021-04-26] MEDS: PANTOPRAZOLE 40 MG TABLET PO SCH (10:19)
[2021-04-26] MEDS: ATORVASTATIN 20 MG TAB PO SCH (10:20)
[2021-04-26 11:46] LABS: BUN/Creat Ratio 22.89 Ratio (12.00-20.00); Globulin 2.3 g/dL (1.6-3.3)
[2021-04-26 11:47] LABS: ALT <5 U/L (10-49); AST 5 U/L (14-35); African American GFR (CKD) 40.2 (60.0-200.0); Albumin 2.6 g/dL (3.8-4.9); Albumin/Globulin Ratio 1.13 (1.60-3.17); Alkaline Phosphatase 65 U/L (41-126); Blood Urea Nitrogen 45.1 mg/dL (9.0-27.0); Calcium 7.7 mg/dL (8.7-10.3); Carbon Dioxide 19.9 mmol/L (21.6-31.8); Chloride 105 mmol/L (96-109); Glucose 52 mg/dL (70-110); Non-African American GFR(CKD) 34.6 (60.0-200.0); Potassium 5.1 mmol/L (3.5-5.5); Sodium 136 mmol/L (135-145); Total Protein 4.9 g/dL (6.2-8.2)
--- NOTE | 2021-04-26 13:06 | US ---
EXAMINATION TYPE: US abdomen limited DATE OF EXAM: 04/26/2021 COMPARISON: NONE CLINICAL HISTORY: ascites. Abdominal distention Fluid seen in all four quadrant, largest pocket of fluid seen in RLQ IMPRESSION: Fluid seen in all four quadrant, largest pocket of fluid seen in RLQ
--- NOTE | 2021-04-26 13:10 | US ---
EXAMINATION TYPE: US liver doppler DATE OF EXAM: 04/26/2021 COMPARISON: NONE CLINICAL HISTO RY: r/o portal vein thrombosis. Liver Cirrhosis EXAM MEASUREMENTS: Liver Length: 19.5 cm Gallbladder Wall: 0.3 cm CBD: 0.6 cm Right Kidney: 12.7 x 5.4 x 5.7 cm RUQ ABDOMINAL ULTRASOUND Pancreas: Obscured by bowel gas Liver: Increased attenuation Gallbladder: No stones seen, small amount of echoes along posterior wall Evidence for sonographic Price's sign: No CBD: limited Right Kidney: No hydronephrosis or masses seen Ascites noted? Yes LIVER DOPPLER ULTRASOUND Portal vein: Patent Main Portal Vein diameter: 13.6 mm Flow direction: Hepatopetal Color flow patency seen within the main portal vein: Yes Main portal vein shows a monophasic waveform: Yes Color flow patency seen within the right portal vein: Yes Right portal vein shows a monophasic waveform: Yes Color flow patency seen within the left portal vein: Yes Left portal vein shows a monophasic waveform: Yes Hepatic Artery: wnl IVC/Hepatic Veins: wnl Color flow patency seen within the IVC: No IVC shows a triphasic waveform: Yes Color flow patency seen within the right hepatic vein: Yes Right hepatic vein shows a triphasic waveform: Yes Color flow patency seen within the middle hepatic vein: Yes Middle hepatic vein shows a triphasic waveform: Yes Color flow patency seen within the left hepatic vein: Yes Left hepatic vein shows a triphasic waveform: Yes IMPRESSION: 1. Gallbladder sludge versus cholelithiasis. 2. Ascites.
--- NOTE | 2021-04-26 14:03 | P.PN ---
Subjective Patient was seen and evaluated by me in the ER today. He is complaining of significant abdominal distention. He is having difficulty breathing secondary to his large abdomen preventing him from taking deep breath. Objective - Vital Signs Vital signs: Vital Signs Temp 97.6 F 04/25/21 16:07 Pulse 93 04/26/21 04:40 Resp 17 04/26/21 04:40 BP 125/77 04/26/21 04:40 Pulse Ox 97 04/26/21 04:40 Intake & Output 04/25/21 04/26/21 04/26/21 18:59 06:59 18:59 Output Total 300 Balance -300 Weight 96.615 kg 96.615 kg Output: Urine 300 Uretheral (Blanco) 300 Other: # Bowel Movements 1 - Exam General: The patient is awake and alert, in no distress Eye: there is normal conjunctiva bilaterally. Neck: The neck is supple, there is no JVD. Cardiovascular: Normal S1-S2, no S3-S4, no murmurs. Respiratory: Lungs clear to auscultation bilaterally Gastrointestinal: Abdomen is significant abdominal distention with evidence of large ascites Musculoskeletal: There is +1 pedal edema. Neurological:. Speech is normal. Skin: Skin is warm and dry - Labs CBC & Chem 7: 04/25/21 16:27 04/26/21 06:50 Labs: Abnormal Lab Results - Last 24 Hours (Table) 04/25/21 04/25/21 04/25/21 Range/Units 16:27 16:27 16:27 Plt Count 451 H (150-450) k/uL D-Dimer 4.21 H (<0.60) mg/L FEU Sodium 135 L (137-145) mmol/L Potassium 5.7 H (3.5-5.1) mmol/L Carbon Dioxide 19 L (22-30) mmol/L BUN 49 H (9-20) mg/dL Creatinine 1.96 H (0.66-1.25) mg/dL Est GFR (CKD-EPI)AfAm (60.0-200.0) Est GFR (CKD-EPI)NonAf (60.0-200.0) BUN/Creatinine Ratio (12.00-20.00) Ratio Glucose (70-110) mg/dL POC Glucose (mg/dL) (75-99) mg/dL Calcium (8.7-10.3) mg/dL AST 12 L (17-59) U/L ALT (10-49) U/L Total Protein 6.0 L (6.3-8.2) g/dL Albumin 2.9 L (3.5-5.0) g/dL Albumin/Globulin Ratio (1.60-3.17) g/dL 04/25/21 04/25/21 04/25/21 Range/Units 19:29 20:10 21:43 Plt Count (150-450) k/uL D-Dimer (<0.60) mg/L FEU Sodium (137-145) mmol/L Potassium 5.4 H (3.5-5.1) mmol/L Carbon Dioxide (22-30) mmol/L BUN (9-20) mg/dL Creatinine (0.66-1.25) mg/dL Est GFR (CKD-EPI)AfAm (60.0-200.0) Est GFR (CKD-EPI)NonAf (60.0-200.0) BUN/Creatinine Ratio (12.00-20.00) Ratio Glucose (70-110) mg/dL POC Glucose (mg/dL) 54 L 108 H (75-99) mg/dL Calcium (8.7-10.3) mg/dL AST (17-59) U/L ALT (10-49) U/L Total Protein (6.3-8.2) g/dL Albumin (3.5-5.0) g/dL Albumin/Globulin Ratio (1.60-3.17) g/dL 04/26/21 04/26/21 04/26/21 Range/Units 01:35 06:39 06:50 Plt Count (150-450) k/uL D-Dimer (<0.60) mg/L FEU Sodium 133 L (137-145) mmol/L Potassium 6.0 H (3.5-5.1) mmol/L Carbon Dioxide 19.9 L (22-30) mmol/L BUN 45.1 H (9-20) mg/dL Creatinine 2.0 H (0.66-1.25) mg/dL Est GFR (CKD-EPI)AfAm 40.2 L (60.0-200.0) Est GFR (CKD-EPI)NonAf 34.6 L (60.0-200.0) BUN/Creatinine Ratio 22.89 H (12.00-20.00) Ratio Glucose 52 L (70-110) mg/dL POC Glucose (mg/dL) 104 H (75-99) mg/dL Calcium 7.7 L (8.7-10.3) mg/dL AST 5 L (17-59) U/L ALT <5 L (10-49) U/L Total Protein 4.9 L (6.3-8.2) g/dL Albumin 2.6 L (3.5-5.0) g/dL Albumin/Globulin Ratio 1.13 L (1.60-3.17) g/dL Assessment and Plan Assessment: This is a 65-year-old male with complex past medical history noted below presented to the emergency room with worsening abdominal distention causing difficulty breathing. Patient was evaluated in the ER and admitted to the hospital for further management of his medical problems noted below. 1. Large ascites, plan for paracentesis by IR requesting holding Plavix for 5 days. Last dose was on 04/25 in the morning. In the meantime we'll continue with IV Lasix 40 mg twice daily. Spironolactone 50 mg once a day added to his regimen. 2. Underlying liver disease with history of portal hypertension, suspected alcoholic cirrhosis given history of heavy alcohol abuse. Plan to follow-up with GI outpatient. 3. Acute systolic congestive heart failure exacerbation with ejection fraction of 40%. Continue diuresis as above. Repeat BNP in the next couple of days 4. Stage IIIB chronic kidney disease, creatinine appears to be around baseline of 2 5. Obstructive uropathy with 300 mL of urinary retention on presentation. Blanco catheter inserted 6. Type 2 diabetes, blood glucose within acceptable range. On those of Lantus is on hold. Hold oral agent as well. Continue sliding scale insulin. Check A1c. 7. Hyperkalemia, on presentation. Treated medically. 8. Chronic medical problems: Hypertension, hyperlipidemia, type 2 diabetes, history of prostate cancer
[2021-04-26 16:45] LABS: Glucose,Whole Blood 197 mg/dL (75-99)
[2021-04-26] MEDS: INSULIN ASPART (NovoLOG) 100 UNIT/ML VIAL SQ SCH ×2 (16:48→20:49)
[2021-04-26] MEDS: SPIRONOLACTONE 25 MG TAB PO SCH (16:48)
[2021-04-26 20:35] LABS: Glucose,Whole Blood 180 mg/dL (75-99)
[2021-04-27 06:58] LABS: Glucose,Whole Blood 148 mg/dL (75-99)
[2021-04-27] MEDS: INSULIN ASPART (NovoLOG) 100 UNIT/ML VIAL SQ SCH ×4 (08:04→21:42)
[2021-04-27] MEDS: PANTOPRAZOLE 40 MG TABLET PO SCH (08:05)
[2021-04-27] MEDS: ATORVASTATIN 20 MG TAB PO SCH (08:05)
[2021-04-27] MEDS: FUROSEMIDE 10 MG/ML 4 ML VIAL IV SCH ×2 (08:05→21:41)
[2021-04-27] MEDS: SPIRONOLACTONE 25 MG TAB PO SCH (08:05)
[2021-04-27] MEDS: THIAMINE 100 MG TAB PO SCH (08:05)
[2021-04-27] MEDS: ASPIRIN 81 MG PO SCH (08:05)
[2021-04-27] MEDS ORDERED: CLOPIDOGREL 75 MG TAB PO SCH (09:00)
[2021-04-27 09:54] LABS: African American GFR (CKD) 41 (>60 ml/min/1.73 sqM); Anion Gap 7 mmol/L; Blood Urea Nitrogen 49 mg/dL (9-20); Calcium 7.8 mg/dL (8.4-10.2); Carbon Dioxide 22 mmol/L (22-30); Chloride 102 mmol/L (98-107); Glucose 302 mg/dL (74-99); Magnesium 1.5 mg/dL (1.6-2.3); Non-African American GFR(CKD) 35 (>60 ml/min/1.73 sqM); Potassium 5.8 mmol/L (3.5-5.1); Sodium 131 mmol/L (137-145)
[2021-04-27] MEDS ORDERED: SODIUM POLYSTYRENE SULFONATE 15 GM/60 ML BOTTLE PO STA (12:33)
--- NOTE | 2021-04-27 12:33 | P.PN ---
Subjective Patient is doing fairly well today. No acute events overnight. Objective - Vital Signs Vital signs: Vital Signs Temp 97.6 F 04/27/21 07:31 Pulse 91 04/27/21 07:31 Resp 18 04/26/21 20:00 BP 120/78 04/27/21 07:31 Pulse Ox 95 04/27/21 07:31 Intake & Output 04/26/21 04/27/21 04/27/21 18:59 06:59 18:59 Output Total 700 1300 Balance -700 -1300 Weight 96.615 kg Output: Urine 700 1300 Uretheral (Blanco) 300 Other: Voiding Method Indwelling Catheter Indwelling Catheter # Voids 3 # Bowel Movements 1 - Exam General: The patient is awake and alert, in no distress Eye: there is normal conjunctiva bilaterally. Neck: The neck is supple, there is no JVD. Cardiovascular: Normal S1-S2, no S3-S4, no murmurs. Respiratory: Lungs clear to auscultation bilaterally Gastrointestinal: Abdomen is significant abdominal distention with evidence of large ascites Musculoskeletal: There is +1 pedal edema. Neurological:. Speech is normal. Skin: Skin is warm and dry - Labs CBC & Chem 7: 04/25/21 16:27 04/27/21 09:17 Labs: Abnormal Lab Results - Last 24 Hours (Table) 04/26/21 04/26/21 04/27/21 Range/Units 16:44 20:34 06:56 Sodium (137-145) mmol/L Potassium (3.5-5.1) mmol/L BUN (9-20) mg/dL Creatinine (0.66-1.25) mg/dL Glucose (74-99) mg/dL POC Glucose (mg/dL) 197 H 180 H 148 H (75-99) mg/dL Calcium (8.4-10.2) mg/dL Magnesium (1.6-2.3) mg/dL 04/27/21 Range/Units 09:17 Sodium 131 L (137-145) mmol/L Potassium 5.8 H (3.5-5.1) mmol/L BUN 49 H (9-20) mg/dL Creatinine 1.94 H (0.66-1.25) mg/dL Glucose 302 H (74-99) mg/dL POC Glucose (mg/dL) (75-99) mg/dL Calcium 7.8 L (8.4-10.2) mg/dL Magnesium 1.5 L (1.6-2.3) mg/dL Assessment and Plan Assessment: This is a 65-year-old male with complex past medical history noted below presented to the emergency room with worsening abdominal distention causing difficulty breathing. Patient was evaluated in the ER and admitted to the hospital for further management of his medical problems noted below. 1. Large ascites, plan for paracentesis by IR requesting holding Plavix for 5 days. Last dose was on 04/25 in the morning. In the meantime we'll continue with IV Lasix 40 mg twice daily. Spironolactone 50 mg once a day added to his regimen. 2. Underlying liver disease with history of portal hypertension, suspected alcoholic cirrhosis given history of heavy alcohol abuse. Plan to follow-up with GI outpatient. 3. Acute systolic congestive heart failure exacerbation with ejection fraction of 40%. Continue diuresis as above. Repeat BNP in the next couple of days 4. Stage IIIB chronic kidney disease, creatinine appears to be around baseline of 2 5. Obstructive uropathy with 300 mL of urinary retention on presentation. Blanco catheter inserted 6. Type 2 diabetes, blood glucose within acceptable range. Patient was on Lantus 50 units once a day at home. Recently lost a lot of weight. I adjusted his insulin regimen to Levemir 10 units at bedtime. Hold oral agent as well. Continue sliding scale insulin. A1c pending 7. Hyperkalemia, on presentation. Treated medically. 8. Hypomagnesemia, replacement ordered 9. Chronic medical problems: Hypertension, hyperlipidemia, type 2 diabetes, history of prostate cancer
[2021-04-27 13:20] VITALS: BMI 28.8
[2021-04-27] MEDS: MAGNESIUM SULFATE-D5W PMX 1 GM in DEXTROSE/WATER 1 100ML.BAG IVPB SCH ×2 (13:46→14:46)
[2021-04-27 16:44] LABS: Glucose,Whole Blood 213 mg/dL (75-99)
[2021-04-27 21:26] LABS: Glucose,Whole Blood 342 mg/dL (75-99)
[2021-04-27] MEDS: MAGNESIUM OXIDE 400 MG TAB PO SCH (21:41)
[2021-04-27] MEDS: INSULIN DETEMIR (LEVEMIR) 100 UNIT/ML SYR SQ SCH (21:42)
[2021-04-28] MEDS ORDERED: ACETAMINOPHEN TAB 325 MG TAB PO STA (05:39)
[2021-04-28 06:51] LABS: Glucose,Whole Blood 85 mg/dL (75-99)
[2021-04-28] MEDS: INSULIN ASPART (NovoLOG) 100 UNIT/ML VIAL SQ SCH ×4 (07:28→21:10)
[2021-04-28] MEDS: FUROSEMIDE 10 MG/ML 4 ML VIAL IV SCH ×2 (08:33→21:09)
[2021-04-28] MEDS: MAGNESIUM OXIDE 400 MG TAB PO SCH ×2 (08:33→21:09)
[2021-04-28] MEDS: PANTOPRAZOLE 40 MG TABLET PO SCH (08:33)
[2021-04-28] MEDS: ATORVASTATIN 20 MG TAB PO SCH (08:33)
[2021-04-28] MEDS: ASPIRIN 81 MG PO SCH (08:33)
[2021-04-28] MEDS: SPIRONOLACTONE 25 MG TAB PO SCH (08:33)
[2021-04-28] MEDS: THIAMINE 100 MG TAB PO SCH (08:33)
[2021-04-28 09:00] LABS: African American GFR (CKD) 45 (>60 ml/min/1.73 sqM); Anion Gap 7 mmol/L; Blood Urea Nitrogen 47 mg/dL (9-20); Calcium 7.8 mg/dL (8.4-10.2); Carbon Dioxide 22 mmol/L (22-30); Chloride 101 mmol/L (98-107); Glucose 164 mg/dL (74-99); Magnesium 1.8 mg/dL (1.6-2.3); Non-African American GFR(CKD) 39 (>60 ml/min/1.73 sqM); Potassium 4.7 mmol/L (3.5-5.1); Sodium 130 mmol/L (137-145)
[2021-04-28] MEDS ORDERED: MORPHINE SULFATE 2 MG/ML SYRINGE IVP STA (10:54)
[2021-04-28 11:51] LABS: Glucose,Whole Blood 153 mg/dL (75-99)
--- NOTE | 2021-04-28 15:06 | P.PN ---
Subjective Patient was complaining of right flank pain this morning. His abdomen is significantly distended. He is diuresing well. Objective - Vital Signs Vital signs: Vital Signs Temp 96.5 F L 04/28/21 14:14 Pulse 81 04/28/21 14:14 Resp 20 04/28/21 14:14 BP 137/88 04/28/21 14:14 Pulse Ox 96 04/28/21 14:14 Intake & Output 04/27/21 04/28/21 04/28/21 18:59 06:59 18:59 Output Total 1000 600 Balance -1000 -600 Weight 96.615 kg 98 kg Output: Urine 1000 600 Other: Voiding Method Indwelling Catheter Indwelling Catheter Indwelling Catheter # Bowel Movements 1 - Exam General: The patient is awake and alert, in no distress Eye: there is normal conjunctiva bilaterally. Neck: The neck is supple, there is no JVD. Cardiovascular: Normal S1-S2, no S3-S4, no murmurs. Respiratory: Lungs clear to auscultation bilaterally Gastrointestinal: Abdomen is significant abdominal distention with evidence of large ascites Musculoskeletal: There is +1 pedal edema. Neurological:. Speech is normal. Skin: Skin is warm and dry - Labs CBC & Chem 7: 04/25/21 16:27 04/28/21 08:25 Labs: Abnormal Lab Results - Last 24 Hours (Table) 04/27/21 04/27/21 04/27/21 Range/Units 09:17 16:42 21:24 Sodium (137-145) mmol/L BUN (9-20) mg/dL Creatinine (0.66-1.25) mg/dL Glucose (74-99) mg/dL POC Glucose (mg/dL) 213 H 342 H (75-99) mg/dL Hemoglobin A1c 7.2 H (4.0-6.0) % Calcium (8.4-10.2) mg/dL 04/28/21 04/28/21 Range/Units 08:25 11:50 Sodium 130 L (137-145) mmol/L BUN 47 H (9-20) mg/dL Creatinine 1.78 H (0.66-1.25) mg/dL Glucose 164 H (74-99) mg/dL POC Glucose (mg/dL) 153 H (75-99) mg/dL Hemoglobin A1c (4.0-6.0) % Calcium 7.8 L (8.4-10.2) mg/dL Assessment and Plan Assessment: This is a 65-year-old male with complex past medical history noted below presented to the emergency room with worsening abdominal distention causing difficulty breathing. Patient was evaluated in the ER and admitted to the hospital for further management of his medical problems noted below. 1. Large ascites, plan for paracentesis by IR requesting holding Plavix for 5 days. Last dose was on 04/25 in the morning. In the meantime we'll continue with IV Lasix 40 mg twice daily. Spironolactone 50 mg once a day added to his regimen. 2. Underlying liver disease with history of portal hypertension, suspected alcoholic cirrhosis given history of heavy alcohol abuse. Plan to follow-up with GI outpatient. 3. Acute systolic congestive heart failure exacerbation with ejection fraction of 40%. Continue diuresis as above. Repeat BNP in the next couple of days 4. Stage IIIB chronic kidney disease, creatinine appears to be around baseline of 2 5. Obstructive uropathy with 300 mL of urinary retention on presentation. Blanco catheter inserted 6. Type 2 diabetes, blood glucose within acceptable range. Patient was on Lantus 50 units once a day at home. Recently lost a lot of weight. I adjusted his insulin regimen to Levemir 10 units at bedtime. Hold oral agent as well. Continue sliding scale insulin. A1c 7.2 7. Hyperkalemia, on presentation. Treated medically. 8. Hypomagnesemia, replaced 9. Chronic medical problems: Hypertension, hyperlipidemia, type 2 diabetes, history of prostate cancer
[2021-04-28 17:00] LABS: Glucose,Whole Blood 224 mg/dL (75-99)
[2021-04-28 20:58] LABS: Glucose,Whole Blood 216 mg/dL (75-99)
[2021-04-28] MEDS: INSULIN DETEMIR (LEVEMIR) 100 UNIT/ML SYR SQ SCH (21:09)
[2021-04-29] MEDS: MORPHINE SULFATE 2 MG/ML SYRINGE IVP PRN ×5 (02:27→19:45)
[2021-04-29 07:17] LABS: Glucose,Whole Blood 92 mg/dL (75-99)
[2021-04-29] MEDS: INSULIN ASPART (NovoLOG) 100 UNIT/ML VIAL SQ SCH ×4 (07:33→21:39)
[2021-04-29] MEDS: SPIRONOLACTONE 25 MG TAB PO SCH (07:47)
[2021-04-29] MEDS: FUROSEMIDE 10 MG/ML 4 ML VIAL IV SCH (07:47)
[2021-04-29] MEDS: MAGNESIUM OXIDE 400 MG TAB PO SCH ×2 (07:47→19:37)
[2021-04-29] MEDS: THIAMINE 100 MG TAB PO SCH (07:48)
[2021-04-29] MEDS: ASPIRIN 81 MG PO SCH (07:48)
[2021-04-29] MEDS: ATORVASTATIN 20 MG TAB PO SCH (07:48)
[2021-04-29] MEDS: PANTOPRAZOLE 40 MG TABLET PO SCH (07:48)
[2021-04-29 11:35] LABS: Glucose,Whole Blood 128 mg/dL (75-99)
[2021-04-29] MEDS: ALBUMIN HUMAN 25% 50 ML in EMPTY BAG 1 BAG IVPB SCH ×4 (16:02→19:36)
[2021-04-29 16:06] LABS: Appearance,BF Clear; Color,BF Yellow; Nucleated Cells, Body Fluid 125 /uL; RBC, Body Fluid 50 /uL
[2021-04-29 16:26] LABS: Glucose,Whole Blood 202 mg/dL (75-99)
[2021-04-29 16:45] LABS: Mononuclear WBC,Body Fluid 64 %; Polynuclear WBC,Body Fluid 33 %; Total Cells Counted,Body Fluid 100
--- NOTE | 2021-04-29 16:49 | P.PN ---
Subjective Patient was seen and evaluated by me this morning. He is scheduled for ultrasound-guided paracentesis. No acute events overnight. Objective - Vital Signs Vital signs: Vital Signs Temp 98.1 F 04/29/21 14:30 Pulse 99 04/29/21 16:00 Resp 18 04/29/21 14:30 BP 108/71 04/29/21 16:00 Pulse Ox 91 L 04/29/21 16:00 Intake & Output 04/28/21 04/29/21 04/29/21 18:59 06:59 18:59 Intake Total 200 Output Total 450 350 Balance -450 -350 200 Weight 98.7 kg Intake: Oral 200 Output: Urine 450 350 Other: Voiding Method Indwelling Catheter Indwelling Catheter Indwelling Catheter - Exam General: The patient is awake and alert, in no distress Eye: there is normal conjunctiva bilaterally. Neck: The neck is supple, there is no JVD. Cardiovascular: Normal S1-S2, no S3-S4, no murmurs. Respiratory: Lungs clear to auscultation bilaterally Gastrointestinal: Abdomen is significant abdominal distention with evidence of large ascites Musculoskeletal: There is +1 pedal edema. Neurological:. Speech is normal. Skin: Skin is warm and dry - Labs CBC & Chem 7: 04/25/21 16:27 04/28/21 08:25 Labs: Abnormal Lab Results - Last 24 Hours (Table) 04/28/21 04/28/21 04/29/21 Range/Units 16:58 20:57 11:34 POC Glucose (mg/dL) 224 H 216 H 128 H (75-99) mg/dL 04/29/21 Range/Units 16:25 POC Glucose (mg/dL) 202 H (75-99) mg/dL Assessment and Plan Assessment: This is a 65-year-old male with complex past medical history noted below presented to the emergency room with worsening abdominal distention causing difficulty breathing. Patient was evaluated in the ER and admitted to the hospital for further management of his medical problems noted below. 1. Large ascites, plan for paracentesis by IR requesting holding Plavix for 5 days. Last dose was on 04/25 in the morning. In the meantime we'll continue with IV Lasix 40 mg twice daily. Spironolactone 50 mg once a day added to his regimen. 2. Underlying liver disease with history of portal hypertension, suspected alcoholic cirrhosis given history of heavy alcohol abuse. Plan to follow-up with GI outpatient. 3. Acute systolic congestive heart failure exacerbation with ejection fraction of 40%. Continue diuresis as above. Repeat BNP in the next couple of days 4. Stage IIIB chronic kidney disease, creatinine appears to be around baseline of 2 5. Obstructive uropathy with 300 mL of urinary retention on presentation. Blanco catheter inserted 6. Type 2 diabetes, blood glucose within acceptable range. Patient was on Lantus 50 units once a day at home. Recently lost a lot of weight. I adjusted his insulin regimen to Levemir 10 units at bedtime. Hold oral agent as well. Continue sliding scale insulin. A1c 7.2 7. Hyperkalemia, on presentation. Treated medically. 8. Hypomagnesemia, replaced 9. Chronic medical problems: Hypertension, hyperlipidemia, type 2 diabetes, history of prostate cancer
--- NOTE | 2021-04-29 20:21 | US ---
Ultrasound-guided paracentesis. DATE OF EXAM: 04/29/2021 CLINICAL HISTORY: Ascites The procedure was discussed with the patient. The risks, complications, benefits, and alternatives we re discussed and any questions were answered. Informed consent was obtained. The patient was placed s upine on the ultrasound table and prepped and draped in the usual sterile fashion. All elements of maximal barrier technique were utilized. Under ultrasound guidance, access into the right lower quadrant was obtained, via the paracentesis catheter system and direct ultrasound guidanc e. Approximately 4.6 liters of straw-colored fluid was removed. The patient was stable throughout the pr ocedure and remained stable upon discharge from Department of Radiology. IMPRESSION: Successful paracentesis under ultrasound guidance.
[2021-04-29 20:36] LABS: Glucose,Whole Blood 215 mg/dL (75-99)
[2021-04-29] MEDS: INSULIN DETEMIR (LEVEMIR) 100 UNIT/ML SYR SQ SCH (21:39)
[2021-04-30] MEDS: MORPHINE SULFATE 2 MG/ML SYRINGE IVP PRN ×4 (02:11→21:31)
[2021-04-30 06:57] LABS: Glucose,Whole Blood 108 mg/dL (75-99)
[2021-04-30] MEDS: INSULIN ASPART (NovoLOG) 100 UNIT/ML VIAL SQ SCH ×4 (08:16→21:32)
[2021-04-30] MEDS: SPIRONOLACTONE 25 MG TAB PO SCH (10:13)
[2021-04-30] MEDS: FUROSEMIDE 40 MG TAB PO SCH ×2 (10:15→15:10)
[2021-04-30] MEDS: ATORVASTATIN 20 MG TAB PO SCH (10:15)
[2021-04-30] MEDS: PANTOPRAZOLE 40 MG TABLET PO SCH (10:15)
[2021-04-30] MEDS: MAGNESIUM OXIDE 400 MG TAB PO SCH ×2 (10:16→20:13)
[2021-04-30] MEDS: ASPIRIN 81 MG PO SCH (10:17)
[2021-04-30] MEDS: THIAMINE 100 MG TAB PO SCH (10:17)
[2021-04-30 11:54] LABS: Glucose,Whole Blood 121 mg/dL (75-99)
[2021-04-30 12:16] LABS: Magnesium 1.9 mg/dL (1.5-2.4)
[2021-04-30 13:10] LABS: African American GFR (CKD) 37.2 (60.0-200.0); Anion Gap 12.6 mmol/L (4.00-12.00); BUN/Creat Ratio 24.62 Ratio (12.00-20.00); Blood Urea Nitrogen 51.7 mg/dL (9.0-27.0); Calcium 7.8 mg/dL (8.7-10.3); Carbon Dioxide 21.4 mmol/L (21.6-31.8); Non-African American GFR(CKD) 32.1 (60.0-200.0); Potassium 4.8 mmol/L (3.5-5.5)
[2021-04-30 17:09] LABS: Glucose,Whole Blood 189 mg/dL (75-99)
--- NOTE | 2021-04-30 18:59 | P.PN ---
Subjective Patient was seen and evaluated by me this morning. He is feeling a lot more comfortable today. No acute events overnight. Objective - Vital Signs Vital signs: Vital Signs Temp 97.4 F L 04/30/21 13:42 Pulse 100 04/30/21 13:42 Resp 20 04/30/21 13:42 BP 116/71 04/30/21 13:42 Pulse Ox 95 04/30/21 13:42 Intake & Output 04/29/21 04/30/21 04/30/21 18:59 06:59 18:59 Intake Total 600 200 Output Total 350 500 475 Balance 250 -300 -475 Weight 98.2 kg Intake: Oral 600 200 Output: Urine 350 500 475 Other: Voiding Method Indwelling Catheter Indwelling Catheter Indwelling Catheter - Exam General: The patient is awake and alert, in no distress Eye: there is normal conjunctiva bilaterally. Neck: The neck is supple, there is no JVD. Cardiovascular: Normal S1-S2, no S3-S4, no murmurs. Respiratory: Lungs clear to auscultation bilaterally Gastrointestinal: Abdomen is significant abdominal distention with evidence of large ascites Musculoskeletal: There is +1 pedal edema. Neurological:. Speech is normal. Skin: Skin is warm and dry - Labs CBC & Chem 7: 04/25/21 16:27 04/30/21 06:41 Labs: Abnormal Lab Results - Last 24 Hours (Table) 04/29/21 04/30/21 04/30/21 Range/Units 20:34 06:41 06:56 Sodium 133 L (135-145) mmol/L Carbon Dioxide 21.4 L (21.6-31.8) mmol/L Anion Gap 12.60 H (4.00-12.00) mmol/L BUN 51.7 H (9.0-27.0) mg/dL Creatinine 2.1 H (0.6-1.5) mg/dL Est GFR (CKD-EPI)AfAm 37.2 L (60.0-200.0) Est GFR (CKD-EPI)NonAf 32.1 L (60.0-200.0) BUN/Creatinine Ratio 24.62 H (12.00-20.00) Ratio Glucose 117 H (70-110) mg/dL POC Glucose (mg/dL) 215 H 108 H (75-99) mg/dL Calcium 7.8 L (8.7-10.3) mg/dL 04/30/21 04/30/21 Range/Units 11:52 17:07 Sodium (135-145) mmol/L Carbon Dioxide (21.6-31.8) mmol/L Anion Gap (4.00-12.00) mmol/L BUN (9.0-27.0) mg/dL Creatinine (0.6-1.5) mg/dL Est GFR (CKD-EPI)AfAm (60.0-200.0) Est GFR (CKD-EPI)NonAf (60.0-200.0) BUN/Creatinine Ratio (12.00-20.00) Ratio Glucose (70-110) mg/dL POC Glucose (mg/dL) 121 H 189 H (75-99) mg/dL Calcium (8.7-10.3) mg/dL Assessment and Plan Assessment: This is a 65-year-old male with complex past medical history noted below presented to the emergency room with worsening abdominal distention causing difficulty breathing. Patient was evaluated in the ER and admitted to the hospital for further management of his medical problems noted below. 1. Large ascites, status post paracentesis with approximately 4.6 L of fluid removed. Patient received IV albumin. Continue Lasix 40 mg twice daily. Spironolactone 50 mg once a day added to his regimen. 2. Underlying liver disease with history of portal hypertension, suspected alcoholic cirrhosis given history of heavy alcohol abuse. Plan to follow-up with GI outpatient. 3. Acute systolic congestive heart failure exacerbation with ejection fraction of 40%. Continue diuresis as above. Repeat BNP in the next couple of days 4. Stage IIIB chronic kidney disease, creatinine appears to be around baseline of 2 5. Obstructive uropathy with 300 mL of urinary retention on presentation. Blanco catheter inserted 6. Type 2 diabetes, blood glucose within acceptable range. Patient was on Lantus 50 units once a day at home. Recently lost a lot of weight. I adjusted his insulin regimen to Levemir 10 units at bedtime. Hold oral agent as well. Continue sliding scale insulin. A1c 7.2 7. Hyperkalemia, on presentation. Treated medically. 8. Hypomagnesemia, replaced 9. Chronic medical problems: Hypertension, hyperlipidemia, type 2 diabetes, history of prostate cancer Discontinue Blanco catheter and monitor postvoid residual Discharge planning to [facility] awaiting placement possibly tomorrow
[2021-04-30 20:08] VITALS: RESP 16
[2021-04-30 21:27] LABS: Glucose,Whole Blood 220 mg/dL (75-99)
[2021-04-30] MEDS: INSULIN DETEMIR (LEVEMIR) 100 UNIT/ML SYR SQ SCH (21:31)
[2021-05-01] MEDS: MORPHINE SULFATE 2 MG/ML SYRINGE IVP PRN ×2 (02:10→05:53)
[2021-05-01 07:24] LABS: Glucose,Whole Blood >600 mg/dL (75-99)
[2021-05-01 07:26] LABS: Glucose,Whole Blood >600 mg/dL (75-99)
[2021-05-01 07:36] LABS: Glucose,Whole Blood 144 mg/dL (75-99)
[2021-05-01] MEDS: INSULIN ASPART (NovoLOG) 100 UNIT/ML VIAL SQ SCH ×2 (08:05→12:56)
[2021-05-01 08:41] VITALS: BP 126/70; PULSE 95; TEMP 97.6
[2021-05-01] MEDS: PANTOPRAZOLE 40 MG TABLET PO SCH (09:59)
[2021-05-01] MEDS: FUROSEMIDE 40 MG TAB PO SCH (09:59)
[2021-05-01] MEDS: THIAMINE 100 MG TAB PO SCH (10:00)
[2021-05-01] MEDS: SPIRONOLACTONE 25 MG TAB PO SCH (10:00)
[2021-05-01] MEDS: ATORVASTATIN 20 MG TAB PO SCH (10:00)
[2021-05-01] MEDS: MAGNESIUM OXIDE 400 MG TAB PO SCH (10:00)
[2021-05-01] MEDS: ASPIRIN 81 MG PO SCH (10:00)
[2021-05-01] MEDS ORDERED: HYDROcodone/APAP 5-325MG 1 EACH TAB PO PRN (10:21)
--- NOTE | 2021-05-01 10:27 | P.DS ---
Providers Date of admission: 04/26/21 00:46 Expected date of discharge: 05/01/21 Attending physician: Les Fair MD Primary care physician: [facility] Course: This is a 65-year-old male with complex past medical history noted below presented to the emergency room with worsening abdominal distention causing difficulty breathing. Patient was evaluated in the ER and admitted to the hospital for further management of his medical problems noted below. 1. Large ascites, status post paracentesis with approximately 4.6 L of fluid removed. Patient received IV albumin. Continue Lasix 40 mg twice daily. Spironolactone 50 mg once a day added to his regimen. 2. Underlying liver disease with history of portal hypertension, suspected alcoholic cirrhosis given history of heavy alcohol abuse. Plan to follow-up with GI outpatient. 3. Acute systolic congestive heart failure exacerbation with ejection fraction of 40%. Continue diuresis as above. 4. Stage IIIB chronic kidney disease, creatinine appears to be around baseline of 2 5. Obstructive uropathy with 300 mL of urinary retention on presentation. Blanco catheter inserted on presentation. Plan for voiding trial prior to discharge 6. Type 2 diabetes, blood glucose within acceptable range. Patient was on Lantus 50 units once a day at home. Recently lost a lot of weight. I adjusted his insulin regimen to Levemir 10 units at bedtime. A1c 7.2 7. Hyperkalemia, on presentation. Treated medically. 8. Hypomagnesemia, replaced 9. Chronic medical problems: Hypertension, hyperlipidemia, type 2 diabetes, history of prostate cancer Patient was seen and evaluated by PT/OT. He will be discharged to [facility] facility for subacute rehab. Physical exam: General: The patient is awake and alert, in no distress Eye: there is normal conjunctiva bilaterally. Neck: The neck is supple, there is no JVD. Cardiovascular: Normal S1-S2, no S3-S4, no murmurs. Respiratory: Lungs clear to auscultation bilaterally Gastrointestinal: Abdomen is slightly distended but soft, nontender Musculoskeletal: There is no pedal edema. Neurological:. Speech is normal. Skin: Skin is warm and dry Patient Condition at Discharge: Poor Plan - Discharge Summary Discharge Rx Participant: No New Discharge Prescriptions: New Furosemide [Lasix] 40 mg PO BID@0900,1600 tab Insulin Detemir (Levemir) [Levemir] 10 unit SQ HS ml Magnesium Oxide [Mag-Ox] 400 mg PO BID tab Spironolactone [Aldactone] 50 mg PO DAILY #30 tab Thiamine [Vitamin B-1] 250 mg PO DAILY tab Continue Aspirin [Adult Low Dose Aspirin EC] 81 mg PO DAILY metFORMIN HCL [Glucophage] 1,000 mg PO BID Clopidogrel [Plavix] 75 mg PO DAILY Cyanocobalamin (Vitamin B-12) [Vitamin B-12] 1,000 mcg PO DAILY Acetaminophen Tab [Tylenol] 650 mg PO Q6HR PRN tab PRN Reason: Mild Pain Or Fever > 100.5 Sodium Bicarbonate Tab 650 mg PO BID PRN PRN Reason: Gi Upset Rosuvastatin [Crestor] 10 mg PO DAILY Lansoprazole [Prevacid] 15 mg PO DAILY Discontinued metFORMIN HCL [Glucophage XR] 500 mg PO HS Insulin Glargine,Hum.rec.anlog [Lantus Solostar Pen] 50 unit SQ HS Thiamine HCl [Vitamin B-1] 250 mg PO DAILY Loperamide [Imodium] 2 mg PO QID PRN cap PRN Reason: Diarrhea Furosemide [Lasix] 40 mg PO DAILY Magnesium Oxide [Mag-Ox] 800 mg PO DAILY Empagliflozin [Jardiance] 10 mg PO DAILY Discharge Medication List Aspirin [Adult Low Dose Aspirin EC] 81 mg PO DAILY 02/13/17 [History] metFORMIN HCL [Glucophage] 1,000 mg PO BID 02/13/17 [History] Clopidogrel [Plavix] 75 mg PO DAILY 12/24/20 [History] Rosuvastatin [Crestor] 10 mg PO DAILY 12/24/20 [History] Cyanocobalamin (Vitamin B-12) [Vitamin B-12] 1,000 mcg PO DAILY 03/17/21 [History] Acetaminophen Tab [Tylenol] 650 mg PO Q6HR PRN tab 03/20/21 [Rx] Lansoprazole [Prevacid] 15 mg PO DAILY 04/25/21 [History] Sodium Bicarbonate Tab 650 mg PO BID PRN 04/25/21 [History] Furosemide [Lasix] 40 mg PO BID@0900,1600 tab 05/01/21 [Rx] Insulin Detemir (Levemir) [Levemir] 10 unit SQ HS ml 05/01/21 [Rx] Magnesium Oxide [Mag-Ox] 400 mg PO BID tab 05/01/21 [Rx] Spironolactone [Aldactone] 50 mg PO DAILY #30 tab 05/01/21 [Rx] Thiamine [Vitamin B-1] 250 mg PO DAILY tab 05/01/21 [Rx] Follow up Appointment(s)/Referral(s): Mark Miranda MD [Primary Care Provider] - 1-2 days Activity/Diet/Wound Care/Special Instructions: [facility] Care: [phone] Discharge Disposition: TRANSFER TO SNF/ECF
[2021-05-01 11:52] LABS: Glucose,Whole Blood 224 mg/dL (75-99)
== END 2021-05-01 15:32 | DRG 432 ==
LOC: EC 14:51 → 4SSUR 04-26 00:46
PROVIDERS: ADMIT Internal Medicine; ATTEND Internal Medicine
PROC: 0W9G3ZZ Drainage of Peritoneal Cavity, Percutaneous Approach (ICD-10-PCS; principal; 2021-04-29)
DX: K70.31 Alcoholic cirrhosis of liver with ascites (principal); I50.23 Acute on chronic systolic (congestive) heart failure; I13.0 Hypertensive heart and chronic kidney disease with heart failure and stage 1 through stage 4 chronic kidney disease, or unspecified chronic kidney disease; N17.9 Acute kidney failure, unspecified; K76.6 Portal hypertension; F10.10 Alcohol abuse, uncomplicated; E87.5 Hyperkalemia; Z20.822 Contact with and (suspected) exposure to COVID-19; E11.22 Type 2 diabetes mellitus with diabetic chronic kidney disease; N18.32 Chronic kidney disease, stage 3b; R33.9 Retention of urine, unspecified; N13.9 Obstructive and reflux uropathy, unspecified; E83.42 Hypomagnesemia; E78.5 Hyperlipidemia, unspecified; Z85.46 Personal history of malignant neoplasm of prostate; Z79.02 Long term (current) use of antithrombotics/antiplatelets; Z79.4 Long term (current) use of insulin; Z79.82 Long term (current) use of aspirin; Z79.899 Other long term (current) drug therapy; Z87.891 Personal history of nicotine dependence
CPT/HCPCS: 36415; 49083; 71046; 76705; 78582; 80048; 80051; 80053; 83036; 83605; 83735; 83880; 84132; 84484; 85025; 85379; 85610; 85730; 87635; 89050; 93005; 93976; 99285

== ENCOUNTER 2021-05-21 17:45 | Inpatient (IN) | payer MEDICARE, OTHER ==
[2021-05-21] MEDS ORDERED: SODIUM CHLORIDE 0.9% 500 ML 500 ML IV STA (18:19)
[2021-05-21] MEDS ORDERED: CALCIUM GLUCONATE 2 GM in SODIUM CHLORIDE 0.9% 100 ML IVPB ONE (18:30)
[2021-05-21 18:45] LABS: Basophils % (A) 0 %; Eosinophils % (A) 0 %; HCT 51.1 % (39.0-53.0); HGB 15.8 gm/dL (13.0-17.5); Hypochromasia Slight; Lymphocytes % (A) 9 %; MCH 26.4 pg (25.0-35.0); MCV 85.2 fL (80.0-100.0); Mean Platelet Volume 8.9; Monocytes # (A) 0.7 k/uL (0-1.0); Monocytes % (A) 6 %; Neutrophils % (A) 85 %; Platelet Count 257 k/uL (150-450); RDW 15.7 % (11.5-15.5); WBC 11.8 k/uL (3.8-10.6)
[2021-05-21 18:58] LABS: Appearance,Urine Cloudy (Clear); Bacteria,Urine Few /hpf; Bilirubin,Urine Negative (Negative); Blood,Urine Moderate (Negative); Budding Yeast,Urine Occasional /hpf; Color,Urine Yellow; Glucose,Urine (UA) Negative (Negative); Hyaline Casts,Urine 134 /lpf (0-2); Ketones,Urine Negative (Negative); Leukocyte Esterase,Urine Negative (Negative); Mucus,Urine Occasional /hpf; Nitrite,Urine Negative (Negative); Protein,Urine 1+ (Negative); RBC,Urine 30 /hpf (0-5); Specific Gravity,Urine 1.017 (1.001-1.035); Squamous Epithelial Cell,Urine 3 /hpf (0-4); Urobilinogen,Urine <2.0 mg/dL (<2.0); WBC,Urine 5 /hpf (0-5)
[2021-05-21 19:08] LABS: Albumin 2.8 g/dL (3.5-5.0); Calcium 7.7 mg/dL (8.4-10.2); Magnesium 2.4 mg/dL (1.6-2.3); Total Bilirubin 0.4 mg/dL (0.2-1.3)
--- NOTE | 2021-05-21 19:16 | XR ---
EXAMINATION TYPE: XR chest 1V portable DATE OF EXAM: 05/21/2021 COMPARISON: 04/25/2021 HISTORY: Short of breath TECHNIQUE: FINDINGS: There is poor inspiration with some infiltrate and atelectasis left lower lobe. There is no heart failure. There are sternal wires. IMPRESSION: Poor inspiration with infiltrate and atelectasis left lower lobe that is mostly new oxana red to old exam. No heart failure seen.
[2021-05-21] MEDS ORDERED: MORPHINE SULFATE 4 MG/ML SYRINGE IVP STA (19:17)
[2021-05-21] MEDS ORDERED: SODIUM CHLORIDE 0.9% 500 ML 500 ML IV ONE (19:30)
[2021-05-21 19:31] LABS: Potassium 7.4 mmol/L (3.5-5.1)
[2021-05-21] MEDS ORDERED: INSULIN REGULAR 100 UNIT/ML VIAL (IV) IV ONE ×2 (19:33→22:35)
[2021-05-21] MEDS ORDERED: SODIUM BICARB 8.4% 50 ML SYR (1 MEQ/ML) IV ONE ×2 (19:33→22:35)
[2021-05-21] MEDS ORDERED: DEXTROSE 50% SYRINGE 50 ML IVP ONE ×2 (19:33→22:35)
[2021-05-21] MEDS ORDERED: SODIUM POLYSTYRENE SULFONATE 15 GM/60 ML BOTTLE PO ONE ×2 (19:33→22:35)
[2021-05-21] MEDS ORDERED: ALBUTEROL NEB (CONC) 2.5 MG/0.5 ML INHALATION ONE ×2 (19:33→22:35)
[2021-05-21] MEDS ORDERED: DEXTROSE 50% SYRINGE 50 ML IVP STA (19:35)
[2021-05-21 20:03] LABS: Glucose,Whole Blood 108 mg/dL (75-99)
[2021-05-21] MEDS ORDERED: SODIUM BICARB 8.4% 50 ML SYR (1 MEQ/ML) IV STA ×5 (20:18→22:37)
--- NOTE | 2021-05-21 20:33 | ED ---
General Adult HPI - General Chief complaint: Shortness of Breath Stated complaint: Weakness/sob Time Seen by Provider: 05/21/21 17:53 Source: patient, EMS, RN notes reviewed, old records reviewed Mode of arrival: EMS Limitations: no limitations - History of Present Illness Initial comments: Patient is a 65-year-old male transferred from [facility] for acute renal failure and hyperkalemia. Patient also had questionable pneumonia and was Mr. to antibiotics at the outside hospital. He states that over the last few days he has been feeling more fatigued which prompted him to present to the emergency department at the outside hospital. He does have a history of CK D, he does have a history also of hyperkalemia which was previously treated by Dr. Chen, which is why transfer was accepted. He is not on dialysis and never has been on dialysis. Does have a history of CABG, diabetes, hypertension. He states he was having generalized weakness for multiple days prior to arrival. He denies any cough, shortness of breath, chest pain, abdominal pain, nausea, vomiting, diarrhea. States he did notice decreased urine output. Prior episode of renal failure was secondary to obstruction per outside hospital. They placed a Blanco catheter and had a small amount of urine produced. He presents emergency department for further evaluation. At the outside hospital he did receive one round of hyper healing a cocktail including Kayexalate, calcium, bicarbonate, insulin, D50, albuterol. Patient does have a history of a chronic left bundle branch block. - Related Data Home Medications Medication Instructions Recorded Confirmed Aspirin [Adult Low Dose Aspirin EC] 81 mg PO DAILY 02/13/17 04/25/21 metFORMIN HCL [Glucophage] 1,000 mg PO BID 02/13/17 04/25/21 Clopidogrel [Plavix] 75 mg PO DAILY 12/24/20 04/25/21 Cyanocobalamin (Vitamin B-12) 1,000 mcg PO DAILY 03/17/21 04/25/21 [Vitamin B-12] Lansoprazole [Prevacid] 15 mg PO DAILY 04/25/21 04/25/21 Sodium Bicarbonate Tab 650 mg PO BID PRN 04/25/21 04/25/21 Atorvastatin Calcium [Lipitor] 20 mg PO HS@2100 05/21/21 05/21/21 Docusate [Colace] 100 mg PO DAILY@0900 05/21/21 05/21/21 Furosemide [Lasix] 40 mg PO BID@0900,1700 05/21/21 05/21/21 HYDROcodone/APAP 5-325MG [Hagaman 1 tab PO Q6HR PRN 05/21/21 05/21/21 5-325] Insulin Glargine,Hum.rec.anlog 20 units SQ BID@0900,2100 05/21/21 05/21/21 [Semglee Pen] Magnesium Oxide [Mag-Ox] 400 mg PO BID@0900,1700 05/21/21 05/21/21 Spironolactone [Aldactone] 50 mg PO DAILY@0900 05/21/21 05/21/21 Thiamine [Vitamin B-1] 200 mg PO DAILY@0900 05/21/21 05/21/21 Previous Rx's Medication Instructions Recorded Acetaminophen Tab [Tylenol] 650 mg PO Q6HR PRN tab 03/20/21 Allergies Allergy/AdvReac Type Severity Reaction Status Date / Time No Known Allergies Allergy Verified 05/21/21 21:08 Review of Systems ROS Statement: Those systems with pertinent positive or pertinent negative responses have been documented in the HPI. Review of Systems: CONST: endorses fatigue EYES: Denies blurry vision ENT: Denies nasal congestion C/V: Denies Chest pain RESP: Denies shortness of breath GI: Denies abdominal pain : Denies dysuria SKIN: Denies rash. MSK: Denies joint pain. NEURO: Denies headache ROS Other: All systems not noted in ROS Statement are negative. Past Medical History Past Medical History: Cancer, Heart Failure, Diabetes Mellitus, Deep Vein Thrombosis (DVT), GERD/Reflux, Hyperlipidemia, Hypertension, Prostate Disorder, Sleep Apnea/CPAP/BIPAP Additional Past Medical History / Comment(s): varicose veins, sleep apnea hx - corrected by surgery, hx prostate cancer History of Any Multi-Drug Resistant Organisms: None Reported Past Surgical History: Orthopedic Surgery, Prostate Surgery, Tonsillectomy Additional Past Surgical History / Comment(s): surgery for sleep apnea, left hand carpal tunnel Past Anesthesia/Blood Transfusion Reactions: No Reported Reaction Past Psychological History: No Psychological Hx Reported Smoking Status: Former smoker Past Alcohol Use History: Occasional Past Drug Use History: None Reported - Past Family History Mother Family Medical History: No Reported History General Exam - General Exam Comments Initial Comments: General: Appears in no acute distress. HEAD: Normal with no signs of head trauma. EYES: PERRLA, EOMI, conjunctiva normal, no discharge. ENT: Hearing grossly intact, normal oropharynx. Mucous membranes. RESPIRATORY: Clear breath sounds bilaterally. No wheezes, rales, or rhonchi. C/V: Regular rate and rhythm. S1 and S2 auscultated, no edema, peripheral pulses 2+ and intact throughout ABD: Abd is soft, nontender, nondistended EXT: Normal range of motion, no obvious deformity SKIN: No rashes or lesions observed on exposed skin. NEURO: Alert and oriented 4. Limitations: no limitations Eye exam: Absent: conjunctival injection Course Vital Signs 05/21/21 05/21/21 05/21/21 17:48 19:00 19:25 Temperature 97.6 F Pulse Rate 81 76 73 Respiratory 18 18 18 Rate Blood Pressure 119/75 130/85 99/69 O2 Sat by Pulse 99 96 Oximetry 05/21/21 05/21/21 05/21/21 19:45 20:00 20:01 Temperature Pulse Rate 90 92 Respiratory 18 Rate Blood Pressure 84/57 131/83 O2 Sat by Pulse 95 Oximetry 05/21/21 05/21/21 20:12 20:20 Temperature Pulse Rate 130 H 131 H Respiratory 18 Rate Blood Pressure O2 Sat by Pulse Oximetry Medical Decision Making - Medical Decision Making Based on patient's presentation and physical exam, patient is not acute renal failure as well as hyperkalemia. History answered here for admission and evaluation by nephrology. Possible dialysis as well. We will obtain repeat laboratory studies. I will primitively administered 2 additional grams of calcium, as the patient's initial EKG upon arrival did show some peaked T waves. Patient also has the chronic left bundle branch block. He was in agreement this plan. We will repeat basic laboratory studies as well. He was given a small bolus of normal saline as he appears dehydrated. Initial EKG did show the peaked T waves. A repeat EKG was also obtained during an episode of hypoglycemia and showed no acute changes but some improvement in the peaked T waves. Patient is chronic left bundle branch block. Patient's chest x-ray revealed atelectasis. There was a delay in obtaining laboratory studies for unknown reason, however it did reveal a leukocytosis that is mild of 11.8. Patient is a hyponatremia of 127, a hyperkalemia of 7.4. Bicarb is 13 with a normal anion gap. Patient has acute renal failure with BUNs of 115 and creatinine of 4.23. Patient's blood sugar level is 46, and he was interested of D50 abdomen returned as 108. Initial lactic acid is 2.6. Troponin is elevated to 0.187, likely secondary to his acute renal failure. Remainder of labs are unremarkable. I frequently reevaluated the patient. He did have a hypoglycemic episode in which he was confused, but recovered following D50 administered. Due to the continued hyperkalemia, I did administer an additional hyperkalemia cocktail including albuterol, insulin, D50, bicarb, Calcium, Kayexylate. I consulted and spoke with ICU, Dr. Bedoya, who accepted the admission. I consulted and spoke with nephrology, Dr. Solomon, who requested that we ensure that a Blanco is placed which is. He also recommended that we administer for additional amps of bicarb, start the patient on a D5 3 on bicarb drip at 100 mL an hour. He requests a repeat potassium at approximately 11 PM. It is greater than 6, he must be called back and we will likely start dialysis. If it is less than 6, we will continue medically managing the patient. At this time I will admit the patient to the ICU. I spoke with the admitting team, MANDIE Miranda who accepted the patient. Patient was admitted in serious condition. - Lab Data Result diagrams: 05/21/21 18:33 05/21/21 18:33 Lab Results 05/21/21 05/21/21 05/21/21 Range/Units 18:33 18:33 18:33 WBC 11.8 H (3.8-10.6) k/uL RBC 6.00 H (4.30-5.90) m/uL Hgb 15.8 (13.0-17.5) gm/dL Hct 51.1 (39.0-53.0) % MCV 85.2 (80.0-100.0) fL MCH 26.4 (25.0-35.0) pg MCHC 31.0 (31.0-37.0) g/dL RDW 15.7 H (11.5-15.5) % Plt Count 257 (150-450) k/uL MPV 8.9 Neutrophils % 85 % Lymphocytes % 9 % Monocytes % 6 % Eosinophils % 0 % Basophils % 0 % Neutrophils # 10.0 H (1.3-7.7) k/uL Lymphocytes # 1.0 (1.0-4.8) k/uL Monocytes # 0.7 (0-1.0) k/uL Eosinophils # 0.0 (0-0.7) k/uL Basophils # 0.0 (0-0.2) k/uL Hypochromasia Slight Sodium 127 L (137-145) mmol/L Potassium 7.4 H* (3.5-5.1) mmol/L Chloride 99 (98-107) mmol/L Carbon Dioxide 13 L (22-30) mmol/L Anion Gap 15 mmol/L BUN 115 H* (9-20) mg/dL Creatinine 4.23 H (0.66-1.25) mg/dL Est GFR (CKD-EPI)AfAm 16 (>60 ml/min/1.73 sqM) Est GFR (CKD-EPI)NonAf 14 (>60 ml/min/1.73 sqM) Glucose 46 L* (74-99) mg/dL POC Glucose (mg/dL) (75-99) mg/dL POC Glu Rug Designer ID Plasma Lactic Acid Oz (0.7-2.0) mmol/L Calcium 7.7 L (8.4-10.2) mg/dL Magnesium 2.4 H (1.6-2.3) mg/dL Total Bilirubin 0.4 (0.2-1.3) mg/dL AST 15 L (17-59) U/L ALT 6 (4-49) U/L Alkaline Phosphatase 83 (38-126) U/L Troponin I 0.187 H* (0.000-0.034) ng/mL Total Protein 6.0 L (6.3-8.2) g/dL Albumin 2.8 L (3.5-5.0) g/dL Urine Color Urine Appearance (Clear) Urine pH (5.0-8.0) Ur Specific Steptoe (1.001-1.035) Urine Protein (Negative) Urine Glucose (UA) (Negative) Urine Ketones (Negative) Urine Blood (Negative) Urine Nitrite (Negative) Urine Bilirubin (Negative) Urine Urobilinogen (<2.0) mg/dL Ur Leukocyte Esterase (Negative) Urine RBC (0-5) /hpf Urine WBC (0-5) /hpf Ur Squamous Epith Cells (0-4) /hpf Urine Bacteria (None) /hpf Hyaline Casts (0-2) /lpf Urine Mucus (None) /hpf Urine Yeast (Budding) (None) /hpf 05/21/21 05/21/21 05/21/21 Range/Units 18:33 18:34 20:00 WBC (3.8-10.6) k/uL RBC (4.30-5.90) m/uL Hgb (13.0-17.5) gm/dL Hct (39.0-53.0) % MCV (80.0-100.0) fL MCH (25.0-35.0) pg MCHC (31.0-37.0) g/dL RDW (11.5-15.5) % Plt Count (150-450) k/uL MPV Neutrophils % % Lymphocytes % % Monocytes % % Eosinophils % % Basophils % % Neutrophils # (1.3-7.7) k/uL Lymphocytes # (1.0-4.8) k/uL Monocytes # (0-1.0) k/uL Eosinophils # (0-0.7) k/uL Basophils # (0-0.2) k/uL Hypochromasia Sodium (137-145) mmol/L Potassium (3.5-5.1) mmol/L Chloride (98-107) mmol/L Carbon Dioxide (22-30) mmol/L Anion Gap mmol/L BUN (9-20) mg/dL Creatinine (0.66-1.25) mg/dL Est GFR (CKD-EPI)AfAm (>60 ml/min/1.73 sqM) Est GFR (CKD-EPI)NonAf (>60 ml/min/1.73 sqM) Glucose (74-99) mg/dL POC Glucose (mg/dL) 108 H (75-99) mg/dL POC Glu Rug Designer ID Laya Lema Plasma Lactic Acid Oz 2.6 H* (0.7-2.0) mmol/L Calcium (8.4-10.2) mg/dL Magnesium (1.6-2.3) mg/dL Total Bilirubin (0.2-1.3) mg/dL AST (17-59) U/L ALT (4-49) U/L Alkaline Phosphatase (38-126) U/L Troponin I (0.000-0.034) ng/mL Total Protein (6.3-8.2) g/dL Albumin (3.5-5.0) g/dL Urine Color Yellow Urine Appearance Cloudy (Clear) Urine pH 5.0 (5.0-8.0) Ur Specific Steptoe 1.017 (1.001-1.035) Urine Protein 1+ H (Negative) Urine Glucose (UA) Negative (Negative) Urine Ketones Negative (Negative) Urine Blood Moderate H (Negative) Urine Nitrite Negative (Negative) Urine Bilirubin Negative (Negative) Urine Urobilinogen <2.0 (<2.0) mg/dL Ur Leukocyte Esterase Negative (Negative) Urine RBC 30 H (0-5) /hpf Urine WBC 5 (0-5) /hpf Ur Squamous Epith Cells 3 (0-4) /hpf Urine Bacteria Few H (None) /hpf Hyaline Casts 134 H (0-2) /lpf Urine Mucus Occasional H (None) /hpf Urine Yeast (Budding) Occasional H (None) /hpf - EKG Data -: EKG Interpreted by Me EKG Comments: 12-lead Electrocardiogram Interpretation Note EKG was reviewed and interpreted by myself. 12-lead ECG performed at 1758 is interpreted by me as revealing normal sinus rhythm at a rate of 85 beats per minute. Winnett is normal. ND interval is 150 ms, QRS duration is 180 ms, QTc is 4-90 ms.. Patient has a left bundle branch block which is chronic. No acute ST segment or T-wave abnormalities to suggest ischemia. He does have peaked T waves which are suggestive of hyperkalemia.. R wave progression across the precordium was satisfactory. By my interpretation this EKG is non-diagnostic for acute ischemia. Repeat EKG was obtained: 12-lead Electrocardiogram Interpretation Note EKG was reviewed and interpreted by myself. 12-lead ECG performed at 1958 is interpreted by me as revealing normal sinus rhythm at a rate of 89 beats per minute. Winnett is normal. ND interval is 114 ms, QRS durations 132 ms, QTc is 459 ms.. There were no ST or T wave abnormalities to suggest myocardial ischemia or injury. Patient has a chronic left bundle branch block. Peaked T waves are improved at this time. R wave progression across the precordium was satisfactory. By my interpretation this EKG is non-diagnostic for acute ischemia. Critical Care Time Critical Care Time: Yes Total Critical Care Time: 35 Critical Care Time: Upon my evaluation, this patient had a high probability of imminent or life- threatening deterioration due to acute renal failure, hyperkalemia, which required my direct attention, intervention, and personal management. I have personally provided 35 minutes of critical care time exclusive of time spent on separately billable procedures. Time includes review of laboratory data, radiology results, discussion with consultants, and monitoring for potential decompensation. Interventions were performed as documented in my note. Disposition Clinical Impression: Acute renal failure (ARF), Hyperkalemia, Atelectasis, Elevated troponin, Hypoglycemia Disposition: ADMITTED IP TO THIS HOSP Condition: Serious
[2021-05-21] MEDS ORDERED: NALOXONE 0.4 MG/ML 1 ML VIAL IV PRN (20:34)
[2021-05-21] MEDS ORDERED: ACETAMINOPHEN TAB 325 MG TAB PO PRN (20:34)
[2021-05-21] MEDS: DEXTROSE 5% IN WATER 1,000 ML with SODIUM BICARB (1 MEQ/ML) 150 ML IV SCH (21:30)
[2021-05-21] MEDS ORDERED: SODIUM CHLORIDE 0.9% 1,000 ML IV ONE (22:13)
[2021-05-21] MEDS ORDERED: CALCIUM GLUCONATE 1 GM in SODIUM CHLORIDE 0.9% 100 ML IVPB ONE (22:55)
[2021-05-21] MEDS ORDERED: HEPARIN SODIUM 1,000 UN/ML (10ML VL) ONE (23:35)
[2021-05-22] MEDS ORDERED: NOREPINEPHRINE IV PRN (00:32)
[2021-05-22] MEDS: NOREPINEPHRINE 4 MG in SODIUM CHLORIDE 0.9% 250 ML IV PRN ×3 (04:57→12:00)
[2021-05-22 06:57] LABS: Albumin 2.4 g/dL (3.5-5.0); Potassium 5.3 mmol/L (3.5-5.1); Total Bilirubin 0.5 mg/dL (0.2-1.3); Total Protein 5.2 g/dL (6.3-8.2)
[2021-05-22] MEDS ORDERED: DEXTROSE 50% SYRINGE 50 ML IVP STA ×2 (07:10→10:20)
[2021-05-22 07:25] LABS: Glucose,Whole Blood 51 mg/dL (75-99)
[2021-05-22 07:33] LABS: Basophils % (A) 0 %; Eosinophils % (A) 0 %; HCT 44.5 % (39.0-53.0); HGB 14.3 gm/dL (13.0-17.5); Lymphocytes # (A) 1.2 k/uL (1.0-4.8); Lymphocytes % (A) 5 %; MCH 26.5 pg (25.0-35.0); MCHC 32.1 g/dL (31.0-37.0); MCV 82.7 fL (80.0-100.0); Mean Platelet Volume 9.6; Monocytes % (A) 9 %; Neutrophils # (A) 18.9 k/uL (1.3-7.7); Neutrophils % (A) 85 %; Platelet Count 208 k/uL (150-450); RBC 5.38 m/uL (4.30-5.90); RDW 15.6 % (11.5-15.5); WBC 22.3 k/uL (3.8-10.6)
[2021-05-22 07:57] LABS: Glucose,Whole Blood 63 mg/dL (75-99)
[2021-05-22] MEDS ORDERED: DEXTROSE 10% IN WATER 1,000 ML with SODIUM CHLORIDE 4MEQ/ML VIAL 153.8 MEQ IV SCH (08:00)
[2021-05-22 08:25] LABS: Glucose,Whole Blood 87 mg/dL (75-99)
[2021-05-22] MEDS: DEXTROSE 10% IN WATER 1,000 ML IV SCH (09:29)
[2021-05-22] MEDS: DEXTROSE 5% IN WATER 1,000 ML with SODIUM BICARB (1 MEQ/ML) 150 ML IV SCH (09:29)
[2021-05-22] MEDS: SODIUM CHLORIDE 0.9% 1,000 ML IV SCH (09:32)
--- NOTE | 2021-05-22 09:48 | US ---
EXAMINATION TYPE: US abdomen limited DATE OF EXAM: 05/22/2021 COMPARISON: NONE CLINICAL HISTORY: Ascites . Hx of ascites and paracentesis. Fluid seen in all four quadrants, largest pocket seen in LLQ. IMPRESSION: More ascites
[2021-05-22 09:49] LABS: Glucose,Whole Blood 53 mg/dL (75-99)
--- NOTE | 2021-05-22 09:51 | PCN ---
PROCEDURE NOTE PREOPERATIVE DIAGNOSIS: Acute on chronic renal failure. POSTOPERATIVE DIAGNOSIS: Acute on chronic renal failure. PROCEDURE PERFORMED: Ultrasound-guided triple-lumen dialysis catheter placement via right femoral approach. PROCEDURE DETAILS: This patient was seen in the emergency room. Right groin was prepped and draped in usual sterile manner and 1% lidocaine was infiltrated in groin area. After that, ultrasound-guided micropuncture was introduced into the right femoral vein. Micropuncture guide was passed and 4-Angolan dilator was advanced on top of the guidewire. After that we passed a regular guidewire without any resistance. The dilator was advanced and then the dialysis catheter advanced on top of the guidewire. Guidewire was removed. Catheter was secured with 3-0 nylon. Flushed with saline and hep-locked. Dressing applied. Patient tolerated the procedure well. MMODL / IJN: [id number] /
[2021-05-22 10:03] LABS: Glucose,Whole Blood 97 mg/dL (75-99)
[2021-05-22] MEDS ORDERED: FUROSEMIDE 10 MG/ML 10 ML VIAL IV STA (10:15)
--- NOTE | 2021-05-22 10:26 | P.NPCON ---
History of Present Illness - Reason for Consult acute renal failure, chronic renal failure - History of Present Illness Reason for consultation: Acute kidney injury on chronic kidney disease History of present illness: Patient is a 65-year-old male seen in consultation for acute kidney injury on chronic kidney disease. Patient has chronic kidney disease stage IV with baseline creatinine near 2 secondary to hepatorenal syndrome. Patient's creatinine on admission was 4.23. Potassium level was high at 7.4. This was medically treated and repeat potassium level was 6.9. Patient was urgently hemodialysis last night. This morning his potassium level is 5.3. Patient's currently resting in bed. He is not a reliable historian. He was taking spironolactone 50 mg once daily which is currently held. He was also on Lasix 40 mg twice daily. Patient does have history of diabetes. He was noted to be acidotic with a bicarb level of 13. Bicarb level is improved to 21 as of this morning. Patient has been hypoglycemic and was started on D10 drip this morning. Patient initially presented to [facility] and was then transferred here. He did receive 2 L of normal saline bolus on admission. He is currently on Levophed. Vital signs are stable. On Levophed. General: Lethargic. LUNGS: Breath sounds decreased. HEART: Rate and Rhythm are regular. ABDOMEN: Soft, distention noted. EXTREMITITES: 1+ edema. Past Medical History Past Medical History: Cancer, Heart Failure, Diabetes Mellitus, Deep Vein Thrombosis (DVT), GERD/Reflux, Hyperlipidemia, Hypertension, Prostate Disorder, Sleep Apnea/CPAP/BIPAP Additional Past Medical History / Comment(s): varicose veins, sleep apnea hx - corrected by surgery, hx prostate cancer History of Any Multi-Drug Resistant Organisms: None Reported Past Surgical History: Orthopedic Surgery, Prostate Surgery, Tonsillectomy Additional Past Surgical History / Comment(s): surgery for sleep apnea, left hand carpal tunnel Past Anesthesia/Blood Transfusion Reactions: No Reported Reaction Past Psychological History: No Psychological Hx Reported Smoking Status: Former smoker Past Alcohol Use History: Occasional Past Drug Use History: None Reported - Past Family History Mother Family Medical History: No Reported History Medications and Allergies Home Medications Medication Instructions Recorded Confirmed Type Aspirin [Adult Low Dose Aspirin EC] 81 mg PO DAILY@0900 02/13/17 05/21/21 History metFORMIN HCL [Glucophage] 1,000 mg PO BID@0900,1700 02/13/17 05/21/21 History Clopidogrel [Plavix] 75 mg PO DAILY@0900 12/24/20 05/21/21 History Cyanocobalamin (Vitamin B-12) 1,000 mcg PO DAILY@0900 03/17/21 05/21/21 History [Vitamin B-12] Acetaminophen Tab [Tylenol] 650 mg PO Q6HR PRN tab 03/20/21 05/21/21 Rx Lansoprazole [Prevacid] 15 mg PO DAILY@0600 04/25/21 05/21/21 History Sodium Bicarbonate Tab 650 mg PO Q12H PRN 04/25/21 05/21/21 History Atorvastatin Calcium [Lipitor] 20 mg PO HS@209905/21/21 05/21/21 History Docusate [Colace] 100 mg PO DAILY@0900 05/21/21 05/21/21 History Furosemide [Lasix] 40 mg PO BID@0900,1700 05/21/21 05/21/21 History HYDROcodone/APAP 5-325MG [[place] 1 tab PO Q6HR PRN 05/21/21 05/21/21 History 5-325] Insulin Glargine,Hum.rec.anlog 20 units SQ BID@0900,2100 05/21/21 05/21/21 History [Semglee Pen] Magnesium Oxide [Mag-Ox] 400 mg PO BID@0900,1700 05/21/21 05/21/21 History Spironolactone [Aldactone] 50 mg PO DAILY@0900 05/21/21 05/21/21 History Thiamine [Vitamin B-1] 200 mg PO DAILY@0900 05/21/21 05/21/21 History Allergies Allergy/AdvReac Type Severity Reaction Status Date / Time No Known Allergies Allergy Verified 05/21/21 21:08 Physical Exam Vitals: Vital Signs Temp Pulse Resp BP Pulse Ox 05/22/21 08:00 97.8 F 90 18 102/65 96 05/22/21 06:32 96 18 98/68 97 05/22/21 06:02 97 18 106/67 96 05/22/21 05:37 101 H 15 87/62 96 05/22/21 04:05 103 H 18 92/54 93 L 05/21/21 23:00 142 H 18 62/37 05/21/21 22:53 90 20 87/46 05/21/21 22:40 83/63 05/21/21 22:17 103 H 20 109/71 94 L 05/21/21 22:15 97 18 109/79 97 05/21/21 21:38 96 18 89/57 94 L 05/21/21 20:20 131 H 18 05/21/21 20:12 130 H 05/21/21 20:01 92 05/21/21 20:00 90 18 131/83 95 05/21/21 19:45 84/57 05/21/21 19:25 73 18 99/69 96 05/21/21 19:00 76 18 130/85 05/21/21 17:48 97.6 F 81 18 119/75 99 Intake and Output 05/21/21 05/22/21 05/22/21 22:59 06:59 14:59 Intake Total 48.389 205.611 Output Total 0 Balance 48.389 205.611 Intake: Intake, IV Titration 48.389 205.611 Amount Norepinephrine 4 mg In 48.389 205.611 Sodium Chloride 0.9% 250 ml @ Per Protocol IV .Q0M PRN Rx#:[id number] Output: Hemodialysis 0 Other: Weight 90.718 kg Results - Lab Results Most recent lab results Calcium 7.0 mg/dL (8.4-10.2) L 05/22/21 06:26 Magnesium 2.0 mg/dL (1.6-2.3) 05/22/21 06:26 05/22/21 06:26 05/22/21 06:26 Assessment and Plan Plan: Assessment: 1. Acute kidney injury secondary to ATN secondary to hypotension. Creatinine 4.23 on admission. 2. Chronic kidney disease stage IV with baseline creatinine near 2 secondary to hepatorenal syndrome. 3. Hyperkalemia secondary to acute kidney injury, spironolactone and acidosis. 4. Metabolic acidosis secondary to acute kidney injury and metformin. 5. History of liver cirrhosis. Patient had paracentesis on 04/29/2021 with 4.6 L drained. 6. Ascites. 7. Lower extremity edema. 8. Shock maintained on Levophed. Plan: Normal saline at 50 mL an hour. Lasix 80 mg IV once today. Patient completed urgent hemodialysis last night. Check BMP this afternoon. Continue to assess daily for need for renal replacement therapy. Check abdominal ultrasound. May need another paracentesis. He will require albumin pre-and post paracentesis. Wean Levophed. Follow-up cultures. Continue to assess daily for need for renal replacement therapy. Thank you for the consultation. I will continue to follow the patient with you during his hospital stay.
--- NOTE | 2021-05-22 10:52 | CT ---
EXAMINATION TYPE: CT brain wo con DATE OF EXAM: 05/22/2021 COMPARISON: None HISTORY: Left sided weakness, acute renal failure CT DLP: 1187.8 mGycm Automated exposure control for dose reduction was used. Helical imaging through the brain FINDINGS: There is artifact present on the exam. There is no hemorrhage or hydrocephalus. Cortical atrophy is n oted. Periventricular white matter shows patchy low attenuation. The calvarium is intact. Inflammator y change present within the maxillary sinuses. There are cerebral vascular calcifications present. Or bits are symmetric. IMPRESSION: AGE-RELATED CHANGES OF ATROPHY AND CHRONIC ISCHEMIA.
[2021-05-22 10:53] LABS: Hepatitis B Surface AB- Quant 3.5 mIU/mL; Hepatitis B Surface Antibody Nonreactive (Nonreactive); Hepatitis B Surface Antigen Nonreactive (Nonreactive)
--- NOTE | 2021-05-22 11:13 | CONS ---
DATE OF CONSULTATION: 05/22/2021 This patient was seen in the emergency room on a STAT consult. This patient has history of hyperkalemia, metabolic acidosis, acute kidney injury secondary to ATN and hypertension. Medical history includes history of cirrhosis of the liver with ascites, bilateral lower extremity edema, acute shortness of breath. The patient was seen in the emergency room. Neck is supple. Patient is very short of breath. Lungs are congested. Heart rate and rhythm are regular. Abdomen distended with ascites. The patient has bilateral leg edema and femorals are 1+. PLAN: Placement of dialysis catheter. Risks and complications discussed. MMODL / IJN: [id number] / BREANNE
--- NOTE | 2021-05-22 11:30 | P.CNPUL ---
History of Present Illness Consult date: 05/22/21 Requesting physician: Ana Maria Polk Reason for consult: other (Critical care management) Chief complaint: Fatigue, weakness History of present illness: This is a 65-year-old male patient who presented initially to [facility] with complaints of fatigue and weakness. He is found to have significant hyperkalemia and acute renal failure. He was subsequently transferred here for further care. He was discharged from here on 05/01/2021 for underlying liver disease and large ascites status post paracentesis of 4.6 L of fluid removed. He does have chronic kidney disease stage IIIB with a baseline creatinine of 2. Ischemic cardiomyopathy with an ejection fraction of 40%. He has a history of diabetes mellitus, hypertension, coronary artery disease with previous bypass surgery. Initial potassium 7.4 and a creatinine of 4.23. An emergent hemodialysis catheter was placed in the right groin last night by vascular services and he completed hemodialysis at approximate 4:30 this [facility]. Current lab results reveal a white count of 22.3. Hemoglobin 14.3. Sodium 135. Potassium 5.3. Bicarb 21. BUN 93. Creatinine 3.39. Blood glucose 36, lactic acid 3.2. Troponin 0.18, 0.29. Urinalysis with moderate blood and 1+ protein and few bacteria. Salguero virus by PCR not detected. Hepatitis B screen negative. He is seen today in consultation in the emergency room for plan to transfer to the ICU. He is requiring norepinephrine at 0.25 mcg/kg/m. He is receiving D10 for his hypoglycemia, currently at 25 ML's per hour. He has 0.9 normal saline at 50 MLS per hour. He has received 7 A of sodium bicarb thus far. Hyperkalemia treated per protocol. The patient is arousable answering questions appropriately but moaning. He denies any pain. He is maintaining O2 saturations in the mid 90s on 4 L nasal cannula. He is currently afebrile. Chest x-ray reveals poor expiratory effort with infiltrate and atelectasis of the left lower lobe. Abdominal ultrasound reveals evidence of glossitis with a history of previous ascites and paracentesis. Computed tomography scan of the brain revealed age-related atrophy with chronic ischemia. Awaiting transfer to ICU. Review of Systems ROS unobtainable: due to mental status Past Medical History Past Medical History: Cancer, Heart Failure, Diabetes Mellitus, Deep Vein Thrombosis (DVT), GERD/Reflux, Hyperlipidemia, Hypertension, Prostate Disorder, Sleep Apnea/CPAP/BIPAP Additional Past Medical History / Comment(s): varicose veins, sleep apnea hx - corrected by surgery, hx prostate cancer History of Any Multi-Drug Resistant Organisms: None Reported Past Surgical History: Orthopedic Surgery, Prostate Surgery, Tonsillectomy Additional Past Surgical History / Comment(s): surgery for sleep apnea, left hand carpal tunnel Past Anesthesia/Blood Transfusion Reactions: No Reported Reaction Past Psychological History: No Psychological Hx Reported Smoking Status: Former smoker Past Alcohol Use History: Occasional Past Drug Use History: None Reported - Past Family History Mother Family Medical History: No Reported History Medications and Allergies Home Medications Medication Instructions Recorded Confirmed Type Aspirin [Adult Low Dose Aspirin EC] 81 mg PO DAILY@0900 02/13/17 05/21/21 History metFORMIN HCL [Glucophage] 1,000 mg PO BID@0900,1700 02/13/17 05/21/21 History Clopidogrel [Plavix] 75 mg PO DAILY@0900 12/24/20 05/21/21 History Cyanocobalamin (Vitamin B-12) 1,000 mcg PO DAILY@0900 03/17/21 05/21/21 History [Vitamin B-12] Acetaminophen Tab [Tylenol] 650 mg PO Q6HR PRN tab 03/20/21 05/21/21 Rx Lansoprazole [Prevacid] 15 mg PO DAILY@0600 04/25/21 05/21/21 History Sodium Bicarbonate Tab 650 mg PO Q12H PRN 04/25/21 05/21/21 History Atorvastatin Calcium [Lipitor] 20 mg PO HS@209905/21/21 05/21/21 History Docusate [Colace] 100 mg PO DAILY@0900 05/21/21 05/21/21 History Furosemide [Lasix] 40 mg PO BID@0900,1700 05/21/21 05/21/21 History HYDROcodone/APAP 5-325MG [[place] 1 tab PO Q6HR PRN 05/21/21 05/21/21 History 5-325] Insulin Glargine,Hum.rec.anlog 20 units SQ BID@0900,2100 05/21/21 05/21/21 History [Semglee Pen] Magnesium Oxide [Mag-Ox] 400 mg PO BID@0900,1700 05/21/21 05/21/21 History Spironolactone [Aldactone] 50 mg PO DAILY@0900 05/21/21 05/21/21 History Thiamine [Vitamin B-1] 200 mg PO DAILY@0900 05/21/21 05/21/21 History Allergies Allergy/AdvReac Type Severity Reaction Status Date / Time No Known Allergies Allergy Verified 05/21/21 21:08 Physical Exam Vitals: Vital Signs Temp Pulse Resp BP Pulse Ox 05/22/21 11:00 92 16 107/66 98 05/22/21 10:30 88 16 109/77 98 05/22/21 10:06 97.3 F L 90 20 101/87 97 05/22/21 09:47 97.5 F L 95 18 111/83 96 05/22/21 08:00 97.8 F 90 18 102/65 96 05/22/21 06:32 96 18 98/68 97 05/22/21 06:02 97 18 106/67 96 05/22/21 05:37 101 H 15 87/62 96 05/22/21 04:05 103 H 18 92/54 93 L 05/21/21 23:00 142 H 18 62/37 05/21/21 22:53 90 20 87/46 05/21/21 22:40 83/63 05/21/21 22:17 103 H 20 109/71 94 L 05/21/21 22:15 97 18 109/79 97 05/21/21 21:38 96 18 89/57 94 L 05/21/21 20:20 131 H 18 05/21/21 20:12 130 H 05/21/21 20:01 92 05/21/21 20:00 90 18 131/83 95 05/21/21 19:45 84/57 05/21/21 19:25 73 18 99/69 96 05/21/21 19:00 76 18 130/85 05/21/21 17:48 97.6 F 81 18 119/75 99 Intake and Output 05/21/21 05/22/21 05/22/21 22:59 06:59 14:59 Intake Total 48.389 371.340 Output Total 0 0 Balance 48.389 371.340 Intake: Intake, IV Titration 48.389 371.340 Amount Dextrose 10% in Water 1, 25 000 ml @ 25 mls/hr IV . Q24H LESLIE Rx#:[id number] Norepinephrine 4 mg In 48.389 296.340 Sodium Chloride 0.9% 250 ml @ Per Protocol IV .Q0M PRN Rx#:[id number] Sodium Chloride 0.9% 1, 50 000 ml @ 50 mls/hr IV . Q20H LESLIE Rx#:[id number] Output: Urine 0 Hemodialysis 0 Other: Weight 90.718 kg GENERAL EXAM: Arousable, moaning, 65-year-old gentleman, on 4 L nasal cannula, denies any significant discomfort. HEAD: Normocephalic. EYES: Normal reaction of pupils, equal size. NOSE: Clear with pink turbinates. THROAT: No erythema or exudates. NECK: No masses, no JVD. CHEST: No chest wall deformity. LUNGS: Equal air entry with crackles in the left lung base. CVS: S1 and S2 normal with no audible murmur, regular rhythm. ABDOMEN: No hepatosplenomegaly, normal bowel sounds, no guarding or rigidity. SPINE: No scoliosis or deformity SKIN: No rashes CENTRAL NERVOUS SYSTEM: No focal deficits, tone is normal in all 4 extremities. EXTREMITIES: Right femoral triple-lumen hemodialysis catheter in place. There is no peripheral edema. No clubbing, no cyanosis. Peripheral pulses are intact. Results - Laboratory Findings CBC and BMP: 05/22/21 06:26 05/22/21 06:26 Abnormal lab findings: Abnormal Labs 05/21/21 05/21/21 05/21/21 18:33 18:33 18:33 WBC 11.8 H RBC 6.00 H RDW 15.7 H Neutrophils # 10.0 H Monocytes # Sodium 127 L Potassium 7.4 H* Carbon Dioxide 13 L BUN 115 H* Creatinine 4.23 H Glucose 46 L* POC Glucose (mg/dL) Plasma Lactic Acid Oz Calcium 7.7 L Magnesium 2.4 H AST 15 L Troponin I 0.187 H* Total Protein 6.0 L Albumin 2.8 L Urine Protein Urine Blood Urine RBC Urine Bacteria Hyaline Casts Urine Mucus Urine Yeast (Budding) 05/21/21 05/21/21 05/21/21 18:33 18:34 20:00 WBC RBC RDW Neutrophils # Monocytes # Sodium Potassium Carbon Dioxide BUN Creatinine Glucose POC Glucose (mg/dL) 108 H Plasma Lactic Acid Oz 2.6 H* Calcium Magnesium AST Troponin I Total Protein Albumin Urine Protein 1+ H Urine Blood Moderate H Urine RBC 30 H Urine Bacteria Few H Hyaline Casts 134 H Urine Mucus Occasional H Urine Yeast (Budding) Occasional H 05/21/21 05/21/21 05/21/21 21:26 21:26 22:16 WBC RBC RDW Neutrophils # Monocytes # Sodium Potassium 6.9 H* Carbon Dioxide BUN Creatinine Glucose POC Glucose (mg/dL) Plasma Lactic Acid Oz 4.4 H* Calcium Magnesium AST Troponin I 0.181 H* Total Protein Albumin Urine Protein Urine Blood Urine RBC Urine Bacteria Hyaline Casts Urine Mucus Urine Yeast (Budding) 05/22/21 05/22/21 05/22/21 01:05 06:26 06:26 WBC 22.3 H RBC RDW 15.6 H Neutrophils # 18.9 H Monocytes # 2.0 H Sodium Potassium Carbon Dioxide BUN Creatinine Glucose POC Glucose (mg/dL) Plasma Lactic Acid Oz 6.2 H* Calcium Magnesium AST Troponin I 0.296 H* Total Protein Albumin Urine Protein Urine Blood Urine RBC Urine Bacteria Hyaline Casts Urine Mucus Urine Yeast (Budding) 05/22/21 05/22/21 05/22/21 06:26 06:26 07:23 WBC RBC RDW Neutrophils # Monocytes # Sodium 135 L Potassium 5.3 H Carbon Dioxide 21 L BUN 93 H Creatinine 3.39 H Glucose 36 L* POC Glucose (mg/dL) 51 L Plasma Lactic Acid Oz 3.2 H* Calcium 7.0 L Magnesium AST 14 L Troponin I Total Protein 5.2 L Albumin 2.4 L Urine Protein Urine Blood Urine RBC Urine Bacteria Hyaline Casts Urine Mucus Urine Yeast (Budding) 05/22/21 05/22/21 07:45 09:34 WBC RBC RDW Neutrophils # Monocytes # Sodium Potassium Carbon Dioxide BUN Creatinine Glucose POC Glucose (mg/dL) 63 L 53 L Plasma Lactic Acid Oz Calcium Magnesium AST Troponin I Total Protein Albumin Urine Protein Urine Blood Urine RBC Urine Bacteria Hyaline Casts Urine Mucus Urine Yeast (Budding) - Diagnostic Findings Chest x-ray: image reviewed Assessment and Plan Assessment: 1 Acute renal failure with presenting creatinine of 4.23, status post hemodialysis urgently this morning with current creatinine of 3.39 2 Acute hyperkalemia presenting at 7.4 currently 5.3 3 Hypoglycemia in a patient with a history of diabetes mellitus type 2 currently receiving D10 infusion at 25 ML's per hour 4 Acute hypotension requiring norepinephrine currently at 0.25 mcg/kg/m 5 Altered mental status secondary to above 6 Recent discharge following liver disease with large ascites and status post paracentesis with 4.6 L of fluid removed on 04/29/2021 7 History of chronic kidney disease stage IIIB with a baseline creatinine of 2 8 History of coronary artery disease with previous coronary artery bypass grafting 9 Ischemic cardiomyopathy with ejection fraction of 40% 10 Hypertension 11 Hyperlipidemia 12 History of prostate cancer Plan: The patient was seen and evaluated today Chest x-ray, labs, CAT scans reviewed Transfer to the ICU once a bed is available Nephrology is on the case regarding renal failure Titrate the norepinephrine keeping mean arterial pressure of 60 Titrate the FiO2 as tolerated Continue D10 infusion, monitoring blood glucose levels frequently We will continue to follow and make further recommendations based on his clinical status I, the cosigning physician, performed a history & physical examination of the patient. Lungs sounds with crackles in the left lung base. Maintaining good O2 saturations in the 90s on 2 L/m per nasal cannula. I discussed the assessment and plan of care with my nurse practitioner, Clara Arredondo. I attest to the above c onsultation as dictated by her. Time with Patient: Greater than 30
--- NOTE | 2021-05-22 11:38 | CT ---
EXAMINATION TYPE: CODE STROKE: CTA head neck DATE OF EXAM: 05/22/2021 HISTORY: Lt sided weakness COMPARISON: CT brain same date CT DLP: 457.8 mGycm. Automated Exposure Control for Dose Reduction was Utilized. TECHNIQUE: CTA scan of the neck is performed with IV Contrast, patient injected with 65 mL of Isovue 370, axial images are obtained, coronal and sagittal reformatted images are reviewed. 3D reconstruct ed images are created on an independent workstation and reviewed. FINDINGS: Post process images are somewhat limited. Carotid/Vascular Structures: Transverse aorta, 2 super aortic branch vessels are patent, the left and right subclavian, left and right common carotid arteries are patent. Internal and extra carotid sandra cassy are patent without significant stenosis. There is no evident dissection. Intracranial circulation shows patent internal carotid arteries and branches. No evident embolus, dis section, aneurysm, or stenosis. Cerebral vascular calcifications are present. Other: Degenerative disc changes are present in the visualized spine. Patient is post median sternoto my. There is multilevel facet arthropathy, foraminal encroachment, sclerosis is present at C2 lateral mass on the left, C3 vertebral body to the left, small focus on the right at C4 vertebral body also shows sclerosis., Some sclerotic foci also present at the base of skull IMPRESSION: No significant abnormality is seen within the vasculature to suggest acute cerebral vasc ular accident, consider MRI for additional evaluation as indicated. Sclerotic areas is noted within t he spine, consider bone scan, metastatic disease not excluded. There is underlying degenerative disc disease.. NASCET criteria was used in interpretation of this exam?
[2021-05-22 12:13] LABS: Glucose,Whole Blood 74 mg/dL (75-99)
[2021-05-22] MEDS: NOREPINEPHRINE 32 MG in SODIUM CHLORIDE 0.9% 218 ML IV SCH (14:38)
--- NOTE | 2021-05-22 14:44 | P.CNNES ---
History of Present Illness Consult date: 05/22/21 Requesting physician: Gumaro Flores Reason for Consult: left sided flaccid History of Present Illness: This is a 65-year-old gentleman with medical history of hypertension, diabetes melitus, hyperlipidemia, chronic kidney insufficiency, history of liver cirrhosis, heart failure, prostate cancer, sleep apnea on CPAP who was transferred from [facility] to our facility on 05/21/2021 or acute renal failure and hyperkalemia. Neurology is consulted for left-sided weakness. History was obtained from medical records as well as the patient nurse. Per the ICU nurse he completed his dialysis today at 5am. And when the the ICU AM nurse examined the patient today (05/22/2021) she noticed that the patient had the left-sided the was flaccid and slurring speech but unknown last normal. As a result a stroke code was activated. Per the nurse the patient has ascites. Some other workup in hospital consisted of: Most recent vital is a blood pressure of 96/63, heart rate of 95, respiratory of 14, last temperature recorded as 97.8 Fahrenheit axillary and pulse ox of 96% on 4 L of nasal cannula. In this hospital stay the patient has been afebrile. During his hospital stay the patient's blood pressure was as low as 62/37. Also had the blood pressure noted in the 80s systolic and diastolic in the 40s to 60s . Patient is on Levothroid. Initial white blood cells 11.8 thousand and the most recent is 22.3. Sodium is 135, creatinine is 3.39, glucose is a 36 noted on today's serum glucose at 6:26 and the POC glucose 51. Patient had the another repeated the POC glucose of 53 at 9:34 AM today. Initial Creatnine 4.23. Calcium 7.0, magnesium 2.0, AST 14, ALT of 8. Urinalysis seems unlikely of urinary tract infection. Coronavirus PCR was not detected that. CT of the head is reported as age-related changes of atrophy and chronic ischemia. CTA of head and neck: Is reported as no significant abnormality is seen with the vasculature to suggest acute cerebral vascular accident, consider MRI for additional evaluation as indicated. Sclerotic area is noted within the spine, consider bone scan, metastatic disease not excluded. There is underlying degenerative disc disease. NO IV tpa since unknown last normal (per community center coordinator (Hattie), she spoke with the ED nurse and possibly they stated that the patient presented with left- sided weakness from the outside hospital). No intervention. Review of Systems Review of system is limited and apparent positive and negative as per HPI. Past Medical History Past Medical History: Cancer, Heart Failure, Diabetes Mellitus, Deep Vein Thrombosis (DVT), GERD/Reflux, Hyperlipidemia, Hypertension, Prostate Disorder, Sleep Apnea/CPAP/BIPAP Additional Past Medical History / Comment(s): varicose veins, sleep apnea hx - corrected by surgery, hx prostate cancer History of Any Multi-Drug Resistant Organisms: None Reported Past Surgical History: Orthopedic Surgery, Prostate Surgery, Tonsillectomy Additional Past Surgical History / Comment(s): surgery for sleep apnea, left hand carpal tunnel Past Anesthesia/Blood Transfusion Reactions: No Reported Reaction Past Psychological History: No Psychological Hx Reported Smoking Status: Former smoker Past Alcohol Use History: Occasional Past Drug Use History: None Reported - Past Family History Mother Family Medical History: No Reported History Medications and Allergies Home Medications Medication Instructions Recorded Confirmed Type Aspirin [Adult Low Dose Aspirin EC] 81 mg PO DAILY@0900 02/13/17 05/21/21 History metFORMIN HCL [Glucophage] 1,000 mg PO BID@0900,1700 02/13/17 05/21/21 History Clopidogrel [Plavix] 75 mg PO DAILY@0900 12/24/20 05/21/21 History Cyanocobalamin (Vitamin B-12) 1,000 mcg PO DAILY@0900 03/17/21 05/21/21 History [Vitamin B-12] Acetaminophen Tab [Tylenol] 650 mg PO Q6HR PRN tab 03/20/21 05/21/21 Rx Lansoprazole [Prevacid] 15 mg PO DAILY@0600 04/25/21 05/21/21 History Sodium Bicarbonate Tab 650 mg PO Q12H PRN 04/25/21 05/21/21 History Atorvastatin Calcium [Lipitor] 20 mg PO HS@2100 05/21/21 05/21/21 History Docusate [Colace] 100 mg PO DAILY@0900 05/21/21 05/21/21 History Furosemide [Lasix] 40 mg PO BID@0900,1700 05/21/21 05/21/21 History HYDROcodone/APAP 5-325MG [[place] 1 tab PO Q6HR PRN 05/21/21 05/21/21 History 5-325] Insulin Glargine,Hum.rec.anlog 20 units SQ BID@0900,2100 05/21/21 05/21/21 History [Semglee Pen] Magnesium Oxide [Mag-Ox] 400 mg PO BID@0900,1700 05/21/21 05/21/21 History Spironolactone [Aldactone] 50 mg PO DAILY@0900 05/21/21 05/21/21 History Thiamine [Vitamin B-1] 200 mg PO DAILY@0900 05/21/21 05/21/21 History Allergies Allergy/AdvReac Type Severity Reaction Status Date / Time No Known Allergies Allergy Verified 05/21/21 21:08 Physical Examination - Vital Signs Vital Signs: Vital Signs Temp Pulse Resp BP Pulse Ox 05/22/21 12:15 95 14 96/63 96 05/22/21 12:00 97.8 F 87 16 113/35 99 05/22/21 11:45 93 16 96/61 99 05/22/21 11:30 92 16 105/66 100 05/22/21 11:15 95 17 109/66 100 05/22/21 11:00 92 16 107/66 98 05/22/21 10:30 88 16 109/77 98 05/22/21 10:06 97.3 F L 90 20 101/87 97 05/22/21 09:47 97.5 F L 95 18 111/83 96 05/22/21 08:00 97.8 F 90 18 102/65 96 05/22/21 06:32 96 18 98/68 97 05/22/21 06:02 97 18 106/67 96 05/22/21 05:37 101 H 15 87/62 96 05/22/21 04:05 103 H 18 92/54 93 L 05/21/21 23:00 142 H 18 62/37 05/21/21 22:53 90 20 87/46 05/21/21 22:40 83/63 05/21/21 22:17 103 H 20 109/71 94 L 05/21/21 22:15 97 18 109/79 97 05/21/21 21:38 96 18 89/57 94 L 05/21/21 20:20 131 H 18 05/21/21 20:12 130 H 05/21/21 20:01 92 05/21/21 20:00 90 18 131/83 95 05/21/21 19:45 84/57 05/21/21 19:25 73 18 99/69 96 05/21/21 19:00 76 18 130/85 05/21/21 17:48 97.6 F 81 18 119/75 99 Intake and Output 05/21/21 05/22/21 05/22/21 22:59 06:59 14:59 Intake Total 48.389 546.170 Output Total 0 0 Balance 48.389 546.170 Intake: Intake, IV Titration 48.389 546.170 Amount Dextrose 10% in Water 1, 50 000 ml @ 25 mls/hr IV . Q24H LESLIE Rx#:[id number] Norepinephrine 4 mg In 48.389 396.170 Sodium Chloride 0.9% 250 ml @ Per Protocol IV .Q0M PRN Rx#:[id number] Sodium Chloride 0.9% 1, 100 000 ml @ 50 mls/hr IV . Q20H LESLIE Rx#:[id number] Output: Urine 0 Hemodialysis 0 Other: Weight 90.718 kg GENERAL: The patient is lying in bed and is not in acute distress. CHEST: The heart rate is regular rate rhythm. No murmurs to auscultation. No carotid bruit bilaterally. LUNG: Clear to auscultation bilaterally no wheezing noted throughout. Not labored breathing. ABDOMEN/GI: Has abdominal distention with positive ascites. INTEGUMENTARY: Has bilateral lower extremity edema 2+ Has discoloartion of the left large toe and digit digit and cold to touch over the left foot. NEUROLOGICAL: Higher mental function: The patient is drowsy but is awakeable to voice. Is oriented to self and stated he is in the hospital but does not know the name of hospital. He correctly stated the year is 2020 but stated the month is June. He is able to name objects correctly (pen, watch and glasses). Patient is following simple commands. No aphasia and no neglect. Cranial nerves: The pupils are round, equal and reactive to light. Visual huang are full to confrontation throughout. Extraocular movement is intact no nystagmus is noted. Facial sensation is decreased to touch over the entire left side. The facial strength is normal throughout. Hearing is midly decreased bilaterally to hand rub. Tongue is midline and moved [id number] without any difficulty. Mild to moderate dysarthria is noted. Motor: Gait is deferred. The strength is able to lift bilateral upper extremities above gravity (right strength > left upper extremity). There is no drift over the left upper extremity. The right lower extremity has dorsiflexion and plantarflexion of the ankle and wiggle toes. No movement is noted over the left lower extremity. Normal tone and bulk. Cerebellum: Hard to assess because of cooperation. Sensation: Sensation is decreased to touch over the entire left side. Reflexes (right/left): 1+ throughout. While the lower is 0. Plantars are downgoing bilaterally. Results - Laboratory Findings CBC and BMP: 05/22/21 06:26 05/22/21 06:26 Abnormal Lab Findings: Abnormal Labs 05/21/21 05/21/21 05/21/21 18:33 18:33 18:33 WBC 11.8 H RBC 6.00 H RDW 15.7 H Neutrophils # 10.0 H Monocytes # Sodium 127 L Potassium 7.4 H* Carbon Dioxide 13 L BUN 115 H* Creatinine 4.23 H Glucose 46 L* POC Glucose (mg/dL) Plasma Lactic Acid Oz Calcium 7.7 L Magnesium 2.4 H AST 15 L Troponin I 0.187 H* Total Protein 6.0 L Albumin 2.8 L Urine Protein Urine Blood Urine RBC Urine Bacteria Hyaline Casts Urine Mucus Urine Yeast (Budding) 05/21/21 05/21/21 05/21/21 18:33 18:34 20:00 WBC RBC RDW Neutrophils # Monocytes # Sodium Potassium Carbon Dioxide BUN Creatinine Glucose POC Glucose (mg/dL) 108 H Plasma Lactic Acid Oz 2.6 H* Calcium Magnesium AST Troponin I Total Protein Albumin Urine Protein 1+ H Urine Blood Moderate H Urine RBC 30 H Urine Bacteria Few H Hyaline Casts 134 H Urine Mucus Occasional H Urine Yeast (Budding) Occasional H 05/21/21 05/21/21 05/21/21 21:26 21:26 22:16 WBC RBC RDW Neutrophils # Monocytes # Sodium Potassium 6.9 H* Carbon Dioxide BUN Creatinine Glucose POC Glucose (mg/dL) Plasma Lactic Acid Oz 4.4 H* Calcium Magnesium AST Troponin I 0.181 H* Total Protein Albumin Urine Protein Urine Blood Urine RBC Urine Bacteria Hyaline Casts Urine Mucus Urine Yeast (Budding) 05/22/21 05/22/21 05/22/21 01:05 06:26 06:26 WBC 22.3 H RBC RDW 15.6 H Neutrophils # 18.9 H Monocytes # 2.0 H Sodium Potassium Carbon Dioxide BUN Creatinine Glucose POC Glucose (mg/dL) Plasma Lactic Acid Oz 6.2 H* Calcium Magnesium AST Troponin I 0.296 H* Total Protein Albumin Urine Protein Urine Blood Urine RBC Urine Bacteria Hyaline Casts Urine Mucus Urine Yeast (Budding) 05/22/21 05/22/21 05/22/21 06:26 06:26 07:23 WBC RBC RDW Neutrophils # Monocytes # Sodium 135 L Potassium 5.3 H Carbon Dioxide 21 L BUN 93 H Creatinine 3.39 H Glucose 36 L* POC Glucose (mg/dL) 51 L Plasma Lactic Acid Oz 3.2 H* Calcium 7.0 L Magnesium AST 14 L Troponin I Total Protein 5.2 L Albumin 2.4 L Urine Protein Urine Blood Urine RBC Urine Bacteria Hyaline Casts Urine Mucus Urine Yeast (Budding) 05/22/21 05/22/21 05/22/21 07:45 09:34 11:33 WBC RBC RDW Neutrophils # Monocytes # Sodium Potassium Carbon Dioxide BUN Creatinine Glucose POC Glucose (mg/dL) 63 L 53 L Plasma Lactic Acid Oz 3.6 H* Calcium Magnesium AST Troponin I Total Protein Albumin Urine Protein Urine Blood Urine RBC Urine Bacteria Hyaline Casts Urine Mucus Urine Yeast (Budding) 05/22/21 12:10 WBC RBC RDW Neutrophils # Monocytes # Sodium Potassium Carbon Dioxide BUN Creatinine Glucose POC Glucose (mg/dL) 74 L Plasma Lactic Acid Oz Calcium Magnesium AST Troponin I Total Protein Albumin Urine Protein Urine Blood Urine RBC Urine Bacteria Hyaline Casts Urine Mucus Urine Yeast (Budding) Assessment and Plan Assessment: * Altered mental status likely due to metabolic encephalopathy (hypoglycemia, acute renal failure, hypovolemia)--mentation improving. * Left sided weakness (but on examination also has bilateral lower extremity weakness (on the left lower extremity is hemiplegic while right is significant hemiparesis), left upper extremity heiparesis, dysarthria, decrease sensation to touch on left): Possibly acute to subacute ischemic stroke. No IV tpa since unknown last normal (it seems possibly he presented from outside facility with left sided weakness per nursing staff). Another possiblity is hypoglycemia which can mimic stroke * Hypoglycemia (as low as 36) * Acute hypotension (as low as 62/37) on Levophed * Acute renal failure status post hemodialysis today * Bluish discoloration over the left foot and cold to touch. Rule out peripheral arterial disease * History of type 2 diabetes * History of liver cirrhosis and has ascites * Ischemic cardiomyopathy with ejection fraction of 40% * Hypertension and on the this admission the presentation has hypotension * Hyperlipidemia * History of chronic kidney stage III disease * History of prostate cancer Plan: I ordered MRI Brain and C-spine. I notified the nurse to start ASA 81 mg if patient passes swallow evaluation (if fails will consider ASA 300mg suppository). I will hold off on the any statins for now because of patient history of cirrhosis and current ascites. Ordered 2-D echo, lipid panel, TSH and hemoglobin A1c Every hour neuro checks PT, OT, HEADWAITRESS are consulted Please avoid any further hypoglycemia or hypotension and we'll defer the management to the primary as well as ICU team Nephrology is on board Consider vascular surgery team to rule out peripheral arterial disease of the left foot. We'll defer the rest of medical management to the primary ICU team. For DVT prophylaxis: Will defer management to primary and ICU team. The plan is discussed with the patient and his nurse. Thank you for the consultation. Brent Pascual M.D. Neuro-hospitalist Time with Patient: Greater than 30
[2021-05-22 16:02] LABS: Glucose,Whole Blood 75 mg/dL (75-99)
[2021-05-22] MEDS: SODIUM CHLORIDE 0.9% 250 ML IV SCH ×2 (18:07→18:08)
--- NOTE | 2021-05-22 18:23 | P.HPIM ---
History of Present Illness H&P Date: 05/22/21 Chief Complaint: Weakness/fatigue 65-year-old male transferred from [facility] for acute renal failure and hyperkalemia. Patient also had questionable pneumonia and was Mr. to antibiotics at the outside hospital. He states that over the last few days he has been feeling more fatigued which prompted him to present to the emergency department at the outside hospital. He does have a history of CK D, he does have a history also of hyperkalemia which was previously treated by Dr. Chen, which is why transfer was accepted. He is not on dialysis and never has been on dialysis. Does have a history of CABG, diabetes, hypertension. He states he was having generalized weakness for multiple days prior to arrival. He denies any cough, shortness of breath, chest pain, abdominal pain, nausea, vomiting, diarrhea. States he did notice decreased urine output. Prior episode of renal failure was secondary to obstruction per outside hospital. They placed a Blanco catheter and had a small amount of urine produced. He presents emergency department for further evaluation. At the outside hospital he did receive one round of hyper healing a cocktail including Kayexalate, calcium, bicarbonate, insulin, D50, albuterol. Patient does have a history of a chronic left bundle branch block. Current lab results reveal a white count of 22.3. Hemoglobin 14.3. Sodium 135. Potassium 5.3. Bicarb 21. BUN 93. Creatinine 3.39. Blood glucose 36, lactic acid 3.2. Troponin 0.18, 0.29. Urinalysis with moderate blood and 1+ protein and few bacteria. Salguero virus by PCR not detected. Hepatitis B screen negative. Patient is admitted to ICU The patient is arousable answering questions appropriately but moaning. He denies any pain. He is maintaining O2 saturations in the mid 90s on 4 L nasal cannula. He is currently afebrile. Chest x-ray reveals poor expiratory effort with infiltrate and atelectasis of the left lower lobe. Abdominal ultrasound reveals fluid in all 4 quadrants with a history of previous ascites and paracentesis. Computed tomography scan of the brain revealed age-related atrophy with chronic ischemia. Urology to see patient and make further recommendations Review of Systems REVIEW OF SYSTEMS: CONSTITUTIONAL: No fever, no malaise, no fatigue. HEENT: No recent visual problems or hearing problems. Denied any sore throat. CARDIOVASCULAR: No chest pain, orthopnea, PND, no palpitations, no syncope. PULMONARY: No shortness of breath, no cough, no hemoptysis. GASTROINTESTINAL: No diarrhea, no nausea, no vomiting, no abdominal pain. NEUROLOGICAL: Left-sided weakness. HEMATOLOGICAL: Denies any bleeding or petechiae. GENITOURINARY: Denies any burning micturition, frequency, or urgency. MUSCULOSKELETAL/RHEUMATOLOGICAL: Denies any joint pain, swelling, or any muscle pain. ENDOCRINE: Denies any polyuria or polydipsia. The rest of the 14-point review of systems is negative. Past Medical History Past Medical History: Cancer, Heart Failure, Diabetes Mellitus, Deep Vein Thrombosis (DVT), GERD/Reflux, Hyperlipidemia, Hypertension, Prostate Disorder, Sleep Apnea/CPAP/BIPAP Additional Past Medical History / Comment(s): varicose veins, sleep apnea hx - corrected by surgery, hx prostate cancer History of Any Multi-Drug Resistant Organisms: None Reported Past Surgical History: Orthopedic Surgery, Prostate Surgery, Tonsillectomy Additional Past Surgical History / Comment(s): surgery for sleep apnea, left hand carpal tunnel Past Anesthesia/Blood Transfusion Reactions: No Reported Reaction Past Psychological History: No Psychological Hx Reported Smoking Status: Former smoker Past Alcohol Use History: Occasional Past Drug Use History: None Reported - Past Family History Mother Family Medical History: No Reported History Father Family Medical History: Cancer Additional Family Medical History / Comment(s): Father is . He had heart problems, lung cancer and was a former smoker. Medications and Allergies Home Medications Medication Instructions Recorded Confirmed Type Aspirin [Adult Low Dose Aspirin EC] 81 mg PO DAILY@0900 02/13/17 05/21/21 History metFORMIN HCL [Glucophage] 1,000 mg PO BID@0900,1700 02/13/17 05/21/21 History Clopidogrel [Plavix] 75 mg PO DAILY@0912/24/20 05/21/21 History Cyanocobalamin (Vitamin B-12) 1,000 mcg PO DAILY@0900 03/17/21 05/21/21 History [Vitamin B-12] Acetaminophen Tab [Tylenol] 650 mg PO Q6HR PRN tab 03/20/21 05/21/21 Rx Lansoprazole [Prevacid] 15 mg PO DAILY@0600 04/25/21 05/21/21 History Sodium Bicarbonate Tab 650 mg PO Q12H PRN 04/25/21 05/21/21 History Atorvastatin Calcium [Lipitor] 20 mg PO HS@2100 05/21/21 05/21/21 History Docusate [Colace] 100 mg PO DAILY@0900 05/21/21 05/21/21 History Furosemide [Lasix] 40 mg PO BID@0900,1700 05/21/21 05/21/21 History HYDROcodone/APAP 5-325MG [E[place]ora 1 tab PO Q6HR PRN 05/21/21 05/21/21 History 5-325] Insulin Glargine,Hum.rec.anlog 20 units SQ BID@0900,2100 05/21/21 05/21/21 History [Semglee Pen] Magnesium Oxide [Mag-Ox] 400 mg PO BID@0900,1700 05/21/21 05/21/21 History Spironolactone [Aldactone] 50 mg PO DAILY@0900 05/21/21 05/21/21 History Thiamine [Vitamin B-1] 200 mg PO DAILY@0900 05/21/21 05/21/21 History Allergies Allergy/AdvReac Type Severity Reaction Status Date / Time No Known Allergies Allergy Verified 05/21/21 21:08 Physical Exam Vitals: Vital Signs Temp Pulse Resp BP Pulse Ox 05/22/21 10:30 88 16 109/77 98 05/22/21 10:06 97.3 F L 90 20 101/87 97 05/22/21 09:47 97.5 F L 95 18 111/83 96 05/22/21 08:00 97.8 F 90 18 102/65 96 05/22/21 06:32 96 18 98/68 97 05/22/21 06:02 97 18 106/67 96 05/22/21 05:37 101 H 15 87/62 96 05/22/21 04:05 103 H 18 92/54 93 L 05/21/21 23:00 142 H 18 62/37 05/21/21 22:53 90 20 87/46 05/21/21 22:40 83/63 05/21/21 22:17 103 H 20 109/71 94 L 05/21/21 22:15 97 18 109/79 97 05/21/21 21:38 96 18 89/57 94 L 05/21/21 20:20 131 H 18 05/21/21 20:12 130 H 05/21/21 20:01 92 05/21/21 20:00 90 18 131/83 95 05/21/21 19:45 84/57 05/21/21 19:25 73 18 99/69 96 05/21/21 19:00 76 18 130/85 05/21/21 17:48 97.6 F 81 18 119/75 99 Intake and Output 05/21/21 05/22/21 05/22/21 22:59 06:59 14:59 Intake Total 48.389 280.611 Output Total 0 0 Balance 48.389 280.611 Intake: Intake, IV Titration 48.389 280.611 Amount Dextrose 10% in Water 1, 25 000 ml @ 25 mls/hr IV . Q24H LESLIE Rx#:[id number] Norepinephrine 4 mg In 48.389 205.611 Sodium Chloride 0.9% 250 ml @ Per Protocol IV .Q0M PRN Rx#:[id number] Sodium Chloride 0.9% 1, 50 000 ml @ 50 mls/hr IV . Q20H LESLIE Rx#:[id number] Output: Urine 0 Hemodialysis 0 Other: Weight 90.718 kg GENERAL EXAM: Arousable to verbal stimulation HEAD: Normocephalic. EYES: Normal reaction of pupils, equal size. NECK: No masses, no JVD. CHEST: No chest wall deformity. LUNGS: Equal air entry with crackles in the left lung base. CVS: S1 and S2 normal with no audible murmur, regular rhythm. ABDOMEN: No hepatosplenomegaly, normal bowel sounds, no guarding or rigidity. SPINE: No scoliosis or deformity SKIN: No rashes CENTRAL NERVOUS SYSTEM: Weakness on 4 extremities more so on the left side. EXTREMITIES: Right femoral triple-lumen hemodialysis catheter in place. There is no peripheral edema. No clubbing, no cyanosis. Results CBC & Chem 7: 05/22/21 06:26 05/22/21 06:26 Labs: Abnormal Lab Results - Last 24 Hours (Table) 05/21/21 05/21/21 05/21/21 Range/Units 18:33 18:33 18:33 WBC 11.8 H (3.8-10.6) k/uL RBC 6.00 H (4.30-5.90) m/uL RDW 15.7 H (11.5-15.5) % Neutrophils # 10.0 H (1.3-7.7) k/uL Monocytes # (0-1.0) k/uL Sodium 127 L (137-145) mmol/L Potassium 7.4 H* (3.5-5.1) mmol/L Carbon Dioxide 13 L (22-30) mmol/L BUN 115 H* (9-20) mg/dL Creatinine 4.23 H (0.66-1.25) mg/dL Glucose 46 L* (74-99) mg/dL POC Glucose (mg/dL) (75-99) mg/dL Plasma Lactic Acid Oz (0.7-2.0) mmol/L Calcium 7.7 L (8.4-10.2) mg/dL Magnesium 2.4 H (1.6-2.3) mg/dL AST 15 L (17-59) U/L Troponin I 0.187 H* (0.000-0.034) ng/mL Total Protein 6.0 L (6.3-8.2) g/dL Albumin 2.8 L (3.5-5.0) g/dL Urine Protein (Negative) Urine Blood (Negative) Urine RBC (0-5) /hpf Urine Bacteria (None) /hpf Hyaline Casts (0-2) /lpf Urine Mucus (None) /hpf Urine Yeast (Budding) (None) /hpf 05/21/21 05/21/21 05/21/21 Range/Units 18:33 18:34 20:00 WBC (3.8-10.6) k/uL RBC (4.30-5.90) m/uL RDW (11.5-15.5) % Neutrophils # (1.3-7.7) k/uL Monocytes # (0-1.0) k/uL Sodium (137-145) mmol/L Potassium (3.5-5.1) mmol/L Carbon Dioxide (22-30) mmol/L BUN (9-20) mg/dL Creatinine (0.66-1.25) mg/dL Glucose (74-99) mg/dL POC Glucose (mg/dL) 108 H (75-99) mg/dL Plasma Lactic Acid Oz 2.6 H* (0.7-2.0) mmol/L Calcium (8.4-10.2) mg/dL Magnesium (1.6-2.3) mg/dL AST (17-59) U/L Troponin I (0.000-0.034) ng/mL Total Protein (6.3-8.2) g/dL Albumin (3.5-5.0) g/dL Urine Protein 1+ H (Negative) Urine Blood Moderate H (Negative) Urine RBC 30 H (0-5) /hpf Urine Bacteria Few H (None) /hpf Hyaline Casts 134 H (0-2) /lpf Urine Mucus Occasional H (None) /hpf Urine Yeast (Budding) Occasional H (None) /hpf 05/21/21 05/21/21 05/21/21 Range/Units 21:26 21:26 22:16 WBC (3.8-10.6) k/uL RBC (4.30-5.90) m/uL RDW (11.5-15.5) % Neutrophils # (1.3-7.7) k/uL Monocytes # (0-1.0) k/uL Sodium (137-145) mmol/L Potassium 6.9 H* (3.5-5.1) mmol/L Carbon Dioxide (22-30) mmol/L BUN (9-20) mg/dL Creatinine (0.66-1.25) mg/dL Glucose (74-99) mg/dL POC Glucose (mg/dL) (75-99) mg/dL Plasma Lactic Acid Oz 4.4 H* (0.7-2.0) mmol/L Calcium (8.4-10.2) mg/dL Magnesium (1.6-2.3) mg/dL AST (17-59) U/L Troponin I 0.181 H* (0.000-0.034) ng/mL Total Protein (6.3-8.2) g/dL Albumin (3.5-5.0) g/dL Urine Protein (Negative) Urine Blood (Negative) Urine RBC (0-5) /hpf Urine Bacteria (None) /hpf Hyaline Casts (0-2) /lpf Urine Mucus (None) /hpf Urine Yeast (Budding) (None) /hpf 05/22/21 05/22/2105/22/21 Range/Units 01:05 06:26 06:26 WBC 22.3 H (3.8-10.6) k/uL RBC (4.30-5.90) m/uL RDW 15.6 H (11.5-15.5) % Neutrophils # 18.9 H (1.3-7.7) k/uL Monocytes # 2.0 H (0-1.0) k/uL Sodium (137-145) mmol/L Potassium (3.5-5.1) mmol/L Carbon Dioxide (22-30) mmol/L BUN (9-20) mg/dL Creatinine (0.66-1.25) mg/dL Glucose (74-99) mg/dL POC Glucose (mg/dL) (75-99) mg/dL Plasma Lactic Acid Oz 6.2 H* (0.7-2.0) mmol/L Calcium (8.4-10.2) mg/dL Magnesium (1.6-2.3) mg/dL AST (17-59) U/L Troponin I 0.296 H* (0.000-0.034) ng/mL Total Protein (6.3-8.2) g/dL Albumin (3.5-5.0) g/dL Urine Protein (Negative) Urine Blood (Negative) Urine RBC (0-5) /hpf Urine Bacteria (None) /hpf Hyaline Casts (0-2) /lpf Urine Mucus (None) /hpf Urine Yeast (Budding) (None) /hpf 05/22/21 05/22/21 05/22/21 Range/Units 06:26 06:26 07:23 WBC (3.8-10.6) k/uL RBC (4.30-5.90) m/uL RDW (11.5-15.5) % Neutrophils # (1.3-7.7) k/uL Monocytes # (0-1.0) k/uL Sodium 135 L (137-145) mmol/L Potassium 5.3 H (3.5-5.1) mmol/L Carbon Dioxide 21 L (22-30) mmol/L BUN 93 H (9-20) mg/dL Creatinine 3.39 H (0.66-1.25) mg/dL Glucose 36 L* (74-99) mg/dL POC Glucose (mg/dL) 51 L (75-99) mg/dL Plasma Lactic Acid Oz 3.2 H* (0.7-2.0) mmol/L Calcium 7.0 L (8.4-10.2) mg/dL Magnesium (1.6-2.3) mg/dL AST 14 L (17-59) U/L Troponin I (0.000-0.034) ng/mL Total Protein 5.2 L (6.3-8.2) g/dL Albumin 2.4 L (3.5-5.0) g/dL Urine Protein (Negative) Urine Blood (Negative) Urine RBC (0-5) /hpf Urine Bacteria (None) /hpf Hyaline Casts (0-2) /lpf Urine Mucus (None) /hpf Urine Yeast (Budding) (None) /hpf 05/22/21 05/22/21 Range/Units 07:45 09:34 WBC (3.8-10.6) k/uL RBC (4.30-5.90) m/uL RDW (11.5-15.5) % Neutrophils # (1.3-7.7) k/uL Monocytes # (0-1.0) k/uL Sodium (137-145) mmol/L Potassium (3.5-5.1) mmol/L Carbon Dioxide (22-30) mmol/L BUN (9-20) mg/dL Creatinine (0.66-1.25) mg/dL Glucose (74-99) mg/dL POC Glucose (mg/dL) 63 L 53 L (75-99) mg/dL Plasma Lactic Acid Oz (0.7-2.0) mmol/L Calcium (8.4-10.2) mg/dL Magnesium (1.6-2.3) mg/dL AST (17-59) U/L Troponin I (0.000-0.034) ng/mL Total Protein (6.3-8.2) g/dL Albumin (3.5-5.0) g/dL Urine Protein (Negative) Urine Blood (Negative) Urine RBC (0-5) /hpf Urine Bacteria (None) /hpf Hyaline Casts (0-2) /lpf Urine Mucus (None) /hpf Urine Yeast (Budding) (None) /hpf Assessment and Plan Assessment: 1. Acute renal failure on CK D stage IV - Creatinine at time of admission was 4.2; patient had 1 session of hemodialysis with resultant creatinine of 3.39 - Nephrology on board with plans to repeat hemodialysis tomorrow morning 2. Hyperkalemia; related to acute renal failure; patient was treated with hyperkalemia package in ED and repeat potassium level is 5.3 down from 7.4 in ED; we will monitor strict failure function and electrolytes. Further recommendations pending clinical course 3. Left hemiplegia; possibly acute versus subacute CVA; neurology on board and patient is recommended MRI - CT of the head is reported as age-related changes of atrophy and chronic ischemia. CTA of head and neck: Is reported as no significant abnormality is seen with the vasculature to suggest acute cerebral vascular accident, consider MRI for additional evaluation as indicated. Patient remains on aspirin 81 mg daily; statins are not recommended due to history of liver cirrhosis and ascites - We will order TSH, HbA1c, lipid panel and 2-D echo - PT/OT/QUALITY ASSURANCE PRACTICE MANAGER consulted 4. Sclerotic area within cervical spine; seen on evaluation of cervical spine with CT, metastatic disease is not excluded and bone scan is recommended 5. Hypotension/history of hypertension; likely multifactorial; patient remains on norepinephrine with plans to wean off as able 6. Hypoglycemia; patient does have history of diabetes mellitus type 2; currently on D10 at a rate of 25 mL an hour 7. CAD/ischemic cardiomyopathy; patient has an ejection fraction of 40%; history of CABG in the past 8. Hyperlipidemia; statin therapy not recommended at this time. History of liver cirrhosis and ascites; lipid profile is ordered DVT prophylaxis; SCDs CODE STATUS; full code per discussion with patient's daughter Taylor; family is planning to drive into town to visit patient and will make further decisions
[2021-05-22 19:59] LABS: African American GFR (CKD) 20 (>60 ml/min/1.73 sqM); Anion Gap 13 mmol/L; Blood Urea Nitrogen 85 mg/dL (9-20); Calcium 6.6 mg/dL (8.4-10.2); Carbon Dioxide 22 mmol/L (22-30); Chloride 100 mmol/L (98-107); Glucose 79 mg/dL (74-99); Non-African American GFR(CKD) 17 (>60 ml/min/1.73 sqM); Potassium 5.1 mmol/L (3.5-5.1); Sodium 135 mmol/L (137-145)
[2021-05-22] MEDS ORDERED: AMIODARONE IN DEXTROSE,ISO-OSM 360 MG/200 ML PLAST..BAG IV ONE (20:00)
[2021-05-22] MEDS ORDERED: DEXTROSE 5% IN WATER 100 ML with AMIODARONE 150 MG IV ONE (20:00)
[2021-05-22] MEDS ORDERED: AMIODARONE IN DEXTROSE,ISO-OSM 150 MG/100 ML PLAST..BAG IV ONE (20:00)
[2021-05-22] MEDS ORDERED: AMIODARONE 360 MG in DEXTROSE 5% IN WATER 200 ML IV ONE ×2 (20:10)
[2021-05-22] MEDS: ASPIRIN 300 MG SUPP RECTAL SCH (22:19)
[2021-05-23 00:46] LABS: Glucose,Whole Blood 132 mg/dL (75-99)
[2021-05-23] MEDS: NOREPINEPHRINE 32 MG in SODIUM CHLORIDE 0.9% 218 ML IV SCH ×2 (02:19→20:36)
[2021-05-23] MEDS: AMIODARONE 450 MG in DEXTROSE 5% IN WATER 250 ML IV SCH ×4 (02:51→18:59)
[2021-05-23 04:18] LABS: Glucose,Whole Blood 139 mg/dL (75-99)
[2021-05-23] MEDS: SODIUM CHLORIDE 0.9% 1,000 ML IV SCH (04:56)
[2021-05-23 05:07] LABS: Chol/HDL Ratio 2.06 Ratio; LDL Cholesterol,Calculated 19.8 mg/dL (0.0-131.0); VLDL Calculation 15.96 mg/dL (5.00-40.00)
[2021-05-23 05:54] LABS: Basophils % (A) 0 %; Eosinophils % (A) 0 %; HCT 47.8 % (39.0-53.0); HGB 14.6 gm/dL (13.0-17.5); Hypochromasia Marked; Lymphocytes # (A) 1.1 k/uL (1.0-4.8); Lymphocytes % (A) 7 %; MCH 26.4 pg (25.0-35.0); MCHC 30.5 g/dL (31.0-37.0); MCV 86.6 fL (80.0-100.0); Mean Platelet Volume 8.3; Monocytes # (A) 1.1 k/uL (0-1.0); Monocytes % (A) 7 %; Neutrophils # (A) 13.6 k/uL (1.3-7.7); Neutrophils % (A) 85 %; Platelet Count 146 k/uL (150-450); RBC 5.52 m/uL (4.30-5.90); RDW 15.8 % (11.5-15.5)
[2021-05-23 06:00] LABS: Calcium 6.6 mg/dL (8.4-10.2); Total Bilirubin 0.6 mg/dL (0.2-1.3)
[2021-05-23 06:17] LABS: Albumin 2.1 g/dL (3.5-5.0); Potassium 5.7 mmol/L (3.5-5.1); Total Protein 5.1 g/dL (6.3-8.2)
--- NOTE | 2021-05-23 07:18 | P.CRDCN ---
History of Present Illness Consult date: 05/23/21 Chief complaint: Generalized weakness History of present illness: This is a very pleasant 65-year-old gentleman who was requested to see in the i ntensive care unit for further evaluation of atrial fibrillation which seems to be new diagnosis of the patient. The patient does have underlying history of coronary artery disease with prior coronary artery bypass grafting with unknown details at this point according to the patient the surgery was performed at [facility]. Beside that he does have diabetes and hypertension and dyslipidemia. He also does have history of chronic kidney disease. The patient initially presented in to outside hospital complaining of generalized weakness and fatigue for the last few days. He was tested negative for COVID-19 infection and he did not have any symptoms of fever or chills. The patient was found to be in acute on chronic renal failure and also he was hyperkalemic. For that reason the patient was transferred to the hospital here at [facility]. Beside that the patient was experiencing symptoms of left-sided weakness. Computed tomography scan of the brain was performed and given to be unremarkable and the neurology service was consulted and the patient is under possible diagnosis of stroke. We consulted to see the patient mainly because of new onset atrial fibrillation with RVR. Subsequently the patient was started on amiodarone IV with bolus and drip and subsequently he converted to normal sinus mechanism but then he came back into atrial fibrillation with heart rate around 100 beats per minutes. Hemodynamically he is stable and not requiring any vasopressors. He reports no symptoms of chest pain or chest discomfort nor shortness of breath no feeling of heart racing or fluttering and no prior loss of consciousness or syncope. Workup was performed including chest x-ray showed possible pneumonia. The troponin came in to be mildly elevated. EKG showed sinus rhythm and subsequently atrial fibrillation with LBBB. Computed tomography scan of the pain came in to be unremarkable for any acute abnormalities. Nephrology service is on the case regarding the renal failure and also neurology services on the case regarding possible stroke. An echocardiogram from earlier this year revealed an ejection fraction between 40- 45%. Past Medical History Past Medical History: Cancer, Heart Failure, Diabetes Mellitus, Deep Vein Thr ombosis (DVT), GERD/Reflux, Hyperlipidemia, Hypertension, Prostate Disorder, Sleep Apnea/CPAP/BIPAP Additional Past Medical History / Comment(s): varicose veins, sleep apnea hx - corrected by surgery, hx prostate cancer History of Any Multi-Drug Resistant Organisms: None Reported Past Surgical History: Orthopedic Surgery, Prostate Surgery, Tonsillectomy Additional Past Surgical History / Comment(s): surgery for sleep apnea, left hand carpal tunnel Past Anesthesia/Blood Transfusion Reactions: No Reported Reaction Past Psychological History: No Psychological Hx Reported Smoking Status: Former smoker Past Alcohol Use History: Occasional Past Drug Use History: None Reported - Past Family History Mother Family Medical History: No Reported History Additional Family Medical History / Comment(s): Mother is 90yrs old and has heart issues. Father Family Medical History: Cancer Additional Family Medical History / Comment(s): Father is . He had heart problems, lung cancer and was a former smoker. Medications and Allergies Home Medications Medication Instructions Recorded Confirmed Type Aspirin [Adult Low Dose Aspirin EC] 81 mg PO DAILY@0900 02/13/17 05/21/21 History metFORMIN HCL [Glucophage] 1,000 mg PO BID@0900,1700 02/13/17 05/21/21 History Clopidogrel [Plavix] 75 mg PO DAILY@0900 12/24/20 05/21/21 History Cyanocobalamin (Vitamin B-12) 1,000 mcg PO DAILY@0900 03/17/21 05/21/21 History [Vitamin B-12] Acetaminophen Tab [Tylenol] 650 mg PO Q6HR PRN tab 03/20/21 05/21/21 Rx Lansoprazole [Prevacid] 15 mg PO DAILY@0600 04/25/21 05/21/21 History Sodium Bicarbonate Tab 650 mg PO Q12H PRN 04/25/21 05/21/21 History Atorvastatin Calcium [Lipitor] 20 mg PO HS@209905/21/21 05/21/21 History Docusate [Colace] 100 mg PO DAILY@0900 05/21/21 05/21/21 History Furosemide [Lasix] 40 mg PO BID@0900,1700 05/21/21 05/21/21 History HYDROcodone/APAP 5-325MG [[place] 1 tab PO Q6HR PRN 05/21/21 05/21/21 History 5-325] Insulin Glargine,Hum.rec.anlog 20 units SQ BID@0900,2100 05/21/21 05/21/21 History [Semglee Pen] Magnesium Oxide [Mag-Ox] 400 mg PO BID@0900,1700 05/21/21 05/21/21 History Spironolactone [Aldactone] 50 mg PO DAILY@0900 05/21/21 05/21/21 History Thiamine [Vitamin B-1] 200 mg PO DAILY@0900 05/21/21 05/21/21 History Allergies Allergy/AdvReac Type Severity Reaction Status Date / Time No Known Allergies Allergy Verified 05/21/21 21:08 Physical Exam Vitals: Vital Signs Temp Pulse Resp BP BP Pulse Ox 05/23/21 06:30 113 H 21 104/73 97 05/23/21 06:15 124 H 22 96/68 97 05/23/21 06:00 117 H 20 96/72 97 05/23/21 05:45 120 H 20 94/81 97 05/23/21 05:30 121 H 18 108/64 97 05/23/21 05:15 112 H 15 108/77 85 L 05/23/21 05:00 116 H 17 109/92 97 05/23/21 04:45 113 H 19 98/74 97 05/23/21 04:30 114 H 20 111/76 97 05/23/21 04:15 114 H 21 111/73 97 05/23/21 04:00 98.1 F 108 H 20 104/77 78 L 05/23/21 03:45 112 H 22 100/76 81 L 05/23/21 03:30 113 H 112/69 97 05/23/21 03:15 113 H 93/72 97 05/23/21 03:00 113 H 91/63 96 05/23/21 02:45 115 H 101/56 97 05/23/21 02:30 116 H 18 104/56 97 05/23/21 02:15 120 H 17 131/87 97 05/23/21 02:00 118 H 24 122/69 97 05/23/21 01:45 118 H 17 129/63 97 05/23/21 01:30 117 H 23 116/69 98 05/23/21 01:15 120 H 24 65/36 97 05/23/21 01:00 113 H 21 124/87 98 05/23/21 00:45 120 H 119/78 98 05/23/21 00:30 117 H 111/78 97 05/23/21 00:15 122 H 102/44 97 05/23/21 00:00 98.0 F 121 H 20 108/81 97 05/22/21 23:45 129 H 119/80 98 05/22/21 23:30 125 H 106/60 98 05/22/21 23:15 126 H 9 L 114/57 98 05/22/21 23:00 130 H 23 95/78 98 05/22/21 22:45 129 H 21 111/82 96 05/22/21 22:30 131 H 116/71 96 05/22/21 22:15 117 H 22 150/44 98 05/22/21 22:00 84 21 121/39 98 05/22/21 21:45 78 18 123/76 97 05/22/21 21:30 75 19 125/66 98 05/22/21 21:15 75 19 102/85 98 05/22/21 21:00 86 17 101/76 97 05/22/21 20:45 80 22 88/66 98 05/22/21 20:30 129 H 22 93/75 96 05/22/21 20:15 128 H 19 115/73 97 05/22/21 20:00 99.4 F 154 H 20 83/64 97 05/22/21 19:45 141 H 83/53 96 05/22/21 19:30 147 H 27 H 80/67 95 05/22/21 19:15 149 H 26 H 104/72 95 05/22/21 19:00 151 H 22 77/64 95 05/22/21 18:45 158 H 18 74/61 95 05/22/21 18:30 160 H 20 73/55 92 L 05/22/21 18:15 154 H 18 77/34 96 05/22/21 18:00 128 H 17 100/82 94 L 05/22/21 17:45 98 14 112/59 93 L 05/22/21 17:30 95 20 112/74 97 05/22/21 17:15 98 20 116/68 93 L 05/22/21 17:00 92 18 102/87 94 L 05/22/21 16:45 88 18 101/69 64/40 95 05/22/21 16:30 98 18 126/88 95 05/22/21 16:15 100 17 69/47 92 L 05/22/21 16:00 101 H 17 75/61 94 L 05/22/21 15:45 94 21 106/68 90 L 05/22/21 15:30 91 19 111/71 95 05/22/21 15:15 92 17 109/86 94 L 05/22/21 15:00 93 16 91/61 92 L 05/22/21 14:45 92 20 85/73 90 L 05/22/21 14:30 88 20 98/61 95 05/22/21 14:15 87 15 114/61 97 05/22/21 14:00 87 14 95/65 96 05/22/21 13:45 88 17 98/63 96 05/22/21 13:30 91 15 108/70 97 05/22/21 13:15 93 23 96/73 96 05/22/21 13:00 93 17 108/72 93 L 05/22/21 12:45 92 17 83/48 96 05/22/21 12:30 95 17 111/95 95 05/22/21 12:15 95 14 96/63 96 05/22/21 12:00 97.8 F 87 16 113/35 99 05/22/21 11:45 93 16 96/61 99 05/22/21 11:30 92 16 105/66 100 05/22/21 11:15 95 17 109/66 100 05/22/21 11:00 92 16 107/66 98 05/22/21 10:30 88 16 109/77 98 05/22/21 10:06 97.3 F L 90 20 101/87 97 05/22/21 09:47 97.5 F L 95 18 111/83 96 05/22/21 08:00 97.8 F 90 18 102/65 96 Intake and Output 05/22/21 05/23/21 05/23/21 22:59 06:59 14:59 Intake Total 831.311 292.096 Output Total 275 215 Balance 556.311 77.096 Intake: IV 75 195 Dextrose 10% in Water 1, 75 195 000 ml @ 25 mls/hr IV . Q24H LESLIE with Sodium Chloride 4Meq/ml Vial 153 .8 meq Rx#:[id number] Intake, IV Titration 756.311 97.096 Amount Amiodarone 360 mg In 32.222 Dextrose 5% in Water 200 ml @ 1 MG/MIN 33.333 mls/ hr IV .Q6H ONE Rx#: [id number] Dextrose 10% in Water 1, 125 000 ml @ 25 mls/hr IV . Q24H LESLIE Rx#:[id number] Norepinephrine 32 mg In 99.089 97.096 Sodium Chloride 0.9% 218 ml @ 0.05 MCG/KG/MIN 2. 126 mls/hr IV .Q24H LESLIE Rx#:[id number] Sodium Chloride 0.9% 1, 250 000 ml @ 50 mls/hr IV . Q20H LESLIE Rx#:[id number] Sodium Chloride 0.9% 250 250 ml @ 999 mls/hr IV .Q16M LESLIE Rx#:[id number] Output: Urine 175 215 Hemodialysis 100 Other: Voiding Method Indwelling Catheter Indwelling Catheter Weight 97.9 kg - Constitutional General appearance: no acute distress - Respiratory Respiratory: bilateral: diminished - Cardiovascular Rhythm: irregularly irregular Abnormal Heart Sounds: systolic murmur Results 05/23/21 04:45 05/23/21 04:45 Cardiac Enzymes 05/22/21 05/22/21 05/23/21 Range/Units 06:26 06:26 04:45 AST 14 L 43 (17-59) U/L Troponin I 0.296 H* (0.000-0.034) ng/mL Lipids 05/22/21 Range/Units 18:22 Triglycerides 79.80 (0.00-149.00) mg/dL Cholesterol 70.00 (0.00-200.00) mg/dL HDL Cholesterol 33.70 L (40.00-60.00) mg/dL Cholesterol/HDL Ratio 2.06 Ratio CBC 05/22/21 05/23/21 Range/Units 06:26 04:45 WBC 22.3 H 16.0 H (3.8-10.6) k/uL RBC 5.38 5.52 (4.30-5.90) m/uL Hgb 14.3 14.6 (13.0-17.5) gm/dL Hct 44.5 47.8 (39.0-53.0) % Plt Count 208 146 L (150-450) k/uL Comprehensive Metabolic Panel 05/22/21 05/22/21 05/23/21 Range/Units 06:26 18:22 04:45 Sodium 135 L 135 L 133 L (137-145) mmol/L Potassium 5.3 H 5.1 5.7 H (3.5-5.1) mmol/L Chloride 102 100 102 (98-107) mmol/L Carbon Dioxide 21 L 22 16 L (22-30) mmol/L BUN 93 H 85 H 85 H (9-20) mg/dL Creatinine 3.39 H 3.54 H 3.27 H (0.66-1.25) mg/dL Glucose 36 L* 79 156 H (74-99) mg/dL Calcium 7.0 L 6.6 L 6.6 L (8.4-10.2) mg/dL AST 14 L 43 (17-59) U/L ALT 8 9 (4-49) U/L Alkaline Phosphatase 78 68 (38-126) U/L Total Protein 5.2 L 5.1 L (6.3-8.2) g/dL Albumin 2.4 L 2.1 L (3.5-5.0) g/dL Current Medications Generic Name Dose Route Start Last Admin Trade Name Freq PRN Reason Stop Dose Admin Acetaminophen 650 mg 05/21/21 20:34 Acetaminophen Tab 325 Mg Tab PO Q4HR PRN Fever and/or Mild Pain Aspirin 300 mg 05/22/21 18:00 05/22/21 22:19 Aspirin 300 Mg Supp RECTAL 300 mg DAILY LESLIE Administration Dextrose/Water 1,000 mls @ 25 mls/hr 05/22/21 08:00 05/22/21 09:29 Dextrose 10%-Water Iv Soln IV 25 mls/hr .Q24H LESLIE Administration Sodium Chloride 1,000 mls @ 50 mls/hr 05/22/21 08:45 05/23/21 04:56 Saline 0.9% IV 50 mls/hr .Q20H LESLIE Administration Norepinephrine Bitartrate 32 250 mls @ 2.126 mls/hr 05/22/21 13:30 05/23/21 02:19 mg/ Sodium Chloride IV 0.45 mcg/kg/min .Q24H LESLIE 19.136 mls/hr Administration Protocol 0.05 MCG/KG/MIN Amiodarone HCl 450 mg/ 250 mls @ 16.667 mls/hr 05/23/21 02:00 05/23/21 02:51 Dextrose/Water IV 05/23/21 19:59 0.5 mg/min .Q15H LESLIE 16.667 mls/hr Administration Protocol 0.5 MG/MIN Naloxone HCl 0.2 mg 05/21/21 20:34 Naloxone 0.4 Mg/Ml 1 Ml Vial IV Q2M PRN Opioid Reversal Intake and Output 05/22/21 05/23/21 05/23/21 22:59 06:59 14:59 Intake Total 831.311 292.096 Output Total 275 215 Balance 556.311 77.096 Intake: IV 75 195 Dextrose 10% in Water 1, 75 195 000 ml @ 25 mls/hr IV . Q24H LESLIE with Sodium Chloride 4Meq/ml Vial 153 .8 meq Rx#:[id number] Intake, IV Titration 756.311 97.096 Amount Amiodarone 360 mg In 32.222 Dextrose 5% in Water 200 ml @ 1 MG/MIN 33.333 mls/ hr IV .Q6H ONE Rx#: [id number] Dextrose 10% in Water 1, 125 000 ml @ 25 mls/hr IV . Q24H LESLIE Rx#:[id number] Norepinephrine 32 mg In 99.089 97.096 Sodium Chloride 0.9% 218 ml @ 0.05 MCG/KG/MIN 2. 126 mls/hr IV .Q24H LESLIE Rx#:[id number] Sodium Chloride 0.9% 1, 250 000 ml @ 50 mls/hr IV . Q20H LESLIE Rx#:[id number] Sodium Chloride 0.9% 250 250 ml @ 999 mls/hr IV .Q16M LESLIE Rx#:[id number] Output: Urine 175 215 Hemodialysis 100 Other: Voiding Method Indwelling Catheter Indwelling Catheter Weight 97.9 kg 05/23/21 04:45 05/23/21 04:45 Assessment and Plan Assessment: Assessment #1 acute on chronic renal failure #2 change in mental status which has improved #3 possible stroke. Workup is in process #4 paroxysmal atrial fibrillation seems to be new with the diagnosis the patient #5 coronary artery disease #6 cardiomyopathy was EF between 40-45% Plan #1 consider antiplatelet for the stroke and also for the mildly abnormal troponin #2 consider oral anticoagulation for the atrial fibrillation if it's okay from the neurology standpoint overview #3 continue amiodarone for now #5 follow-up with the patient
[2021-05-23] MEDS ORDERED: FUROSEMIDE 10 MG/ML 10 ML VIAL IV STA (08:40)
--- NOTE | 2021-05-23 09:27 | P.PN ---
Subjective Patient is seen in follow for acute kidney injury on chronic kidney disease. Currently hemodialysis dependent. On high-dose Levophed. Urine output about 20 mL an hour. On 2 L nasal cannula. On amiodarone drip for A. fib. Vital signs are stable. On vasopressor support. In A. fib. General: On nasal cannula. HEENT: Head exam is unremarkable. LUNGS: Breath sounds decreased. HEART: Irregular rate and rhythm. ABDOMEN: Soft, distention noted. EXTREMITITES: 2+ edema. Objective - Vital Signs Vital signs: Vital Signs Temp 98.1 F 05/23/21 04:00 Pulse 114 H 05/23/21 07:45 Resp 23 05/23/21 07:45 BP 110/61 05/23/21 07:45 Pulse Ox 97 05/23/21 07:45 Intake & Output 05/22/21 05/23/21 05/23/21 18:59 06:59 18:59 Intake Total 1532.101 525.284 Output Total 265 365 Balance 1267.101 160.284 Weight 90.718 kg 97.9 kg Intake: IV 270 Dextrose 10% in Water 1, 270 000 ml @ 25 mls/hr IV . Q24H LESLIE with Sodium Chloride 4Meq/ml Vial 153 .8 meq Rx#:[id number] Intake, IV Titration 1532.101 255.284 Amount Amiodarone 360 mg In 32.222 Dextrose 5% in Water 200 ml @ 1 MG/MIN 33.333 mls/ hr IV .Q6H ONE Rx#: [id number] Dextrose 10% in Water 1, 225 25 000 ml @ 25 mls/hr IV . Q24H LESLIE Rx#:[id number] Norepinephrine 32 mg In 57.123 148.062 Sodium Chloride 0.9% 218 ml @ 0.05 MCG/KG/MIN 2. 126 mls/hr IV .Q24H LESLIE Rx#:[id number] Norepinephrine 4 mg In 549.978 Sodium Chloride 0.9% 250 ml @ Per Protocol IV .Q0M PRN Rx#:[id number] Sodium Chloride 0.9% 1, 450 50 000 ml @ 50 mls/hr IV . Q20H LESLIE Rx#:[id number] Sodium Chloride 0.9% 250 250 ml @ 999 mls/hr IV .Q16M LESLIE Rx#:[id number] Output: Urine 165 365 Hemodialysis 100 Other: Voiding Method Indwelling Catheter Indwelling Catheter - Labs CBC & Chem 7: 05/23/21 04:45 05/23/21 04:45 Labs: Abnormal Lab Results - Last 24 Hours (Table) 05/22/21 05/22/21 05/22/21 Range/Units 09:34 11:33 12:10 WBC (3.8-10.6) k/uL MCHC (31.0-37.0) g/dL RDW (11.5-15.5) % Plt Count (150-450) k/uL Neutrophils # (1.3-7.7) k/uL Monocytes # (0-1.0) k/uL Sodium (137-145) mmol/L Potassium (3.5-5.1) mmol/L Carbon Dioxide (22-30) mmol/L BUN (9-20) mg/dL Creatinine (0.66-1.25) mg/dL Glucose (74-99) mg/dL POC Glucose (mg/dL) 53 L 74 L (75-99) mg/dL Hemoglobin A1c (4.0-6.0) % Plasma Lactic Acid Oz 3.6 H* (0.7-2.0) mmol/L Calcium (8.4-10.2) mg/dL Total Protein (6.3-8.2) g/dL Albumin (3.5-5.0) g/dL HDL Cholesterol (40.00-60.00) mg/dL TSH (0.465-4.680) mIU/L Free T4 (0.78-2.19) ng/dL 05/22/21 05/22/21 05/22/21 Range/Units 18:22 18:22 18:22 WBC (3.8-10.6) k/uL MCHC (31.0-37.0) g/dL RDW (11.5-15.5) % Plt Count (150-450) k/uL Neutrophils # (1.3-7.7) k/uL Monocytes # (0-1.0) k/uL Sodium 135 L (137-145) mmol/L Potassium (3.5-5.1) mmol/L Carbon Dioxide (22-30) mmol/L BUN 85 H (9-20) mg/dL Creatinine 3.54 H (0.66-1.25) mg/dL Glucose (74-99) mg/dL POC Glucose (mg/dL) (75-99) mg/dL Hemoglobin A1c 6.9 H (4.0-6.0) % Plasma Lactic Acid Oz 3.2 H* (0.7-2.0) mmol/L Calcium 6.6 L (8.4-10.2) mg/dL Total Protein (6.3-8.2) g/dL Albumin (3.5-5.0) g/dL HDL Cholesterol 33.70 L (40.00-60.00) mg/dL TSH 13.500 H (0.465-4.680) mIU/L Free T4 (0.78-2.19) ng/dL 05/22/21 05/22/21 05/23/21 Range/Units 18:22 21:51 00:35 WBC (3.8-10.6) k/uL MCHC (31.0-37.0) g/dL RDW (11.5-15.5) % Plt Count (150-450) k/uL Neutrophils # (1.3-7.7) k/uL Monocytes # (0-1.0) k/uL Sodium (137-145) mmol/L Potassium (3.5-5.1) mmol/L Carbon Dioxide (22-30) mmol/L BUN (9-20) mg/dL Creatinine (0.66-1.25) mg/dL Glucose (74-99) mg/dL POC Glucose (mg/dL) 132 H (75-99) mg/dL Hemoglobin A1c (4.0-6.0) % Plasma Lactic Acid Oz 2.5 H* (0.7-2.0) mmol/L Calcium (8.4-10.2) mg/dL Total Protein (6.3-8.2) g/dL Albumin (3.5-5.0) g/dL HDL Cholesterol (40.00-60.00) mg/dL TSH (0.465-4.680) mIU/L Free T4 0.26 L (0.78-2.19) ng/dL 05/23/21 05/23/21 05/23/21 Range/Units 03:00 04:15 04:45 WBC 16.0 H (3.8-10.6) k/uL MCHC 30.5 L (31.0-37.0) g/dL RDW 15.8 H (11.5-15.5) % Plt Count 146 L (150-450) k/uL Neutrophils # 13.6 H (1.3-7.7) k/uL Monocytes # 1.1 H (0-1.0) k/uL Sodium (137-145) mmol/L Potassium (3.5-5.1) mmol/L Carbon Dioxide (22-30) mmol/L BUN (9-20) mg/dL Creatinine (0.66-1.25) mg/dL Glucose (74-99) mg/dL POC Glucose (mg/dL) 139 H (75-99) mg/dL Hemoglobin A1c (4.0-6.0) % Plasma Lactic Acid Oz 2.1 H* (0.7-2.0) mmol/L Calcium (8.4-10.2) mg/dL Total Protein (6.3-8.2) g/dL Albumin (3.5-5.0) g/dL HDL Cholesterol (40.00-60.00) mg/dL TSH (0.465-4.680) mIU/L Free T4 (0.78-2.19) ng/dL 05/23/21 05/23/21 Range/Units 04:45 06:03 WBC (3.8-10.6) k/uL MCHC (31.0-37.0) g/dL RDW (11.5-15.5) % Plt Count (150-450) k/uL Neutrophils # (1.3-7.7) k/uL Monocytes # (0-1.0) k/uL Sodium 133 L (137-145) mmol/L Potassium 5.7 H (3.5-5.1) mmol/L Carbon Dioxide 16 L (22-30) mmol/L BUN 85 H (9-20) mg/dL Creatinine 3.27 H (0.66-1.25) mg/dL Glucose 156 H (74-99) mg/dL POC Glucose (mg/dL) (75-99) mg/dL Hemoglobin A1c (4.0-6.0) % Plasma Lactic Acid Oz 2.3 H* (0.7-2.0) mmol/L Calcium 6.6 L (8.4-10.2) mg/dL Total Protein 5.1 L (6.3-8.2) g/dL Albumin 2.1 L (3.5-5.0) g/dL HDL Cholesterol (40.00-60.00) mg/dL TSH (0.465-4.680) mIU/L Free T4 (0.78-2.19) ng/dL Microbiology - Last 24 Hours (Table) 05/21/21 18:33 Blood Culture - Preliminary Blood No Growth after 24 hours 05/21/21 18:15 Blood Culture - Preliminary Blood No Growth after 24 hours Assessment and Plan Plan: Assessment: 1. Acute kidney injury secondary to ATN secondary to hypotension. Creatinine 4.23 on admission. Currently hemodialysis dependent. 2. Chronic kidney disease stage IV with baseline creatinine near 2 secondary to hepatorenal syndrome. 3. Hyperkalemia secondary to acute kidney injury, spironolactone and acidosis. Improved postdialysis. 4. Metabolic acidosis secondary to acute kidney injury, lactic acidosis and metformin. 5. History of liver cirrhosis. Patient had paracentesis on 04/29/2021 with 4.6 L drained. 6. Ascites. 7. Lower extremity edema. 8. Shock maintained on Levophed. 9. A. fib with RVR maintained on amiodarone drip. Plan: Change normal saline to bicarb drip to be run at 50 mL an hour. Repeat Lasix 80 mg IV once today. Third treatment of hemodialysis today. Continue to assess daily for need for renal replacement therapy. Will require another paracentesis this admission - will give albumin pre-and post paracentesis. Wean Levophed. Follow-up cultures.
[2021-05-23] MEDS ORDERED: DEXTROSE 5% IN WATER 1,000 ML with SODIUM BICARB (1 MEQ/ML) 150 ML IV SCH (10:00)
[2021-05-23] MEDS: DEXTROSE 10% IN WATER 1,000 ML IV SCH (10:13)
[2021-05-23] MEDS: ASPIRIN 300 MG SUPP RECTAL SCH (10:13)
--- NOTE | 2021-05-23 12:23 | P.PN ---
Subjective Progress Note Date: 05/23/21 The patient is seen at bedside and per his nurse and ICU attending is having bilateral upper and lower extremity weakness but more left > right. Patient sugar has been improving and last low POC sugar was at 12:10PM ant it was 74. Otherwise it is in 130's. His symptoms patient has new onset A. fib with RVR and cardiology is consulted. He received dialysis yesterday. He continues to have ascites. I spoke with physical therapist and she stated she had this patient about a month ago after his paracentsis for his ascites and patient was walking with walker and had no focality and his mentation was intact. Per nurse, patient is on high dose of norepinephrine and is on IV amiodarone. Was notified by nurse he was unstable to be taken for MRI since unstable because of his blood pressure issues. Objective - Vital Signs Vital signs: Vital Signs Temp 98.1 F 05/23/21 04:00 Pulse 114 H 05/23/21 07:45 Resp 23 05/23/21 07:45 BP 110/61 05/23/21 07:45 Pulse Ox 97 05/23/21 07:45 Intake & Output 05/22/21 05/23/21 05/23/21 18:59 06:59 18:59 Intake Total 1532.101 525.284 Output Total 265 365 Balance 1267.101 160.284 Weight 90.718 kg 97.9 kg Intake: IV 270 Dextrose 10% in Water 1, 270 000 ml @ 25 mls/hr IV . Q24H [facility] with Sodium Chloride 4Meq/ml Vial 153 .8 meq Rx#:[id number] Intake, IV Titration 1532.101 255.284 Amount Amiodarone 360 mg In 32.222 Dextrose 5% in Water 200 ml @ 1 MG/MIN 33.333 mls/ hr IV .Q6H ONE Rx#: [id number] Dextrose 10% in Water 1, 225 25 000 ml @ 25 mls/hr IV . Q24H [facility] Rx#:[id number] Norepinephrine 32 mg In 57.123 148.062 Sodium Chloride 0.9% 218 ml @ 0.05 MCG/KG/MIN 2. 126 mls/hr IV .Q24H [facility] Rx#:[id number] Norepinephrine 4 mg In 549.978 Sodium Chloride 0.9% 250 ml @ Per Protocol IV .Q0M PRN Rx#:[id number] Sodium Chloride 0.9% 1, 450 50 000 ml @ 50 mls/hr IV . Q20H [facility] Rx#:[id number] Sodium Chloride 0.9% 250 250 ml @ 999 mls/hr IV .Q16M [facility] Rx#:[id number] Output: Urine 165 365 Hemodialysis 100 Other: Voiding Method Indwelling Catheter Indwelling Catheter - Exam GENERAL: The patient is lying in bed and seems lethargic but is not in acute d istress. ABDOMEN/GI: Has abdominal distention with positive ascites. INTEGUMENTARY: Has edema throughout upper and lower extremities (lower > upper) and seems 2+. Has discoloartion of the left large toe and digit digit and cold to touch over the left foot. NEUROLOGICAL: Higher mental function: The patient is drowsy but is awakeable to voice. Is oriented to self, place and time. Patient is following simple commands. No aphasia and no neglect. Cranial nerves: The pupils are round, equal and reactive to light. Visual huang are full to confrontation throughout. Extraocular movement is intact no nystagmus is noted. Facial sensation is normal to touch throughout. The facial strength is normal throughout. Tongue is midline and moved [id number] without any difficulty. Mild to moderate dysarthria is noted. Motor: Gait is deferred. The strength is right upper extremity had extreme brief episode of raising above gravity but otherwise has weakness. Left upper extremity minimally was able to have some movement at elbow 2-3 (once). Otherwise bilateral hand plug maker is 3-4. Right lower extremity is has dorsiflexion/plantarflexion of right ankle but no movement of left entire side and no movement noted anywhere else. Decrease tone throughout. Has edema throughout. Cerebellum: Could not assess since he was weak. Sensation: Normal to touch throughout. Reflexes (right/left): 0 (hard to assess since edema). Plantars is downgoing over the right and mute over the left. WORK-UP: Initial Creatnine is 4.23-->3.27 AST 14, ALT of 8. TSH: 13.50 and free T4: 0.26 (possible suggestive of hypothryoidism). HbA1c: 6.9 Panel is triglyceride of 79, cholesterol 70, LDL of 19 and HDL of 33. Urinalysis seems unlikely of urinary tract infection. Coronavirus PCR was not detected that. CT of the head is reported as age-related changes of atrophy and chronic ischemia. CTA of head and neck: Is reported as no significant abnormality is seen with the vasculature to suggest acute cerebral vascular accident, consider MRI for additional evaluation as indicated. Sclerotic area is noted within the spine, consider bone scan, metastatic disease not excluded. There is underlying degenerative disc disease. - Labs CBC & Chem 7: 05/23/21 04:45 05/23/21 09:18 Labs: Abnormal Lab Results - Last 24 Hours (Table) 05/22/21 05/22/21 05/22/21 Range/Units 11:33 12:10 18:22 WBC (3.8-10.6) k/uL MCHC (31.0-37.0) g/dL RDW (11.5-15.5) % Plt Count (150-450) k/uL Neutrophils # (1.3-7.7) k/uL Monocytes # (0-1.0) k/uL Sodium 135 L (137-145) mmol/L Potassium (3.5-5.1) mmol/L Carbon Dioxide (22-30) mmol/L BUN 85 H (9-20) mg/dL Creatinine 3.54 H (0.66-1.25) mg/dL Glucose (74-99) mg/dL POC Glucose (mg/dL) 74 L (75-99) mg/dL Hemoglobin A1c (4.0-6.0) % Plasma Lactic Acid Oz 3.6 H* (0.7-2.0) mmol/L Calcium 6.6 L (8.4-10.2) mg/dL Total Protein (6.3-8.2) g/dL Albumin (3.5-5.0) g/dL HDL Cholesterol 33.70 L (40.00-60.00) mg/dL TSH 13.500 H (0.465-4.680) mIU/L Free T4 (0.78-2.19) ng/dL 05/22/21 05/22/21 05/22/21 Range/Units 18:22 18:22 18:22 WBC (3.8-10.6) k/uL MCHC (31.0-37.0) g/dL RDW (11.5-15.5) % Plt Count (150-450) k/uL Neutrophils # (1.3-7.7) k/uL Monocytes # (0-1.0) k/uL Sodium (137-145) mmol/L Potassium (3.5-5.1) mmol/L Carbon Dioxide (22-30) mmol/L BUN (9-20) mg/dL Creatinine (0.66-1.25) mg/dL Glucose (74-99) mg/dL POC Glucose (mg/dL) (75-99) mg/dL Hemoglobin A1c 6.9 H (4.0-6.0) % Plasma Lactic Acid Oz 3.2 H* (0.7-2.0) mmol/L Calcium (8.4-10.2) mg/dL Total Protein (6.3-8.2) g/dL Albumin (3.5-5.0) g/dL HDL Cholesterol (40.00-60.00) mg/dL TSH (0.465-4.680) mIU/L Free T4 0.26 L (0.78-2.19) ng/dL 05/22/21 05/23/21 05/23/21 Range/Units 21:51 00:35 03:00 WBC (3.8-10.6) k/uL MCHC (31.0-37.0) g/dL RDW (11.5-15.5) % Plt Count (150-450) k/uL Neutrophils # (1.3-7.7) k/uL Monocytes # (0-1.0) k/uL Sodium (137-145) mmol/L Potassium (3.5-5.1) mmol/L Carbon Dioxide (22-30) mmol/L BUN (9-20) mg/dL Creatinine (0.66-1.25) mg/dL Glucose (74-99) mg/dL POC Glucose (mg/dL) 132 H (75-99) mg/dL Hemoglobin A1c (4.0-6.0) % Plasma Lactic Acid Oz 2.5 H* 2.1 H* (0.7-2.0) mmol/L Calcium (8.4-10.2) mg/dL Total Protein (6.3-8.2) g/dL Albumin (3.5-5.0) g/dL HDL Cholesterol (40.00-60.00) mg/dL TSH (0.465-4.680) mIU/L Free T4 (0.78-2.19) ng/dL 05/23/21 05/23/21 05/23/21 Range/Units 04:15 04:45 04:45 WBC 16.0 H (3.8-10.6) k/uL MCHC 30.5 L (31.0-37.0) g/dL RDW 15.8 H (11.5-15.5) % Plt Count 146 L (150-450) k/uL Neutrophils # 13.6 H (1.3-7.7) k/uL Monocytes # 1.1 H (0-1.0) k/uL Sodium 133 L (137-145) mmol/L Potassium 5.7 H (3.5-5.1) mmol/L Carbon Dioxide 16 L (22-30) mmol/L BUN 85 H (9-20) mg/dL Creatinine 3.27 H (0.66-1.25) mg/dL Glucose 156 H (74-99) mg/dL POC Glucose (mg/dL) 139 H (75-99) mg/dL Hemoglobin A1c (4.0-6.0) % Plasma Lactic Acid Oz (0.7-2.0) mmol/L Calcium 6.6 L (8.4-10.2) mg/dL Total Protein 5.1 L (6.3-8.2) g/dL Albumin 2.1 L (3.5-5.0) g/dL HDL Cholesterol (40.00-60.00) mg/dL TSH (0.465-4.680) mIU/L Free T4 (0.78-2.19) ng/dL 05/23/21 05/23/21 05/23/21 Range/Units 06:03 09:18 09:18 WBC (3.8-10.6) k/uL MCHC (31.0-37.0) g/dL RDW (11.5-15.5) % Plt Count (150-450) k/uL Neutrophils # (1.3-7.7) k/uL Monocytes # (0-1.0) k/uL Sodium (137-145) mmol/L Potassium 5.5 H (3.5-5.1) mmol/L Carbon Dioxide (22-30) mmol/L BUN (9-20) mg/dL Creatinine (0.66-1.25) mg/dL Glucose (74-99) mg/dL POC Glucose (mg/dL) (75-99) mg/dL Hemoglobin A1c (4.0-6.0) % Plasma Lactic Acid Oz 2.3 H* 3.0 H* (0.7-2.0) mmol/L Calcium (8.4-10.2) mg/dL Total Protein (6.3-8.2) g/dL Albumin (3.5-5.0) g/dL HDL Cholesterol (40.00-60.00) mg/dL TSH (0.465-4.680) mIU/L Free T4 (0.78-2.19) ng/dL Microbiology - Last 24 Hours (Table) 05/21/21 18:33 Blood Culture - Preliminary Blood No Growth after 24 hours 05/21/21 18:15 Blood Culture - Preliminary Blood No Growth after 24 hours Assessment and Plan Assessment: * Altered mental status likely due to multifactorial: Metabolic encephalopathy (hypoglycemia, acute renal failure, hypovolemia) and hypothyroidism--mentation improving. * Signficant Quadraparesis (left > right with plegia over the left lower extremi ty): Possibly stroke (especially because of new onset a-fib, hypotension (can cause watershed infarc) vs localized to cervical region. No IV tpa since unknown last normal (it seems possibly he presented from outside facility with left sided weakness per nursing staff). Another possibility is hypoglycemia which can mimic stroke * New onset A. fib with RVR * Hypoglycemia during this admission (as low as 36)--improving * Acute hypotension (as low as 62/37) on Levophed * Hypothyroidism (TSH: 13.50 and free T4: 0.26). * Acute renal failure status post hemodialysis today * Bluish discoloration over the left foot and cold to touch. Rule out peripheral arterial disease * History of type 2 diabetes (HbA1c is 6.9) * History of liver cirrhosis and has ascites * Ischemic cardiomyopathy with ejection fraction of 40% * Hypertension and on the this admission the presentation has hypotension * Hyperlipidemia * History of chronic kidney stage III disease * History of prostate cancer Plan: Ordered repeat CT brain with C-spine to assess if any abnormality suggestive of stroke not seen on initial. Pending MRI Brain and C-spine. Continue ASA 300mg suppository. I will hold off on the any statins for now because of patient history of cirrhosis and current ascites. Ordered 2-D echo limited and is pending. Every hour neuro checks PT, OT, CARE COORDINATOR are consulted Cardiology is consulted for A. fib with RVR. Please avoid any further hypoglycemia or hypotension and we'll defer the management to the primary as well as ICU team Will defer the hypothyroidism treatment to primary and ICU team. Nephrology is on board Consider vascular surgery team to rule out peripheral arterial disease of the left foot. We'll defer the rest of medical management to the primary ICU team. For DVT prophylaxis: Will defer management to primary and ICU team. Condition: Is very guarded. The plan is discussed with the patient and his nurse. Brent Pascual M.D. Neuro-hospitalist Time with Patient: Less than 30
[2021-05-23 12:47] LABS: Glucose,Whole Blood 290 mg/dL (75-99)
--- NOTE | 2021-05-23 13:06 | P.PN ---
Subjective Progress Note Date: 05/23/21 Principal diagnosis: Acute on chronic renal failure with hyperkalemia and possible CVA versus metabolic encephalopathy. This is a 65-year-old male patient who presented initially to [facility] [place] with complaints of fatigue and weakness. He is found to have significant hyperkalemia and acute renal failure. He was subsequently transferred here for further care. He was discharged from here on 05/01/2021 for underlying liver disease and large ascites status post paracentesis of 4.6 L of fluid removed. He does have chronic kidney disease stage IIIB with a baseline creatinine of 2. Ischemic cardiomyopathy with an ejection fraction of 40%. He has a history of diabetes mellitus, hypertension, coronary artery disease with previous bypass surgery. Initial potassium 7.4 and a creatinine of 4.23. An emergent hemodialysis catheter was placed in the right groin last night by vascular services and he completed hemodialysis at approximate 4:30 this morning. Current lab results reveal a white count of 22.3. Hemoglobin 14.3. Sodium 135. Potassium 5.3. Bicarb 21. BUN 93. Creatinine 3.39. Blood glucose 36, lactic acid 3.2. Troponin 0.18, 0.29. Urinalysis with moderate blood and 1+ protein and few bacteria. Salguero virus by PCR not detected. Hepatitis B screen negative. He is seen today in consultation in the emergency room for plan to transfer to the ICU. He is requiring norepinephrine at 0.25 mcg/kg/m. He is receiving D10 for his hypoglycemia, currently at 25 ML's per hour. He has 0.9 normal saline at 50 MLS per hour. He has received 7 A of so dium bicarb thus far. Hyperkalemia treated per protocol. The patient is arousable answering questions appropriately but moaning. He denies any pain. He is maintaining O2 saturations in the mid 90s on 4 L nasal cannula. He is currently afebrile. Chest x-ray reveals poor expiratory effort with infiltrate and atelectasis of the left lower lobe. Abdominal ultrasound reveals evidence of glossitis with a history of previous ascites and paracentesis. Computed tomography scan of the brain revealed age-related atrophy with chronic ischemia. Awaiting transfer to ICU. Patient was reevaluated today on 04/23/21, remains in the ICU, patient underwent dialysis. He was seen by many consultants including nephrology and he was seen by neurology. He was also seen by cardiology. Patient continues to have significant bilateral upper and lower extremities weakness, left more so than right, patient is basically on room air, his ascites seems to be getting worse, he was started on bicarb drip earlier today by nephrology. Potassium is elevated at 5.5. BUN is 85 creatinine 3.21. Patient remains on D10w because of intermittent hypoglycemia. Patient is requiring relatively high dose of norepin ephrine, and he is also on IV amiodarone. Neurology is recommending MRI, and also recommending evaluation of cervical spine concern about the possibility of myelopathy or cervical lesion causing his profound weakness in upper and lower extremities. Objective - Vital Signs Vital signs: Vital Signs Temp 98.8 F 05/23/21 08:00 Pulse 130 H 05/23/21 11:30 Resp 24 05/23/21 11:30 BP 111/65 05/23/21 11:30 Pulse Ox 97 05/23/21 11:30 Intake & Output 05/22/21 05/23/21 05/23/21 18:59 06:59 18:59 Intake Total 1532.101 525.284 250 Output Total 265 365 60 Balance 1267.101 160.284 190 Weight 90.718 kg 97.9 kg Intake: IV 270 250 0.9 250 Dextrose 10% in Water 1, 270 000 ml @ 25 mls/hr IV . Q24H [facility] with Sodium Chloride 4Meq/ml Vial 153 .8 meq Rx#:[id number] Intake, IV Titration 1532.101 255.284 Amount Amiodarone 360 mg In 32.222 Dextrose 5% in Water 200 ml @ 1 MG/MIN 33.333 mls/ hr IV .Q6H ONE Rx#: [id number] Dextrose 10% in Water 1, 225 25 000 ml @ 25 mls/hr IV . Q24H [facility] Rx#:[id number] Norepinephrine 32 mg In 57.123 148.062 Sodium Chloride 0.9% 218 ml @ 0.05 MCG/KG/MIN 2. 126 mls/hr IV .Q24H [facility] Rx#:[id number] Norepinephrine 4 mg In 549.978 Sodium Chloride 0.9% 250 ml @ Per Protocol IV .Q0M PRN Rx#:[id number] Sodium Chloride 0.9% 1, 450 50 000 ml @ 50 mls/hr IV . Q20H [facility] Rx#:[id number] Sodium Chloride 0.9% 250 250 ml @ 999 mls/hr IV .Q16M [facility] Rx#:[id number] Output: Urine 165 365 60 Hemodialysis 100 Other: Voiding Method Indwelling Catheter Indwelling Catheter - Exam GENERAL EXAM: 65-year-old white male, awake, alert oriented 3, on room air. HEAD: Normocephalic. HEENT: Looks pale, no neck masses, no JVD, no stridor, dry mucous membranes. CHEST: No chest wall deformity. LUNGS: Symmetrical chest expansion diminished breath sounds at the bases. CVS: S1 and S2 normal with no audible murmur, regular rhythm. ABDOMEN: Positive ascites, nontender, no rebound, no guarding. CENTRAL NERVOUS SYSTEM: Extreme muscle weakness noted in upper and lower extremities, mental status is intact. Left sided muscles seem to be weaker than the right sided muscles EXTREMITIES: Right femoral triple-lumen hemodialysis catheter in place. There is no peripheral edema. No clubbing, no cyanosis. Peripheral pulses are intact. - Labs CBC & Chem 7: 05/23/21 04:45 05/23/21 09:18 Labs: Abnormal Lab Results - Last 24 Hours (Table) 05/22/21 05/22/21 05/22/21 Range/Units 18:22 18:22 18:22 WBC (3.8-10.6) k/uL MCHC (31.0-37.0) g/dL RDW (11.5-15.5) % Plt Count (150-450) k/uL Neutrophils # (1.3-7.7) k/uL Monocytes # (0-1.0) k/uL Sodium 135 L (137-145) mmol/L Potassium (3.5-5.1) mmol/L Carbon Dioxide (22-30) mmol/L BUN 85 H (9-20) mg/dL Creatinine 3.54 H (0.66-1.25) mg/dL Glucose (74-99) mg/dL POC Glucose (mg/dL) (75-99) mg/dL Hemoglobin A1c 6.9 H (4.0-6.0) % Plasma Lactic Acid Oz 3.2 H* (0.7-2.0) mmol/L Calcium 6.6 L (8.4-10.2) mg/dL Total Protein (6.3-8.2) g/dL Albumin (3.5-5.0) g/dL HDL Cholesterol 33.70 L (40.00-60.00) mg/dL TSH 13.500 H (0.465-4.680) mIU/L Free T4 (0.78-2.19) ng/dL 05/22/21 05/22/21 05/23/21 Range/Units 18:22 21:51 00:35 WBC (3.8-10.6) k/uL MCHC (31.0-37.0) g/dL RDW (11.5-15.5) % Plt Count (150-450) k/uL Neutrophils # (1.3-7.7) k/uL Monocytes # (0-1.0) k/uL Sodium (137-145) mmol/L Potassium (3.5-5.1) mmol/L Carbon Dioxide (22-30) mmol/L BUN (9-20) mg/dL Creatinine (0.66-1.25) mg/dL Glucose (74-99) mg/dL POC Glucose (mg/dL) 132 H (75-99) mg/dL Hemoglobin A1c (4.0-6.0) % Plasma Lactic Acid Oz 2.5 H* (0.7-2.0) mmol/L Calcium (8.4-10.2) mg/dL Total Protein (6.3-8.2) g/dL Albumin (3.5-5.0) g/dL HDL Cholesterol (40.00-60.00) mg/dL TSH (0.465-4.680) mIU/L Free T4 0.26 L (0.78-2.19) ng/dL 05/23/21 05/23/21 05/23/21 Range/Units 03:00 04:15 04:45 WBC 16.0 H (3.8-10.6) k/uL MCHC 30.5 L (31.0-37.0) g/dL RDW 15.8 H (11.5-15.5) % Plt Count 146 L (150-450) k/uL Neutrophils # 13.6 H (1.3-7.7) k/uL Monocytes # 1.1 H (0-1.0) k/uL Sodium (137-145) mmol/L Potassium (3.5-5.1) mmol/L Carbon Dioxide (22-30) mmol/L BUN (9-20) mg/dL Creatinine (0.66-1.25) mg/dL Glucose (74-99) mg/dL POC Glucose (mg/dL) 139 H (75-99) mg/dL Hemoglobin A1c (4.0-6.0) % Plasma Lactic Acid Oz 2.1 H* (0.7-2.0) mmol/L Calcium (8.4-10.2) mg/dL Total Protein (6.3-8.2) g/dL Albumin (3.5-5.0) g/dL HDL Cholesterol (40.00-60.00) mg/dL TSH (0.465-4.680) mIU/L Free T4 (0.78-2.19) ng/dL 05/23/21 05/23/21 05/23/21 Range/Units 04:45 06:03 09:18 WBC (3.8-10.6) k/uL MCHC (31.0-37.0) g/dL RDW (11.5-15.5) % Plt Count (150-450) k/uL Neutrophils # (1.3-7.7) k/uL Monocytes # (0-1.0) k/uL Sodium 133 L (137-145) mmol/L Potassium 5.7 H 5.5 H (3.5-5.1) mmol/L Carbon Dioxide 16 L (22-30) mmol/L BUN 85 H (9-20) mg/dL Creatinine 3.27 H (0.66-1.25) mg/dL Glucose 156 H (74-99) mg/dL POC Glucose (mg/dL) (75-99) mg/dL Hemoglobin A1c (4.0-6.0) % Plasma Lactic Acid Oz 2.3 H* (0.7-2.0) mmol/L Calcium 6.6 L (8.4-10.2) mg/dL Total Protein 5.1 L (6.3-8.2) g/dL Albumin 2.1 L (3.5-5.0) g/dL HDL Cholesterol (40.00-60.00) mg/dL TSH (0.465-4.680) mIU/L Free T4 (0.78-2.19) ng/dL 05/23/21 05/23/21 Range/Units 09:18 12:46 WBC (3.8-10.6) k/uL MCHC (31.0-37.0) g/dL RDW (11.5-15.5) % Plt Count (150-450) k/uL Neutrophils # (1.3-7.7) k/uL Monocytes # (0-1.0) k/uL Sodium (137-145) mmol/L Potassium (3.5-5.1) mmol/L Carbon Dioxide (22-30) mmol/L BUN (9-20) mg/dL Creatinine (0.66-1.25) mg/dL Glucose (74-99) mg/dL POC Glucose (mg/dL) 290 H (75-99) mg/dL Hemoglobin A1c (4.0-6.0) % Plasma Lactic Acid Oz 3.0 H* (0.7-2.0) mmol/L Calcium (8.4-10.2) mg/dL Total Protein (6.3-8.2) g/dL Albumin (3.5-5.0) g/dL HDL Cholesterol (40.00-60.00) mg/dL TSH (0.465-4.680) mIU/L Free T4 (0.78-2.19) ng/dL Microbiology - Last 24 Hours (Table) 05/21/21 18:33 Blood Culture - Preliminary Blood No Growth after 24 hours 05/21/21 18:15 Blood Culture - Preliminary Blood No Growth after 24 hours Assessment and Plan Assessment: Impression: Acute on chronic renal failure, requiring hemodialysis. Acute hyperkalemia secondary to above. Hypoglycemia, exact etiology is not clear, patient is receiving D10W infusion. Profound hypotension requiring norepinephrine, exact etiology is not clear, patient is intravascularly depleted, he has ascites however. And he has bipedal edema. I believe this is cardiogenic in nature. History of liver cirrhosis and previous paracentesis, his last paracentesis was 04/29/21. History of chronic kidney disease stage IIIB. Atrial fibrillation with RVR. The requiring amiodarone. Severe ischemic cardiomyopathy. With severe hypotension. Dyslipidemia. History of prostate cancer. Profound muscle weakness in upper and lower extremities, patient is scheduled to have MRI of the head and MRI of the cervical spine. Workup as per neurology on the case. Recommendation: Continue to monitor the patient in the ICU. Continue norepinephrine and amiodarone. Arrange for paracentesis on this patient. Continue D10 infusion for now. Continue hemodialysis. Continue bicarb drip. Agree with MRI of the head and MRI of the cervical spine. Overall prognosis remains extremely poor and guarded. CODE STATUS may have to be discussed with the family at one point. Patient is critically ill, critical care time is over 30 minutes. Discussed the patient's condition with the neurologist on the case. Time with Patient: Greater than 30
[2021-05-23 13:47] LABS: INR 1.3 (<1.2); Prothrombin Time 13.7 sec (9.0-12.0)
--- NOTE | 2021-05-23 13:56 | CDI ---
Documentation Clarification Form Date: 05/23/2021 01:40:32 PM From: Maryan Galeana CCS, CCDS Admit Date: 05/21/2021 08:34:00 PM Patient Name: Stalin Paula Visit Number: [id number] Discharge Date: ATTENTION: The Clinical Documentation Specialists (CDI) and [facility] Coding Staff appreciate your assistance in clarifying documentation. Please respond to the clarification below the line at the bottom and electronically sign. The CDI & [facility] Coding staff will review the response and follow-up if needed. Please note: Queries are made part of the Legal Health Record. If you have any questions, please contact the author of this message via ITS. Dr. Vinod Weller: Your patient has the documented diagnosis of unspecified Heart Failure in the patient's Past Medical History throughout the chart including the 05/21 ED Note, 05/22 History & Physical and subsequent Consults. Additional information regarding the Type & Acuity of CHF is requested. 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 Home Meds include: Insulin sq, Metformin, Mag-Ox, Lasix 40 mg BID, Plavix, Aldactone Clinical Indicators: Presented to the ED on 05/21 via EMS with SOB. Transferred from [facility] for Acute Renal Failure and Hyperkalemia, questionable Pneumonia. Admit with SHILPA, Hyperkalemia, Atelectasis, Elevated Troponin and Hypoglycemia 05/21 VS: T 97.6, P 81, R 18, BP 119/75, PO 99 4Lnc, BMI: 29.3 05/21 LAB: WBC 11.8, Neutrophils 10.0; Na 127, K 7.4, 6.9; CO2 13, BUN 115, Creatinine 4.23, Glucose 46, Lactic Acid: 2.6, 4.4; Calcium 7.7, Magnesium 2.4, AST 15, Troponin 0.187, 0.181; Total Protein 6.0, Albumin 2.8 05/21 CXR: Poor inspiration with infiltrate and atelectasis left lower lobe mostly new, No heart failure is seen. Most recent ECHO 03/19/2021: Moderate concentric LVH, Left ventricular systolic function is mildly - moderately impaired w/EF 40-45%. Treatment 05/21: Admit to ICU, O2 4Lnc, IV Fluid 999 mls/hr q31M x2, IV Calcium Gluconate, INH Ventolin x1, IV Dextrose 40 ml x1, IV Insulin 10 unit x2, IV Na Bicarb 40 ml x7, po Kayexalate 30 gm x1 05/22: IV Levophed, IV Lasix 80 mg x1 05/23: IV Lasix 80 mg x1 In your professional opinion, can you please clarify the Type and Acuity of CHF if known? [ ] Acute Systolic Heart Failure [ ] Chronic Systolic Heart Failure [ ] Acute on Chronic Systolic Heart Failure [ ] Heart Failure ruled out [ ] Other, please specify [ ] Unable to determine (Template Last Revised: July 2020) MTDD
[2021-05-23 14:58] VITALS: BMI 29.2
--- NOTE | 2021-05-23 15:16 | P.PN ---
Subjective Progress Note Date: 05/23/21 Principal diagnosis: Left hemiplegia; possible acute versus subacute CVA Critical hyperkalemia Acute on chronic kidney disease stage IV/hemodialysis Hypotension Atrial fibrillation with RVR Decompensated liver cirrhosis with ascites 65-year-old male transferred from [facility] for acute renal failure and hyperkalemia. Patient also had questionable pneumonia and was Mr. to antibiotics at the outside hospital. He states that over the last few days he has been feeling more fatigued which prompted him to present to the emergency department at the outside hospital. He does have a history of CK D, he does have a history also of hyperkalemia which was previously treated by Dr. Chen, which is why transfer was accepted. He is not on dialysis and never has been on dialysis. Does have a history of CABG, diabetes, hypertension. He states he was having generalized weakness for multiple days prior to arrival. He denies any cough, shortness of breath, chest pain, abdominal pain, nausea, vomiting, diarrhea. States he did notice decreased urine output. Prior episode of renal failure was secondary to obstruction per outside hospital. They placed a Blanco catheter and had a small amount of urine produced. He presents emergency depar tment for further evaluation. At the outside hospital he did receive one round of hyper healing a cocktail including Kayexalate, calcium, bicarbonate, insulin, D50, albuterol. Patient does have a history of a chronic left bundle branch block. Current lab results reveal a white count of 22.3. Hemoglobin 14.3. Sodium 135. Potassium 5.3. Bicarb 21. BUN 93. Creatinine 3.39. Blood glucose 36, lactic acid 3.2. Troponin 0.18, 0.29. Urinalysis with moderate blood and 1+ protein and few bacteria. Salguero virus by PCR not detected. Hepatitis B screen negative. Patient is admitted to ICU The patient is arousable answering questions appropriately but moaning. He denies any pain. He is maintaining O2 saturations in the mid 90s on 4 L nasal cannula. He is currently afebrile. Chest x-ray reveals poor expiratory effort with infiltrate and atelectasis of the left lower lobe. Abdominal ultrasound reveals fluid in all 4 quadrants with a history of previous ascites and paracentesis. Computed tomography scan of the brain revealed age-related atrophy with chronic ischemia. Urology to see patient and make further recommendations 05/23/2021 Patient is seen and evaluated in ICU with daughter at bedside; currently undergoing hemodialysis Patient had a significant difference and then developed atrial fibrillation with RVR; has been placed on IV amiodarone and heparin per cardiology service Patient continues to have marked weakness; neurology on board and recommending MRI of the brain along with CT of cervical spine for concern about possibility of myelopathy or cervical lesion causing profound weakness in both upper and lower extremities Patient has been placed on hemodialysis; remains on bicarb infusion as recommended by nephrology Continues to have recurrent episodes of hypoglycemia and remains on D10 infusion Objective - Vital Signs Vital signs: Vital Signs Temp 98.1 F 05/23/21 04:00 Pulse 114 H 05/23/21 07:45 Resp 23 05/23/21 07:45 BP 110/61 05/23/21 07:45 Pulse Ox 97 05/23/21 07:45 Intake & Output 05/22/21 05/23/21 05/23/21 18:59 06:59 18:59 Intake Total 1532.101 525.284 Output Total 265 365 Balance 1267.101 160.284 Weight 90.718 kg 97.9 kg Intake: IV 270 Dextrose 10% in Water 1, 270 000 ml @ 25 mls/hr IV . Q24H [facility] with Sodium Chloride 4Meq/ml Vial 153 .8 meq Rx#:[id number] Intake, IV Titration 1532.101 255.284 Amount Amiodarone 360 mg In 32.222 Dextrose 5% in Water 200 ml @ 1 MG/MIN 33.333 mls/ hr IV .Q6H ONE Rx#: [id number] Dextrose 10% in Water 1, 225 25 000 ml @ 25 mls/hr IV . Q24H [facility] Rx#:[id number] Norepinephrine 32 mg In 57.123 148.062 Sodium Chloride 0.9% 218 ml @ 0.05 MCG/KG/MIN 2. 126 mls/hr IV .Q24H [facility] Rx#:[id number] Norepinephrine 4 mg In 549.978 Sodium Chloride 0.9% 250 ml @ Per Protocol IV .Q0M PRN Rx#:[id number] Sodium Chloride 0.9% 1, 450 50 000 ml @ 50 mls/hr IV . Q20H [facility] Rx#:[id number] Sodium Chloride 0.9% 250 250 ml @ 999 mls/hr IV .Q16M [facility] Rx#:[id number] Output: Urine 165 365 Hemodialysis 100 Other: Voiding Method Indwelling Catheter Indwelling Catheter - Exam GENERAL EXAM: 65-year-old white male, awake, alert oriented 3, on room air. HEAD: Normocephalic. HEENT: Looks pale, no neck masses, no JVD, no stridor, dry mucous membranes. CHEST: No chest wall deformity. LUNGS: Symmetrical chest expansion diminished breath sounds at the bases. CVS: S1 and S2 normal with no audible murmur, regular rhythm. ABDOMEN: Positive ascites, nontender, no rebound, no guarding. CENTRAL NERVOUS SYSTEM: Extreme muscle weakness noted in upper and lower extremities, mental status is intact. Left sided muscles seem to be weaker than the right sided muscles EXTREMITIES: Right femoral triple-lumen hemodialysis catheter in place. There is no peripheral edema. No clubbing, no cyanosis. Peripheral pulses are intact. - Labs CBC & Chem 7: 05/23/21 04:45 05/23/21 09:18 Labs: Abnormal Lab Results - Last 24 Hours (Table) 05/22/21 05/22/21 05/22/21 Range/Units 11:33 12:10 18:22 WBC (3.8-10.6) k/uL MCHC (31.0-37.0) g/dL RDW (11.5-15.5) % Plt Count (150-450) k/uL Neutrophils # (1.3-7.7) k/uL Monocytes # (0-1.0) k/uL Sodium 135 L (137-145) mmol/L Potassium (3.5-5.1) mmol/L Carbon Dioxide (22-30) mmol/L BUN 85 H (9-20) mg/dL Creatinine 3.54 H (0.66-1.25) mg/dL Glucose (74-99) mg/dL POC Glucose (mg/dL) 74 L (75-99) mg/dL Hemoglobin A1c (4.0-6.0) % Plasma Lactic Acid Oz 3.6 H* (0.7-2.0) mmol/L Calcium 6.6 L (8.4-10.2) mg/dL Total Protein (6.3-8.2) g/dL Albumin (3.5-5.0) g/dL HDL Cholesterol 33.70 L (40.00-60.00) mg/dL TSH 13.500 H (0.465-4.680) mIU/L Free T4 (0.78-2.19) ng/dL 05/22/21 05/22/21 05/22/21 Range/Units 18:22 18:22 18:22 WBC (3.8-10.6) k/uL MCHC (31.0-37.0) g/dL RDW (11.5-15.5) % Plt Count (150-450) k/uL Neutrophils # (1.3-7.7) k/uL Monocytes # (0-1.0) k/uL Sodium (137-145) mmol/L Potassium (3.5-5.1) mmol/L Carbon Dioxide (22-30) mmol/L BUN (9-20) mg/dL Creatinine (0.66-1.25) mg/dL Glucose (74-99) mg/dL POC Glucose (mg/dL) (75-99) mg/dL Hemoglobin A1c 6.9 H (4.0-6.0) % Plasma Lactic Acid Oz 3.2 H* (0.7-2.0) mmol/L Calcium (8.4-10.2) mg/dL Total Protein (6.3-8.2) g/dL Albumin (3.5-5.0) g/dL HDL Cholesterol (40.00-60.00) mg/dL TSH (0.465-4.680) mIU/L Free T4 0.26 L (0.78-2.19) ng/dL 05/22/21 05/23/21 05/23/21 Range/Units 21:51 00:35 03:00 WBC (3.8-10.6) k/uL MCHC (31.0-37.0) g/dL RDW (11.5-15.5) % Plt Count (150-450) k/uL Neutrophils # (1.3-7.7) k/uL Monocytes # (0-1.0) k/uL Sodium (137-145) mmol/L Potassium (3.5-5.1) mmol/L Carbon Dioxide (22-30) mmol/L BUN (9-20) mg/dL Creatinine (0.66-1.25) mg/dL Glucose (74-99) mg/dL POC Glucose (mg/dL) 132 H (75-99) mg/dL Hemoglobin A1c (4.0-6.0) % Plasma Lactic Acid Oz 2.5 H* 2.1 H* (0.7-2.0) mmol/L Calcium (8.4-10.2) mg/dL Total Protein (6.3-8.2) g/dL Albumin (3.5-5.0) g/dL HDL Cholesterol (40.00-60.00) mg/dL TSH (0.465-4.680) mIU/L Free T4 (0.78-2.19) ng/dL 05/23/21 05/23/21 05/23/21 Range/Units 04:15 04:45 04:45 WBC 16.0 H (3.8-10.6) k/uL MCHC 30.5 L (31.0-37.0) g/dL RDW 15.8 H (11.5-15.5) % Plt Count 146 L (150-450) k/uL Neutrophils # 13.6 H (1.3-7.7) k/uL Monocytes # 1.1 H (0-1.0) k/uL Sodium 133 L (137-145) mmol/L Potassium 5.7 H (3.5-5.1) mmol/L Carbon Dioxide 16 L (22-30) mmol/L BUN 85 H (9-20) mg/dL Creatinine 3.27 H (0.66-1.25) mg/dL Glucose 156 H (74-99) mg/dL POC Glucose (mg/dL) 139 H (75-99) mg/dL Hemoglobin A1c (4.0-6.0) % Plasma Lactic Acid Oz (0.7-2.0) mmol/L Calcium 6.6 L (8.4-10.2) mg/dL Total Protein 5.1 L (6.3-8.2) g/dL Albumin 2.1 L (3.5-5.0) g/dL HDL Cholesterol (40.00-60.00) mg/dL TSH (0.465-4.680) mIU/L Free T4 (0.78-2.19) ng/dL 05/23/21 05/23/21 05/23/21 Range/Units 06:03 09:18 09:18 WBC (3.8-10.6) k/uL MCHC (31.0-37.0) g/dL RDW (11.5-15.5) % Plt Count (150-450) k/uL Neutrophils # (1.3-7.7) k/uL Monocytes # (0-1.0) k/uL Sodium (137-145) mmol/L Potassium 5.5 H (3.5-5.1) mmol/L Carbon Dioxide (22-30) mmol/L BUN (9-20) mg/dL Creatinine (0.66-1.25) mg/dL Glucose (74-99) mg/dL POC Glucose (mg/dL) (75-99) mg/dL Hemoglobin A1c (4.0-6.0) % Plasma Lactic Acid Oz 2.3 H* 3.0 H* (0.7-2.0) mmol/L Calcium (8.4-10.2) mg/dL Total Protein (6.3-8.2) g/dL Albumin (3.5-5.0) g/dL HDL Cholesterol (40.00-60.00) mg/dL TSH (0.465-4.680) mIU/L Free T4 (0.78-2.19) ng/dL Microbiology - Last 24 Hours (Table) 05/21/21 18:33 Blood Culture - Preliminary Blood No Growth after 24 hours 05/21/21 18:15 Blood Culture - Preliminary Blood No Growth after 24 hours Assessment and Plan Assessment: 1. Acute renal failure on CK D stage IV - Creatinine at time of admission was 4.2; patient had 1 session of hemodialysis with resultant creatinine of 3.39 - Nephrology on board with plans to repeat hemodialysis tomorrow morning 2. Hyperkalemia; related to acute renal failure; patient was treated with hyperkalemia package in ED and repeat potassium level is 5.3 down from 7.4 in ED; we will monitor strict failure function and electrolytes. Further rec ommendations pending clinical course 3. Left hemiplegia; possibly acute versus subacute CVA; neurology on board and patient is recommended MRI - CT of the head is reported as age-related changes of atrophy and chronic ischemia. CTA of head and neck: Is reported as no significant abnormality is seen with the vasculature to suggest acute cerebral vascular accident, consider MRI for additional evaluation as indicated. Patient remains on aspirin 81 mg daily; statins are not recommended due to hist ory of liver cirrhosis and ascites - We will order TSH, HbA1c, lipid panel and 2-D echo - PT/OT/WALLPAPER INSPECTOR consulted 4. Sclerotic area within cervical spine; seen on evaluation of cervical spine with CT, metastatic disease is not excluded and bone scan is recommended 5. Hypotension/history of hypertension; likely multifactorial; patient remains on norepinephrine with plans to wean off as able 6. Hypoglycemia; patient does have history of diabetes mellitus type 2; currently on D10 at a rate of 25 mL an hour 7. CAD/ischemic cardiomyopathy; patient has an ejection fraction of 40%; history of CABG in the past 8. Hyperlipidemia; statin therapy not recommended at this time. History of liver cirrhosis and ascites; lipid profile is ordered DVT prophylaxis; SCDs CODE STATUS; full code per discussion with patient's daughter Taylor; family is planning to drive into town to visit patient and will make further decisions
--- NOTE | 2021-05-23 16:00 | ECHOF ---
Referral Reason:stroke. Limited 2D echo MEASUREMENTS -------- HEIGHT: 182.9 cm WEIGHT: 90.7 kg BP: FINDINGS -------- Undetermined rhythm. Echo done 04/04: Limited echo for TIA. Overall left ventricular systolic function is severely impaired with, an EF < 20%. CONCLUSIONS -------- 1. Echo done 04/04: Limited echo for TIA. 2. Overall left ventricular systolic function is severely impaired with, an EF < 20%. CUSTOMER CONSULTING MANAGER: Ammy Tiwari RDCS
--- NOTE | 2021-05-23 16:00 | ECHOF ---
Referral Reason:a-fib MEASUREMENTS -------- HEIGHT: 182.9 cm WEIGHT: 97.5 kg BP: 121/81 IVSd: 1.4 cm (0.6 - 1.1) LVIDd: 3.3 cm (3.9 - 5.3) LVPWd: 1.7 cm (0.6 - 1.1) EDV(Teich): 43 ml IVSs: 1.4 cm LVIDs: 3.1 cm LVPWs: 1.4 cm %IVS Thck: 0 % ESV(Teich): 38 ml EF(Teich): 10 % %FS: 4 % SV(Teich): 4 ml AV Vmax: 1.22 m/s AV maxP.95 mmHg FINDINGS -------- Atrial fibrillation. This was a technically adequate study. Limited Study The left ventricular size is normal. There is moderate concentric left ventricular hypertrophy. T here is severe global hypokinesis of LV . Overall left ventricular systolic function is severely im paired with, an EF < 20%. There is no pericardial effusion. CONCLUSIONS -------- 1. The left ventricular size is normal. 2. There is moderate concentric left ventricular hypertrophy. 3. There is severe global hypokinesis of LV . 4. Overall left ventricular systolic function is severely impaired with, an EF < 20%. WINDOWS TECHNICAL SPECIALIST: Yara Castillo [facility]
[2021-05-23 17:12] LABS: Glucose,Whole Blood 186 mg/dL (75-99)
[2021-05-23 21:05] LABS: Glucose,Whole Blood 277 mg/dL (75-99)
[2021-05-24 00:22] LABS: Glucose,Whole Blood 260 mg/dL (75-99)
[2021-05-24 04:33] LABS: Glucose,Whole Blood 248 mg/dL (75-99)
[2021-05-24 05:26] VITALS: TEMP 98
[2021-05-24] MEDS ORDERED: AMIODARONE 450 MG in DEXTROSE 5% IN WATER 250 ML IV SCH ×2 (07:15)
--- NOTE | 2021-05-24 07:23 | P.PN ---
Subjective Progress Note Date: 05/24/21 Principal diagnosis: Paroxysmal atrial fibrillation The patient is a 65-year-old gentleman with CAD and status post CABG as well as ischemic cardiomyopathy as well as chronic kidney disease who was admitted to the hospital with acute on chronic renal failure and change in mental status. There is also a possibility that the patient suffered from stroke. We consulted to see the patient mainly because of atrial fibrillation with RVR which is a new Diagnosis to the patient. The patient was seen this morning. Definitely he does have a change in mental status and he is more lethargic. He does have crackles on examination and bilateral wheezing. I'm going to obtain a chest x-ray on him. Hemodynamically he is hypotensive and requiring vasopressors small dose. He is also in A. fib with RVR and currently he is on amiodarone IV. His kidney function is worse. Nephrology is on the case. He underwent an echocardiogram and that revealed severe LV dysfunction with EF around 20%. His previous ejection fraction was between 40-45%. Overall the prognosis is poor. Please note that the patient does have history of liver cirrhosis as well. Objective - Vital Signs Vital signs: Vital Signs Temp 98.0 F 05/24/21 04:00 Pulse 128 H 05/24/21 07:00 Resp 28 H 05/24/21 07:00 BP 103/76 05/24/21 07:00 Pulse Ox 88 L 05/24/21 07:00 Intake & Output 05/23/21 05/24/21 05/24/21 18:59 06:59 18:59 Intake Total 750 733.493 50 Output Total 175 55 5 Balance 575 678.493 45 Weight 97.9 kg 105 kg Intake: IV 250 550 50 0.9 250 Dextrose 5% in Water 1, 550 50 000 ml @ 50 mls/hr IV . Q23H [facility] with Sodium Bicarb (1 Meq/ml) 150 ml Rx#:[id number] Intake, IV Titration 500 183.493 Amount Amiodarone 450 mg In 250 Dextrose 5% in Water 250 ml @ 0.5 MG/MIN 16.667 mls/hr IV .Q15H [facility] Rx#: [id number] Norepinephrine 32 mg In 250 183.493 Sodium Chloride 0.9% 218 ml @ 0.05 MCG/KG/MIN 2. 126 mls/hr IV .Q24H [facility] Rx#:[id number] Output: Urine 175 55 5 Other: Voiding Method Indwelling Catheter Indwelling Catheter - Constitutional General appearance: Present: no acute distress - Respiratory Respiratory: bilateral: rales, wheezing - Cardiovascular Rhythm: irregularly irregular - Labs CBC & Chem 7: 05/23/21 04:45 05/23/21 20:30 Labs: Abnormal Lab Results - Last 24 Hours (Table) 05/23/21 05/23/21 05/23/21 Range/Units 09:18 09:18 12:46 PT (9.0-12.0) sec INR (<1.2) Potassium 5.5 H (3.5-5.1) mmol/L POC Glucose (mg/dL) 290 H (75-99) mg/dL Plasma Lactic Acid Oz 3.0 H* (0.7-2.0) mmol/L 05/23/21 05/23/21 05/23/21 Range/Units 13:00 17:10 21:02 PT 13.7 H (9.0-12.0) sec INR 1.3 H (<1.2) Potassium (3.5-5.1) mmol/L POC Glucose (mg/dL) 186 H 277 H (75-99) mg/dL Plasma Lactic Acid Oz (0.7-2.0) mmol/L 05/24/21 05/24/21 Range/Units 00:20 04:31 PT (9.0-12.0) sec INR (<1.2) Potassium (3.5-5.1) mmol/L POC Glucose (mg/dL) 260 H 248 H (75-99) mg/dL Plasma Lactic Acid Oz (0.7-2.0) mmol/L Microbiology - Last 24 Hours (Table) 05/21/21 18:33 Blood Culture - Preliminary Blood No Growth after 48 hours 05/21/21 18:15 Blood Culture - Preliminary Blood No Growth after 48 hours Assessment and Plan Assessment: Assessment #1 acute on chronic renal failure #2 change in mental status which has improved #3 possible stroke. Workup is in process #4 paroxysmal atrial fibrillation seems to be new with the diagnosis the patient #5 coronary artery disease #6 cardiomyopathy was EF between 20-25% which has fallen from 40-45% Plan #1 continue the current dose of amiodarone #2 continue antiplatelet #3 consider anticoagulation #4 consider discussing the prognosis with the family #5 follow-up with the patient #6 obtain a chest x-ray #7 the patient continues to be seen by the critical care team as well as nephrology team #8 consider giving the patient diuretics as well
[2021-05-24 07:43] LABS: Albumin 2.3 g/dL (3.5-5.0); Magnesium 1.9 mg/dL (1.6-2.3); Potassium 4.5 mmol/L (3.5-5.1); Total Protein 5.3 g/dL (6.3-8.2)
[2021-05-24 07:45] LABS: Total Bilirubin 0.5 mg/dL (0.2-1.3)
[2021-05-24 07:51] LABS: Glucose,Whole Blood 235 mg/dL (75-99)
[2021-05-24 08:09] LABS: Phosphorus 9.9 mg/dL (2.5-4.5)
[2021-05-24 08:15] LABS: Glucose,Whole Blood 244 mg/dL (75-99)
[2021-05-24] MEDS ORDERED: SODIUM BICARB 8.4% 50 ML SYR (1 MEQ/ML) IV STA (09:15)
--- NOTE | 2021-05-24 09:16 | P.PN ---
Subjective Patient is seen in follow for acute kidney injury on chronic kidney disease. Currently hemodialysis dependent. Unable to tolerate ultrafiltration due to hemodynamic instability. On high-dose Levophed. Urine output about 5-10 mL an hour. On 4 L nasal cannula. On amiodarone drip for A. fib. Lethargic. Vital signs are stable. On vasopressor support. In A. fib. General: On nasal cannula. HEENT: Head exam is unremarkable. LUNGS: Breath sounds decreased. HEART: Irregular rate and rhythm. ABDOMEN: Soft, distention noted. EXTREMITITES: 2+ edema. Objective - Vital Signs Vital signs: Vital Signs Temp 98.0 F 05/24/21 08:00 Pulse 112 H 05/24/21 08:00 Resp 27 H 05/24/21 08:00 BP 95/67 05/24/21 08:00 Pulse Ox 87 L 05/24/21 08:00 Intake & Output 05/23/21 05/24/21 05/24/21 18:59 06:59 18:59 Intake Total 750 733.493 150 Output Total 175 55 45 Balance 575 678.493 105 Weight 97.9 kg 105 kg Intake: IV 250 550 150 0.9 250 Dextrose 5% in Water 1, 550 150 000 ml @ 50 mls/hr IV . Q23H [facility] with Sodium Bicarb (1 Meq/ml) 150 ml Rx#:[id number] Intake, IV Titration 500 183.493 Amount Amiodarone 450 mg In 250 Dextrose 5% in Water 250 ml @ 0.5 MG/MIN 16.667 mls/hr IV .Q15H [facility] Rx#: [id number] Norepinephrine 32 mg In 250 183.493 Sodium Chloride 0.9% 218 ml @ 0.05 MCG/KG/MIN 2. 126 mls/hr IV .Q24H [facility] Rx#:[id number] Output: Urine 175 55 45 Other: Voiding Method Indwelling Catheter Indwelling Catheter - Labs CBC & Chem 7: 05/23/21 04:45 05/24/21 06:50 Labs: Abnormal Lab Results - Last 24 Hours (Table) 05/23/21 05/23/21 05/23/21 Range/Units 09:18 09:18 12:46 PT (9.0-12.0) sec INR (<1.2) Sodium (137-145) mmol/L Potassium 5.5 H (3.5-5.1) mmol/L Carbon Dioxide (22-30) mmol/L BUN (9-20) mg/dL Creatinine (0.66-1.25) mg/dL Glucose (74-99) mg/dL POC Glucose (mg/dL) 290 H (75-99) mg/dL Plasma Lactic Acid Oz 3.0 H* (0.7-2.0) mmol/L Calcium (8.4-10.2) mg/dL Phosphorus (2.5-4.5) mg/dL Total Protein (6.3-8.2) g/dL Albumin (3.5-5.0) g/dL 05/23/21 05/23/21 05/23/21 Range/Units 13:00 17:10 21:02 PT 13.7 H (9.0-12.0) sec INR 1.3 H (<1.2) Sodium (137-145) mmol/L Potassium (3.5-5.1) mmol/L Carbon Dioxide (22-30) mmol/L BUN (9-20) mg/dL Creatinine (0.66-1.25) mg/dL Glucose (74-99) mg/dL POC Glucose (mg/dL) 186 H 277 H (75-99) mg/dL Plasma Lactic Acid Oz (0.7-2.0) mmol/L Calcium (8.4-10.2) mg/dL Phosphorus (2.5-4.5) mg/dL Total Protein (6.3-8.2) g/dL Albumin (3.5-5.0) g/dL 05/24/21 05/24/21 05/24/21 Range/Units 00:20 04:31 06:50 PT (9.0-12.0) sec INR (<1.2) Sodium 134 L (137-145) mmol/L Potassium (3.5-5.1) mmol/L Carbon Dioxide 18 L (22-30) mmol/L BUN 79 H (9-20) mg/dL Creatinine 3.94 H (0.66-1.25) mg/dL Glucose 272 H (74-99) mg/dL POC Glucose (mg/dL) 260 H 248 H (75-99) mg/dL Plasma Lactic Acid Oz (0.7-2.0) mmol/L Calcium 7.0 L (8.4-10.2) mg/dL Phosphorus 9.9 H* (2.5-4.5) mg/dL Total Protein 5.3 L (6.3-8.2) g/dL Albumin 2.3 L (3.5-5.0) g/dL 05/24/21 05/24/21 Range/Units 07:49 08:14 PT (9.0-12.0) sec INR (<1.2) Sodium (137-145) mmol/L Potassium (3.5-5.1) mmol/L Carbon Dioxide (22-30) mmol/L BUN (9-20) mg/dL Creatinine (0.66-1.25) mg/dL Glucose (74-99) mg/dL POC Glucose (mg/dL) 235 H 244 H (75-99) mg/dL Plasma Lactic Acid Oz (0.7-2.0) mmol/L Calcium (8.4-10.2) mg/dL Phosphorus (2.5-4.5) mg/dL Total Protein (6.3-8.2) g/dL Albumin (3.5-5.0) g/dL Microbiology - Last 24 Hours (Table) 05/21/21 18:33 Blood Culture - Preliminary Blood No Growth after 48 hours 05/21/21 18:15 Blood Culture - Preliminary Blood No Growth after 48 hours Assessment and Plan Plan: Assessment: 1. Acute kidney injury secondary to ATN secondary to hypotension/shock. Oliguric. Currently hemodialysis dependent. 2. Chronic kidney disease stage IV with baseline creatinine near 2 secondary to hepatorenal syndrome. 3. Hyperkalemia secondary to acute kidney injury, spironolactone and acidosis. Improved postdialysis. 4. Metabolic acidosis secondary to acute kidney injury, lactic acidosis and metformin. 5. History of liver cirrhosis. Patient had paracentesis on 04/29/2021 with 4.6 L drained. 6. Ascites. 7. Lower extremity edema. 8. Shock maintained on Levophed. 9. A. fib with RVR maintained on amiodarone drip. 10. Hyperphosphatemia secondary to acute kidney injury. 11. Cardiomyopathy with EF 20-25%. Plan: Maintain bicarb drip at 50 mL an hour. No response in urine output despite high-dose IV Lasix given yesterday. He had his third treatment of hemodialysis yesterday. Hold today due to hemodynamic instability. Patient is unable to tolerate ultrafiltration. Continue to assess daily for need for renal replacement therapy. Will require another paracentesis this admission - will give albumin pre-and post paracentesis. Wean Levophed. Follow-up cultures. Add PhosLo if tolerating oral intake. 2 A of sodium bicarbonate IV push today. Prognosis guarded.
[2021-05-24] MEDS: DEXTROSE 10% IN WATER 1,000 ML IV SCH (09:37)
[2021-05-24] MEDS: ASPIRIN 300 MG SUPP RECTAL SCH (10:22)
[2021-05-24 10:27] VITALS: BP 83/66; PULSE 74; RESP 26
--- NOTE | 2021-05-24 10:39 | XR ---
EXAMINATION TYPE: XR chest 1V portable DATE OF EXAM: 05/24/2021 COMPARISON: Chest x-ray dated 05/21/2021 HISTORY: Shortness of breath TECHNIQUE: Single frontal view of the chest is obtained. FINDINGS: Lung volumes are low. Bibasilar patchy attenuation is again noted. Patient is post median sternotomy. No evident pneumothorax. The heart is likely stable but obscured. There are overlying art ifacts. IMPRESSION: Expiratory exam. Probable basilar atelectasis, difficult to exclude pneumonia.
[2021-05-24] MEDS ORDERED: CALCIUM ACETATE 667 MG TAB PO SCH (12:30)
--- NOTE | 2021-05-29 08:12 | P.DS ---
Providers Date of admission: 05/21/21 20:34 Expected date of discharge: 05/24/21 Attending physician: Ana Maria Polk Consults: 05/21/21 20:34 Consult Physician Stat Consulting Provider: Gumaro Flores Consult Reason/Comments: ARF, Hyperkalemia Do you want consulting provider notified?: Already Contacted Consult Physician Urgent Consulting Provider: Papito Solomon Consult Reason/Comments: Hyperkalemia, acute renal failure Do you want consulting provider notified?: Already Contacted 05/21/21 22:38 Consult Physician Stat Consulting Provider: Lars Rush Consult Reason/Comments: Ramón catheter placement Do you want consulting provider notified?: Already Contacted 05/22/21 11:29 Consult Physician Stat Consulting Provider: Brent Pascual Consult Reason/Comments: lt side flaccid Do you want consulting provider notified?: Yes 05/22/21 18:28 Consult Physician Urgent Consulting Provider: Jose Sr Consult Reason/Comments: new afib with rvr Do you want consulting provider notified?: Yes Primary care physician: Víctor Paz [facility] Course: 65-year-old male transferred from [facility] for acute renal failure and hyperkalemia. Patient also had questionable pneumonia and was Mr. to antibiotics at the outside hospital. He states that over the last few days he has been feeling more fatigued which prompted him to present to the emergency department at the outside hospital. He does have a history of CK D, he does have a history also of hyperkalemia which was previously treated by Dr. Chen, which is why transfer was accepted. He is not on dialysis and never has been on dialysis. Does have a history of CABG, diabetes, hypertension. He states he was having generalized weakness for multiple days prior to arrival. He denies any cough, shortness of breath, chest pain, abdominal pain, nausea, vomiting, diarrhea. States he did notice decreased urine output. Prior episode of renal failure was secondary to obstruction per outside hospital. They placed a Blanco catheter and had a small amount of urine produced. He presents emergency department for further evaluation. At the outside hospital he did receive one round of hyper healing a cocktail including Kayexalate, calcium, bicarbonate, insulin, D50, albuterol. Patient does have a history of a chronic left bundle branch block. Current lab results reveal a white count of 22.3. Hemoglobin 14.3. Sodium 135. Potassium 5.3. Bicarb 21. BUN 93. Creatinine 3.39. Blood glucose 36, lactic acid 3.2. Troponin 0.18, 0.29. Urinalysis with moderate blood and 1+ protein and few bacteria. Salguero virus by PCR not detected. Hepatitis B screen negative. Patient is admitted to ICU The patient is arousable answering questions appropriately but moaning. He denies any pain. He is maintaining O2 saturations in the mid 90s on 4 L nasal cannula. He is currently afebrile. Chest x-ray reveals poor expiratory effort with infiltrate and atelectasis of the left lower lobe. Abdominal ultrasound reveals fluid in all 4 quadrants with a history of previous ascites and paracentesis. Computed tomography scan of the brain revealed age-related atrophy with chronic ischemia. Urology to see patient and make further recommendations 05/23/2021 Patient is seen and evaluated in ICU with daughter at bedside; currently undergoing hemodialysis Patient had a significant difference and then developed atrial fibrillation with RVR; has been placed on IV amiodarone and heparin per cardiology service Patient continues to have marked weakness; neurology on board and recommending MRI of the brain along with CT of cervical spine for concern about possibility of myelopathy or cervical lesion causing profound weakness in both upper and lower extremities Patient has been placed on hemodialysis; remains on bicarb infusion as recommended by nephrology Continues to have recurrent episodes of hypoglycemia and remains on D10 infusion Patient underwent hemodialysis 3 times; recommended HD on 05/24/2021 which couldn't be initiated due to hemodynamic instability despite pressor support and resuscitative efforts; patient continued to decline and on 05/24/2021 Patient Condition at Discharge: Serious Plan - Discharge Summary Discharge Rx Participant: No New Discharge Prescriptions: No Action Aspirin [Adult Low Dose Aspirin EC] 81 mg PO DAILY@0900 metFORMIN HCL [Glucophage] 1,000 mg PO BID@0900,1700 Clopidogrel [Plavix] 75 mg PO DAILY@0900 Cyanocobalamin (Vitamin B-12) [Vitamin B-12] 1,000 mcg PO DAILY@0900 Acetaminophen Tab [Tylenol] 650 mg PO Q6HR PRN tab PRN Reason: Mild Pain Or Fever > 100.5 Sodium Bicarbonate Tab 650 mg PO Q12H PRN PRN Reason: Gi Upset Magnesium Oxide [Mag-Ox] 400 mg PO BID@0900,1700 Furosemide [Lasix] 40 mg PO BID@0900,1700 Thiamine [Vitamin B-1] 200 mg PO DAILY@0900 Lansoprazole [Prevacid] 15 mg PO DAILY@0600 Docusate [Colace] 100 mg PO DAILY@0900 HYDROcodone/APAP 5-325MG [Jefferson 5-325] 1 tab PO Q6HR PRN PRN Reason: Pain Spironolactone [Aldactone] 50 mg PO DAILY@0900 Atorvastatin Calcium [Lipitor] 20 mg PO HS@2100 Insulin Glargine,Hum.rec.anlog [Semglee Pen] 20 units SQ BID@0900,2100 Discharge Medication List Aspirin [Adult Low Dose Aspirin EC] 81 mg PO DAILY@0900 02/13/17 [History] metFORMIN HCL [Glucophage] 1,000 mg PO BID@0900,1700 02/13/17 [History] Clopidogrel [Plavix] 75 mg PO DAILY@0900 12/24/20 [History] Cyanocobalamin (Vitamin B-12) [Vitamin B-12] 1,000 mcg PO DAILY@0900 03/17/21 [History] Acetaminophen Tab [Tylenol] 650 mg PO Q6HR PRN tab 03/20/21 [Rx] Lansoprazole [Prevacid] 15 mg PO DAILY@0600 04/25/21 [History] Sodium Bicarbonate Tab 650 mg PO Q12H PRN 04/25/21 [History] Atorvastatin Calcium [Lipitor] 20 mg PO HS@2100 05/21/21 [History] Docusate [Colace] 100 mg PO DAILY@0900 05/21/21 [History] Furosemide [Lasix] 40 mg PO BID@0900,1700 05/21/21 [History] HYDROcodone/APAP 5-325MG [Jefferson 5-325] 1 tab PO Q6HR PRN 05/21/21 [History] Insulin Glargine,Hum.rec.anlog [Semglee Pen] 20 units SQ BID@0900,2100 05/21/21 [History] Magnesium Oxide [Mag-Ox] 400 mg PO BID@0900,1700 05/21/21 [History] Spironolactone [Aldactone] 50 mg PO DAILY@0900 05/21/21 [History] Thiamine [Vitamin B-1] 200 mg PO DAILY@0900 05/21/21 [History] Follow up Appointment(s)/Referral(s): Víctor Paz MD [Primary Care Provider] - 1-2 days Discharge Disposition: - Preliminary Cause of Preliminary Cause of : Acute renal failure/ metabolic acidosis
--- NOTE | 2021-06-03 07:22 | CDI ---
Documentation Clarification Form Date: 05/23/2021 01:40:00 PM (Resubmitted 06/03/2021) From: Maryan Galeana CCS, CCDS Admit Date: 05/21/2021 08:34:00 PM Patient Name: Stalin Paula Visit Number: [id number] Discharge Date: 05/24/2021 02:02:00 PM ATTENTION: The Clinical Documentation Specialists (CDI) and [facility] Coding Staff appreciate your assistance in clarifying documentation. Please respond to the clarification below the line at the bottom and electronically sign. The CDI & [facility] Coding staff will review the response and follow-up if needed. Please note: Queries are made part of the Legal Health Record. If you have any questions, please contact the author of this message via ITS. Dr. Vinod Weller: Thank you for signing this query, please document your response prior to signing. Your patient has the documented diagnosis of unspecified Heart Failure in the patient's Past Medical History throughout the chart including the 05/21 ED Note, 05/22 History & Physical and subsequent Consults. Additional information regarding the Type & Acuity of CHF is requested. 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 Home Meds include: Insulin sq, Metformin, Mag-Ox, Lasix 40 mg BID, Plavix, Aldactone Clinical Indicators: Presented to the ED on 05/21 via EMS with SOB. Transferred from [facility] for Acute Renal Failure and Hyperkalemia, questionable Pneumonia. Admit with SHILPA, Hyperkalemia, Atelectasis, Elevated Troponin and Hypoglycemia 05/21 VS: T 97.6, P 81, R 18, BP 119/75, PO 99 4Lnc, BMI: 29.3 05/21 LAB: WBC 11.8, Neutrophils 10.0; Na 127, K 7.4, 6.9; CO2 13, BUN 115, Creatinine 4.23, Glucose 46, Lactic Acid: 2.6, 4.4; Calcium 7.7, Magnesium 2.4, AST 15, Troponin 0.187, 0.181; Total Protein 6.0, Albumin 2.8 05/21 CXR: Poor inspiration with infiltrate and atelectasis left lower lobe mostly new, No heart failure is seen. Most recent ECHO 03/19/2021: Moderate concentric LVH, Left ventricular systolic function is mildly - moderately impaired w/EF 40-45%. Treatment 05/21: Admit to ICU, O2 4Lnc, IV Fluid 999 mls/hr q31M x2, IV Calcium Gluconate, INH Ventolin x1, IV Dextrose 40 ml x1, IV Insulin 10 unit x2, IV Na Bicarb 40 ml x7, po Kayexalate 30 gm x1 05/22: IV Levophed, IV Lasix 80 mg x1 05/23: IV Lasix 80 mg x1 In your professional opinion, can you please clarify the Type and Acuity of CHF if known? [ ] Acute Systolic Heart Failure [ ] Chronic Systolic Heart Failure [ ] Acute on Chronic Systolic Heart Failure [ ] Heart Failure ruled out [ ] Other, please specify [ ] Unable to determine (Template Last Revised: July 2020) MTDD
--- NOTE | 2021-06-24 07:23 | CDI ---
Documentation Clarification Form Date: 05/23/2021 01:40:00 PM From: Maryan Galeana CCS, CCDS Admit Date: 05/21/2021 08:34:00 PM Patient Name: Stalin Paula Visit Number: [id number] Discharge Date: 05/24/2021 02:02:00 PM ATTENTION: The Clinical Documentation Specialists (CDI) and [facility] Coding Staff appreciate your assistance in clarifying documentation. Please respond to the clarification below the line at the bottom and electronically sign. The CDI & [facility] Coding staff will review the response and follow-up if needed. Please note: Queries are made part of the Legal Health Record. If you have any questions, please contact the author of this message via ITS. Dr. Vinod Weller: Please document your response to this query prior to signing. Your patient has the documented diagnosis of unspecified Heart Failure in the patient's Past Medical History throughout the chart including the 05/21 ED Note, 05/22 History & Physical and subsequent Consults. Additional information regarding the Type & Acuity of CHF is requested. 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 Home Meds include: Insulin sq, Metformin, Mag-Ox, Lasix 40 mg BID, Plavix, Aldactone Clinical Indicators: Presented to the ED on 05/21 via EMS with SOB. Transferred from [facility] for Acute Renal Failure and Hyperkalemia, questionable Pneumonia. Admit with SHILPA, Hyperkalemia, Atelectasis, Elevated Troponin and Hypoglycemia 05/21 VS: T 97.6, P 81, R 18, BP 119/75, PO 99 4Lnc, BMI: 29.3 05/21 LAB: WBC 11.8, Neutrophils 10.0; Na 127, K 7.4, 6.9; CO2 13, BUN 115, Creatinine 4.23, Glucose 46, Lactic Acid: 2.6, 4.4; Calcium 7.7, Magnesium 2.4, AST 15, Troponin 0.187, 0.181; Total Protein 6.0, Albumin 2.8 05/21 CXR: Poor inspiration with infiltrate and atelectasis left lower lobe mostly new, No heart failure is seen. Most recent ECHO 03/19/2021: Moderate concentric LVH, Left ventricular systolic function is mildly - moderately impaired w/EF 40-45%. Treatment 05/21: Admit to ICU, O2 4Lnc, IV Fluid 999 mls/hr q31M x2, IV Calcium Gluconate, INH Ventolin x1, IV Dextrose 40 ml x1, IV Insulin 10 unit x2, IV Na Bicarb 40 ml x7, po Kayexalate 30 gm x1 05/22: IV Levophed, IV Lasix 80 mg x1 05/23: IV Lasix 80 mg x1 In your professional opinion, can you please clarify the Type and Acuity of CHF if known? [ ] Acute Systolic Heart Failure [ ] Chronic Systolic Heart Failure [ ] Acute on Chronic Systolic Heart Failure [ ] Heart Failure ruled out [ ] Other, please specify [ ] Unable to determine (Template Last Revised: July 2020) 2/2: No response to query, canceled. (CDS:DAVID) BREANNE
== END 2021-05-24 14:02 | disposition expired | DRG 682 ==
LOC: EC 17:45 → 2SICU 20:34
PROVIDERS: ADMIT Hospitalist; ATTEND Hospitalist
PROC: 5A1D70Z Performance of Urinary Filtration, Intermittent, Less than 6 Hours Per Day (ICD-10-PCS; 2021-05-21)
PROC: 06HM33Z Insertion of Infusion Device into Right Femoral Vein, Percutaneous Approach (ICD-10-PCS; 2021-05-21)
PROC: 3E033XZ Introduction of Vasopressor into Peripheral Vein, Percutaneous Approach (ICD-10-PCS; principal; 2021-05-22)
DX: N17.0 Acute kidney failure with tubular necrosis (principal); G93.41 Metabolic encephalopathy; K76.7 Hepatorenal syndrome; I13.2 Hypertensive heart and chronic kidney disease with heart failure and with stage 5 chronic kidney disease, or end stage renal disease; E87.1 Hypo-osmolality and hyponatremia; E87.2 Acidosis; J98.11 Atelectasis; R18.8 Other ascites; R57.9 Shock, unspecified; G81.94 Hemiplegia, unspecified affecting left nondominant side; N18.6 End stage renal disease; N18.4 Chronic kidney disease, stage 4 (severe); E03.9 Hypothyroidism, unspecified; E78.5 Hyperlipidemia, unspecified; E83.39 Other disorders of phosphorus metabolism; E86.0 Dehydration; E11.649 Type 2 diabetes mellitus with hypoglycemia without coma; E86.1 Hypovolemia; E87.5 Hyperkalemia; I25.10 Atherosclerotic heart disease of native coronary artery without angina pectoris; I25.5 Ischemic cardiomyopathy; Z66 Do not resuscitate; I44.7 Left bundle-branch block, unspecified; I48.0 Paroxysmal atrial fibrillation; I50.9 Heart failure, unspecified; I95.3 Hypotension of hemodialysis; E11.22 Type 2 diabetes mellitus with diabetic chronic kidney disease; K14.0 Glossitis; K74.60 Unspecified cirrhosis of liver; Z20.822 Contact with and (suspected) exposure to COVID-19; Z79.02 Long term (current) use of antithrombotics/antiplatelets; Z79.82 Long term (current) use of aspirin; Z79.84 Long term (current) use of oral hypoglycemic drugs; Z79.899 Other long term (current) drug therapy; Z80.1 Family history of malignant neoplasm of trachea, bronchus and lung; Z85.46 Personal history of malignant neoplasm of prostate; Z87.891 Personal history of nicotine dependence; Z95.1 Presence of aortocoronary bypass graft; Z99.2 Dependence on renal dialysis
CPT/HCPCS: 36415; 70450; 70496; 70498; 71045; 76705; 80048; 80053; 80061; 81001; 83036; 83605; 83735; 84100; 84132; 84439; 84443; 84484; 85025; 85610; 86706; 87040; 87340; 87635; 90935; 93005; 93308; 94640; 96365; 96375; 99291